=== PATIENT | male | born 1985 | race Caucasian/White ===

== ENCOUNTER 2021-09-03 18:34 | Inpatient (IN) ==
[2021-09-03] MEDS ORDERED: HYDROmorphone INJ 0.5 MG/0.5 ML SYR IV STA (18:53)
[2021-09-03] MEDS ORDERED: SODIUM CHLORIDE 0.9% 1000ML 1,000 ML IV STA (18:53)
[2021-09-03] MEDS ORDERED: ONDANSETRON INJ 2 MG/ML 2 ML VIAL IV STA (18:53)
--- NOTE | 2021-09-03 19:03 | Emergency Department Note ---
Impression & Plan Necrotizing pancreatitis, Pseudocyst of pancreas, Acute epigastric pain, Nausea, History of alcohol abuse ED Provider Note Provider: Christofer Hatch MD DATE OF SERVICE: 09/03/2021 CHIEF COMPLAINT: Pancreatitis HISTORY OF PRESENT ILLNESS: Patient is a 36-year-old gentleman history of previous alcohol abuse presenting here today after leaving AGAINST MEDICAL ADVICE from [facility] for pancreatitis. Patient states he had one prior episode in June around the [place] area was hospitalized for a month. States over the past 2 weeks he developed some mild epigastric abdominal disco mfort that worsened over the last several days and 2 days ago went to [facility]. Was diagnosed with pancreatitis. There as well as a pseudocyst. Patient was arranged to transfer to the [facility] system with a 10 to 14-day ETA for transfer. Was receiving IV fluids and nausea medicine antiemetics. Given the delay for transfer the patient decided to leave AGAINST MEDICAL ADVICE and come here for further treatment. Patient denies fever. Patient states he stopped alcohol abuse and only has a rare alcohol here and there anymore. Has been having some fatty food however and wonders if this may have provoked the recurrent pancreatitis. REVIEW OF SYSTEMS: A total of 10 review of systems was obtained and negative except as stated above in the HPI. PAST MEDICAL HISTORY: As noted above MEDICATIONS: Reviewed home medications SOCIAL HISTORY: Heavy alcohol use history much moderated recently, unemployed currently PHYSICAL EXAM: GENERAL: alert and oriented in no acute distress on stretcher Head: normocephalic and atraumatic EYES: No injection, discharge or icterus. NECK: Trachea midline. LUNGS: Airway patent. No retractions and no tachypnea HEART: Regular rate and rhythm. No chest wall tenderness ABDOMEN: Soft with mid upper abdominal tenderness diffusely. SKIN: Acyanotic, warm, dry, without rashes EXTREMITIES: Without swelling, tenderness or deformity NEUROLOGICAL: No focal deficits. No aphasia. No facial droop or slurred speech. Ambulatory. EK bpm normal sinus rhythm. No PVC or PAC. No acute ST segment elevation or depression. QTC 453. CONTINUOUS CARDIAC MONITORING: was ordered and showed a heart rate of 80s-100s bpm in normal sinus rhythm to sinus tachycardia Patient's laboratory studies and imaging reviewed. Differential includes Appendicitis, infections, diverticulitis, obstruction, mesenteric ischemia, aortic pathology, inflammatory bowel disease, renal colic, PUD, pancreatitis, biliary pathology, hernia, volvulus, constipation, as well as other pathologies. IMPRESSION/MEDICAL DECISION MAKING: Patient with previous imaging and labs from [facility] where he was admitted for 2 days for pancreatitis. Sunday made come here for further care of a pseudocyst. Patient does have initial blood work and CT report. Patient in significant pain but afebrile here. Given some IV Dilaudid and antiemetics. CT scan repeated to look for change. Blood work today shows white blood cell count of 10.8 decreased from 11.6 on outside labs from 2 days ago. No significant hypokalemia or hyponatremia noted. Bilirubin of 0.7. No transaminitis. Lipase elevated 2532. Troponin undetectable and again I doubt this is cardiac in nature. CT report per radiology with evidence of necrotizing pancreatitis with multiloculated fluid collections likely a pseudocyst reportedly similar to previous imaging from the from outside facility that are available here. The splenic vein is patent. Trace ascites are noted that had somewhat increased from previous as well as a increased left greater than right pleural effusions. There was some sludge and nonspecific thickening of the gallbladder noted on the CT scan as well. Given the significant findings I discussed with gastroenterology Dr. Paez. She recommended the patient's pain was controlled he could likely be discharged home with clear diet recommendation a course of Cipro & Flagyl. Discussed with the patient. He has received several doses of Dilaudid for pain control. He did not feel comfortable going home at this time. Will admit for further pain control. Hospitalist made aware and plans for admission. Discussed briefly with general surgery he did not recommend any acute surgical intervention from their perspective at this time. Additional outside records will be attempted to be obtained. DIAGNOSIS: Necrotizing pancreatitis, pseudocyst of the pancreas, epigastric abdominal pain, nausea DISPOSITION: Hospitalist will evaluate Patient was agreeable with this plan. Past Med/Surg History Social History Smoking Status: Current every day smoker Feels Safe at Home: Yes Allergies Allergies Allergy/AdvReac Type Severity Reaction Status Date / Time No Known Allergies Allergy Unverified 09/03/21 19:43 Home Meds Home Medications Medication Instructions Recorded Confirmed amlodipine 10 mg tablet 10 mg PO BID 09/03/21 09/03/21 pantoprazole 40 mg tablet,delayed 40 mg PO BID 09/03/21 09/03/21 release Results & Data (ED) Vital Signs Vital Signs - 24 hr 09/03/21 18:37 09/03/21 22:21 Temperature 36.7 C Temperature Source Temporal Artery Scan Pulse Rate 106 H 66 Pulse Rhythm Regular Respiratory Rate 20 14 Respiratory Effort / Characteristics Non-Labored Spontaneous Respiratory Depth Normal Respiratory Pattern Regular Blood Pressure 145/104 H Blood Pressure Mean 117 Pulse Oximetry 98 95 Oxygen Delivery Method Room Air Room Air Sepsis Recent Fever Within 48 Hours No Sepsis New/Unexplained Change in Mental Status No Sepsis Action Taken by Nursing No Action Required Laboratory Data Result diagrams: 09/03/21 19:30 09/03/21 19:30 Lab Results 09/03/21 09/03/21 09/03/21 Range/Units 19:30 19:30 19:30 WBC 10.85 H (4.8-10.8) K/uL RBC 4.15 L (4.7-6.1) M/uL Hgb 12.9 L (14.0-18.0) g/dL POC Hgb (14.0-18.0) g/dl Hct 39.0 L (42-52) % POC Hct (42-52) % MCV 94.0 (80-100) fL MCH 31.1 (25-34) pg MCHC 33.1 (32-36) g/dL RDW Std Deviation 54.4 H (36.4-46.3) fL RDW Coeff of Gay 15.7 H (11.5-14.5) % Plt Count 429 H (130-400) K/uL MPV 10.3 (7.4-10.4) fL Immature Gran % (Auto) 0.2 % Neut % (Auto) 79.5 % Lymph % (Auto) 11.6 % Cabell % (Auto) 7.1 % Eos % (Auto) 1.4 % Baso % (Auto) 0.2 % Neut # (Auto) 8.63 H (1.4-6.5) K/uL Lymph # (Auto) 1.26 (1.2-3.4) K/uL Cabell # (Auto) 0.77 H (0.11-0.59) K/uL Eos # (Auto) 0.15 (0-0.5) K/uL Baso # (Auto) 0.02 (0-0.2) K/uL Immature Gran # (Auto) 0.02 (0.00-0.02) K/uL PT 14.8 H (9.0-12.0) Seconds INR 1.5 H (0.9-1.1) POC Sodium (135-144) mmol/L Sodium 138 (136-145) mmol/L POC Potassium (3.3-5.0) mmol/L Potassium 3.6 (3.5-5.1) mmol/L POC Chloride (101-112) mmol/L Chloride 104 (98-107) mmol/L Carbon Dioxide 20 L (21-32) mmol/L POC Total CO2 (24-31) mmol/L Anion Gap 14.0 H (3-11) POC Anion Gap (16-25) mmol/L POC BUN (7-18) mg/dl BUN 4 L (7-18) mg/dl Creatinine 0.44 L (0.6-1.4) mg/dl POC Creatinine (0.6-1.3) mg/dl Est Cr Clr Drug Dosing 244.3 ml/min Est GFR ( Amer) > 150.0 ml/min Est GFR (Non-Af Amer) 149.0 ml/min BUN/Creatinine Ratio 8.4 L (10-20) Glucose 94 (70-99) mg/dl POC Glucose (other) (70-99) mg/dl Calcium 8.3 L (8.5-10.1) mg/dl POC Ioniz Calcium Elsi (1.12-1.32) mmol/l Total Bilirubin 0.7 (0.2-1) mg/dl AST 31 (15-37) U/L ALT 14 (12-78) Alkaline Phosphatase 162 H (45-117) U/L Troponin I < 0.015 (0-0.045) ng/ml Total Protein 6.2 L (6.4-8.2) gm/dl Albumin 2.0 L (3.4-5.0) gm/dl Globulin 4.2 H (2.5-4.0) gm/dl Albumin/Globulin Ratio 0.5 L (0.9-2) Lipase 2532 H (73-393) U/L Urine Color Urine Appearance (Clear) Urine pH (4.5-7.5) Ur Specific Hallett (1.000-1.030) Urine Protein (Negative) Urine Glucose (UA) (Negative) Urine Ketones (Negative) Urine Blood (Negative) Urine Nitrite (Negative) Urine Bilirubin (Negative) Urine Urobilinogen (Negative) Ur Leukocyte Esterase (Negative) SARS-CoV-2, RNA, NAAT (NEGATIVE) 09/03/21 09/03/21 09/03/21 Range/Units 19:38 22:18 22:18 WBC (4.8-10.8) K/uL RBC (4.7-6.1) M/uL Hgb (14.0-18.0) g/dL POC Hgb 13.9 L (14.0-18.0) g/dl Hct (42-52) % POC Hct 41 L (42-52) % MCV (80-100) fL MCH (25-34) pg MCHC (32-36) g/dL RDW Std Deviation (36.4-46.3) fL RDW Coeff of Gay (11.5-14.5) % Plt Count (130-400) K/uL MPV (7.4-10.4) fL Immature Gran % (Auto) % Neut % (Auto) % Lymph % (Auto) % Cabell % (Auto) % Eos % (Auto) % Baso % (Auto) % Neut # (Auto) (1.4-6.5) K/uL Lymph # (Auto) (1.2-3.4) K/uL Cabell # (Auto) (0.11-0.59) K/uL Eos # (Auto) (0-0.5) K/uL Baso # (Auto) (0-0.2) K/uL Immature Gran # (Auto) (0.00-0.02) K/uL PT (9.0-12.0) Seconds INR (0.9-1.1) POC Sodium 137 (135-144) mmol/L Sodium (136-145) mmol/L POC Potassium 3.5 (3.3-5.0) mmol/L Potassium (3.5-5.1) mmol/L POC Chloride 102 (101-112) mmol/L Chloride (98-107) mmol/L Carbon Dioxide (21-32) mmol/L POC Total CO2 21 L (24-31) mmol/L Anion Gap (3-11) POC Anion Gap 18.0 (16-25) mmol/L POC BUN < 3 L (7-18) mg/dl BUN (7-18) mg/dl Creatinine (0.6-1.4) mg/dl POC Creatinine 0.4 L (0.6-1.3) mg/dl Est Cr Clr Drug Dosing ml/min Est GFR ( Amer) ml/min Est GFR (Non-Af Amer) ml/min BUN/Creatinine Ratio (10-20) Glucose (70-99) mg/dl POC Glucose (other) 95 (70-99) mg/dl Calcium (8.5-10.1) mg/dl POC Ioniz Calcium Elsi 1.16 (1.12-1.32) mmol/l Total Bilirubin (0.2-1) mg/dl AST (15-37) U/L ALT (12-78) Alkaline Phosphatase (45-117) U/L Troponin I (0-0.045) ng/ml Total Protein (6.4-8.2) gm/dl Albumin (3.4-5.0) gm/dl Globulin (2.5-4.0) gm/dl Albumin/Globulin Ratio (0.9-2) Lipase (73-393) U/L Urine Color Yellow Urine Appearance Clear (Clear) Urine pH 6.0 (4.5-7.5) Ur Specific Hallett > 1.045 H (1.000-1.030) Urine Protein Negative (Negative) Urine Glucose (UA) Negative (Negative) Urine Ketones 4+ H (Negative) Urine Blood Negative (Negative) Urine Nitrite Negative (Negative) Urine Bilirubin Negative (Negative) Urine Urobilinogen Negative (Negative) Ur Leukocyte Esterase Negative (Negative) SARS-CoV-2, RNA, NAAT NEGATIVE (NEGATIVE) Administered Medications Ciprofloxacin (Cipro / D5w) 400 mg in 200 mls @ 100 mls/hr IV NOW STA; Protocol Stop: 09/03/21 23:46 Last Admin: 09/03/21 22:14 Dose: 100 mls/hr Documented by: [id number] Discontinued Medications Hydromorphone HCl (Hydromorphone Inj 0.5 Mg/0.5 Ml Syr) 1 mg IV NOW STA Stop: 09/03/21 18:54 Last Admin: 09/03/21 19:30 Dose: 1 mg Documented by: [id number] Hydromorphone HCl (Hydromorphone Inj 1 Mg/Ml Syringe) 1 mg IV NOW STA Stop: 09/03/21 21:13 Last Admin: 09/03/21 21:35 Dose: 1 mg Documented by: [id number] Sodium Chloride (Nss 1000ml) 1,000 mls @ 999 mls/hr IV .Q1H1M STA Stop: 09/03/21 19:53 Last Infusion: 09/03/21 20:42 Dose: 0 mls/hr Documented by: [id number] Admin: 09/03/21 19:31 Dose: 999 mls/hr Documented by: [id number] Ioversol (Optiray 320 100ml) 94 ml IV ONCE ONE Stop: 09/03/21 19:54 Last Admin: 09/03/21 19:54 Dose: 94 ml Documented by: [id number] Metronidazole (Metronidazole 500 Mg Tab) 500 mg PO NOW STA Stop: 09/03/21 21:48 Last Admin: 09/03/21 22:14 Dose: 500 mg Documented by: [id number] Ondansetron HCl (Ondansetron Inj 2 Mg/Ml 2 Ml Vial) 4 mg IV NOW STA Stop: 09/03/21 18:54 Last Admin: 09/03/21 19:30 Dose: 4 mg Documented by: [id number] Imaging Data Radiologist's Impression: Abdomen/Pelvis CT 09/03/21 18:53 CT SCAN OF THE ABDOMEN AND PELVIS WITH IV CONTRAST CLINICAL HISTORY: Generalized abdominal pain. Acute pancreatitis. COMPARISON STUDY: Abdominal CT dated 09/01/2021. TECHNIQUE: Following the IV administration of 94 cc of Optiray 320, CT scan of the abdomen and pelvis is performed from the lung bases to the proximal femora. Images are reviewed in the axial, sagittal, and coronal planes. IV contrast was administered without complication. A dose lowering technique was utilized adhering to the principles of ALARA. CT DOSE: 405.89 mGy.cm FINDINGS: Lung bases: The heart is normal in size and without pericardial effusion. There are small left and trace right pleural effusions with bibasilar consolidation. T hese have increased in size from previous. There is a 4 mm focus of pleural- based nodularity in the right middle lobe along the minor fissure seen on image #18. 4 mm nodules in the right middle and right lower lobes are seen on images #28 and #38. Liver: The contrast-enhanced liver is enlarged, measuring 22.5 cm in length. The liver demonstrates diffusely diminished attenuation consistent with severe hepatic steatosis. There are foci of geographic fatty sparing. There is no intrahepatic biliary ductal dilatation. The hepatic veins and portal veins are patent. Gallbladder: The gallbladder is filled with hyperdense material. This could represent stones/sludge and/or vicariously excreted contrast. The gallbladder wall appears thickened. No pericholecystic inflammation is seen. Spleen: Normal in size and attenuation. Pancreas: There is marked peripancreatic inflammation and fluid. The pancreatic head and neck appear edematous and enhance normally. The pancreatic body and tail are not well-visualized and likely necrotic. A peripherally enhancing fluid collection is seen in the expected location of the pancreatic body and tail. This measures approximately 4 x 9.5 x 3.5 cm as seen on axial image #34. A loculation extends anteriorly and inferiorly on image #181 measuring approximately 6 x 2.5 cm in axial dimension. An additional loculated fluid collection along the lesser curvature of the stomach is seen on axial image #164 and measures approximately 2.5 x 5 x 3.5 cm. The splenic vein is patent. Adrenal glands: Unremarkable. Kidneys: The contrast enhanced kidneys are normal in size and without hydronephrosis. The kidneys enhance symmetrically. Abdominal vasculature: The abdominal aorta is normal in course and caliber. Bowel: There is no bowel obstruction. The appendix is well-visualized and normal. Inflammatory change of the stomach and duodenum is likely related to adjacent pancreatitis. Peritoneum: No intraperitoneal free air is identified. There is trace upper abdominal ascites, as well as a small volume of ascites in the pelvis. There are fat-containing umbilical and supraumbilical hernias. Lymphadenopathy: Enlarged upper abdominal lymph nodes measure up to 2 cm in short axis and are likely both reactive and related to chronic liver disease. Pelvic viscera: The bladder is mildly distended but otherwise normal in appearance. The prostate and seminal vesicles are normal as visualized. Skeletal structures: No lytic or blastic lesions are seen. There is a chronic/healed left transverse process fracture of L3. IMPRESSION: 1. Findings consistent with necrotizing pancreatitis as detailed above. 2. There is a large, thick walled, and multiloculated fluid collection in the expected location of the pancreatic body and tail which likely presents a pseudocyst. An additional similar-appearing loculated fluid collection is seen along the greater curvature of the stomach. These are similar to 09/01/2021. The sterility of these fluid collections cannot be evaluated by imaging. 3. Small volume of abdominopelvic ascites. This has modestly increased from previous. 4. Hepatomegaly and severe hepatic steatosis. 5. Left larger than right pleural effusions with associated bibasilar con solidation. These have increased from previous. 6. Hyperdense material within the gallbladder could represent stones/sludge and/or vicariously excreted contrast. There is nonspecific gallbladder wall thickening which may be related to adjacent hepatocellular disease. Correlate clinically for evidence of concurrent cholecystitis. 7. Additional findings as above. ACT 112: Negative or not required by law. Electronically signed by: Davidson Milan M.D. 09/03/2021 8:21 PM Discharge Plan Visit Data Chief Complaint: Illness Stated Complaint: PANCREATITIS ED Provider: Christofer Hatch Discharge Problem: Necrotizing pancreatitis, Pseudocyst of pancreas, Acute epigastric pain, Nausea, History of alcohol abuse Patient Disposition: Being Evaluated by Hospitalist Condition: Good Forms Stand Alone Forms: [facility] [employer] Prescriptions Prescriptions: No Action amlodipine 10 mg tablet 10 mg PO BID RF: 0 pantoprazole 40 mg tablet,delayed release (DR/EC) 40 mg PO BID RF: 0 Referrals Referrals: PCP,NO [Primary Care Provider] -
[2021-09-03 19:41] LABS: Basophils # (auto) 0.02 K/uL (0-0.2); Basophils % (auto) 0.2 %; Eosinophils # (auto) 0.15 K/uL (0-0.5); Eosinophils % (auto) 1.4 %; Hemoglobin 12.9 g/dL (14.0-18.0); Immature Granulocytes # (auto) 0.02 K/uL (0.00-0.02); Immature Granulocytes % (auto) 0.2 %; Lymphocytes # (auto) 1.26 K/uL (1.2-3.4); Lymphocytes % (auto) 11.6 %; Mean Corpuscular Hemoglobin 31.1 pg (25-34); Mean Corpuscular Hgb Conc 33.1 g/dL (32-36); Mean Platelet Volume 10.3 fL (7.4-10.4); Monocytes # (auto) 0.77 K/uL (0.11-0.59); Monocytes % (auto) 7.1 %; Neutrophils # (auto) 8.63 K/uL (1.4-6.5); Neutrophils % (auto) 79.5 %; Platelet Count 429 K/uL (130-400); RDW Coefficient of Variation 15.7 % (11.5-14.5); RDW Standard Deviation 54.4 fL (36.4-46.3); Red Blood Count 4.15 M/uL (4.7-6.1); White Blood Count 10.85 K/uL (4.8-10.8)
[2021-09-03] MEDS ORDERED: OPTIRAY 320 100ml IV ONE (19:53)
[2021-09-03 19:55] LABS: iSTAT Blood Urea Nitrogen < 3 mg/dl (7-18); iSTAT Carbon Dioxide 21 mmol/L (24-31); iSTAT Chloride 102 mmol/L (101-112); iSTAT Creatinine 0.4 mg/dl (0.6-1.3); iSTAT Glucose 95 mg/dl (70-99); iSTAT Hematocrit 41 % (42-52); iSTAT Hemoglobin 13.9 g/dl (14.0-18.0); iSTAT Ionized Calcium 1.16 mmol/l (1.12-1.32); iSTAT Potassium 3.5 mmol/L (3.3-5.0); iSTAT Sodium 137 mmol/L (135-144)
[2021-09-03 19:58] LABS: Alanine Aminotransferase 14 (12-78); Aspartate Aminotransferase 31 U/L (15-37); BUN Creatinine Ratio 8.4 (10-20); Blood Urea Nitrogen 4 mg/dl (7-18); Calcium 8.3 mg/dl (8.5-10.1); Carbon Dioxide 20 mmol/L (21-32); Chloride 104 mmol/L (98-107); Creatinine Clr Calc Pharmacy 244.3 ml/min; Est GFR (African American) > 150.0 ml/min; Glucose 94 mg/dl (70-99); Potassium 3.6 mmol/L (3.5-5.1); Sodium 138 mmol/L (136-145)
[2021-09-03 19:59] LABS: INR 1.5 (0.9-1.1); Prothrombin Time 14.8 Seconds (9.0-12.0)
[2021-09-03 20:03] LABS: Albumin Globulin Ratio 0.5 (0.9-2); Alkaline Phosphatase 162 U/L (45-117); Bilirubin,Total 0.7 mg/dl (0.2-1); Globulin 4.2 gm/dl (2.5-4.0); Lipase 2532 U/L (73-393); Total Protein 6.2 gm/dl (6.4-8.2); Troponin I < 0.015 ng/ml (0-0.045)
--- NOTE | 2021-09-03 20:23 | CT Scan Report ---
CT SCAN OF THE ABDOMEN AND PELVIS WITH IV CONTRAST CLINICAL HISTORY: Generalized abdominal pain. Acute pancreatitis. COMPARISON STUDY: Abdominal CT dated 09/01/2021. TECHNIQUE: Following the IV administration of 94 cc of Optiray 320, CT scan of the abdomen and pelvi s is performed from the lung bases to the proximal femora. Images are reviewed in the axial, sagittal , and coronal planes. IV contrast was administered without complication. A dose lowering technique wa s utilized adhering to the principles of ALARA. CT DOSE: 405.89 mGy.cm FINDINGS: Lung bases: The heart is normal in size and without pericardial effusion. There are small left and tr carolyn right pleural effusions with bibasilar consolidation. These have increased in size from previous. There is a 4 mm focus of pleural-based nodularity in the right middle lobe along the minor fissure s een on image #18. 4 mm nodules in the right middle and right lower lobes are seen on images #28 and # 38. Liver: The contrast-enhanced liver is enlarged, measuring 22.5 cm in length. The liver demonstrates d iffusely diminished attenuation consistent with severe hepatic steatosis. There are foci of geographi c fatty sparing. There is no intrahepatic biliary ductal dilatation. The hepatic veins and portal vei ns are patent. Gallbladder: The gallbladder is filled with hyperdense material. This could represent stones/sludge a nd/or vicariously excreted contrast. The gallbladder wall appears thickened. No pericholecystic infla mmation is seen. Spleen: Normal in size and attenuation. Pancreas: There is marked peripancreatic inflammation and fluid. The pancreatic head and neck appear edematous and enhance normally. The pancreatic body and tail are not well-visualized and likely necro tic. A peripherally enhancing fluid collection is seen in the expected location of the pancreatic bod y and tail. This measures approximately 4 x 9.5 x 3.5 cm as seen on axial image #34. A loculation ext ends anteriorly and inferiorly on image #181 measuring approximately 6 x 2.5 cm in axial dimension. A n additional loculated fluid collection along the lesser curvature of the stomach is seen on axial im age #164 and measures approximately 2.5 x 5 x 3.5 cm. The splenic vein is patent. Adrenal glands: Unremarkable. Kidneys: The contrast enhanced kidneys are normal in size and without hydronephrosis. The kidneys enh ance symmetrically. Abdominal vasculature: The abdominal aorta is normal in course and caliber. Bowel: There is no bowel obstruction. The appendix is well-visualized and normal. Inflammatory walker e of the stomach and duodenum is likely related to adjacent pancreatitis. Peritoneum: No intraperitoneal free air is identified. There is trace upper abdominal ascites, as wel l as a small volume of ascites in the pelvis. There are fat-containing umbilical and supraumbilical h ernias. Lymphadenopathy: Enlarged upper abdominal lymph nodes measure up to 2 cm in short axis and are likely both reactive and related to chronic liver disease. Pelvic viscera: The bladder is mildly distended but otherwise normal in appearance. The prostate and seminal vesicles are normal as visualized. Skeletal structures: No lytic or blastic lesions are seen. There is a chronic/healed left transverse process fracture of L3. IMPRESSION: 1. Findings consistent with necrotizing pancreatitis as detailed above. 2. There is a large, thick walled, and multiloculated fluid collection in the expected location of th e pancreatic body and tail which likely presents a pseudocyst. An additional similar-appearing locula kathi fluid collection is seen along the greater curvature of the stomach. These are similar to 021. The sterility of these fluid collections cannot be evaluated by imaging. 3. Small volume of abdominopelvic ascites. This has modestly increased from previous. 4. Hepatomegaly and severe hepatic steatosis. 5. Left larger than right pleural effusions with associated bibasilar consolidation. These have incre ased from previous. 6. Hyperdense material within the gallbladder could represent stones/sludge and/or vicariously excret ed contrast. There is nonspecific gallbladder wall thickening which may be related to adjacent hepato cellular disease. Correlate clinically for evidence of concurrent cholecystitis. 7. Additional findings as above. ACT 112: Negative or not required by law. Electronically signed by: Davidson Milan M.D. 09/03/2021 8:21 PM
[2021-09-03] MEDS ORDERED: HYDROmorphone INJ 1 MG/ML SYRINGE IV STA (21:12)
[2021-09-03] MEDS ORDERED: CIPROFLOXACIN / D5W 400 MG/200 ML BAG IV STA (21:47)
[2021-09-03] MEDS ORDERED: metroNIDAZOLE 500 MG TAB PO STA (21:47)
[2021-09-03] MEDS ORDERED: PIPERACILL/TAZOBAC CONSULT ACTIVE PRN (22:35)
[2021-09-03] MEDS ORDERED: LACTATED RINGER'S 1,000 ML IV ONE (22:35)
[2021-09-03] MEDS ORDERED: PIPERACILLIN/TAZOBACTAM 4.5 GM in DEXTROSE 5% 100 ML IV SCH (22:35)
[2021-09-03] MEDS ORDERED: ONDANSETRON INJ 2 MG/ML 2 ML VIAL IV PRN (22:35)
[2021-09-03] MEDS ORDERED: PHYTONADIONE 10 MG in SODIUM CHLORIDE 0.9% 50 ML IV ONE (22:35)
--- NOTE | 2021-09-03 22:36 | History & Physical Report ---
Date of Service September 03, 2021 Assessment & Plan (1) Necrotizing pancreatitis: Plan: 36 yo M with Hx alcohol use disorder, HTN with recent diagnosis of necrotizing pancreatitis and pancreatic pseudocyst admitted for IV fluids, antibiotics, and pain control. Necrotizing pancreatitis, pancreatic pseudocyst: Recently admitted to [facility] and left AMA. Presented to [facility] with worsening abdominal pain, nausea, difficulty with PO intake. CTAP as follows: gallbladder with hyperdense material (stones/sludge), thickening, no pericholecystic inflammation. Pancreas with peripancreatic inflammation and fluid, pancreatic head/neck edema with pancreatic body/tail likely necrosis. 4x9.5x3.5cm fluid collection around pancreatic body/tail, with loculation extending anterior and inferior measuring 6x2.5cm. General Surgery and GI consulted and appreciate recommendations: US RUQ ordered to evaluate for gallbladder pathology. Not likely to perform intervention on fluid collections at this facility. Consideration was had for IR drainage of fluid collection at tertiary facility but patient left AMA from other hospital before transfer could occur. Received 2L IVF in ER; will continue with LR at 250cc/hr for pancreatitis. NPO at this time with advance diet as tolerated and based on specialist philatelic consultant recommendations. Zosyn 4.5g q8h for necrotizing pancreatitis. Dilaudid q3h as needed for pain. Awaiting outside records from [place] and [facility] regarding previous admissions. May ultimately require transfer to tertiary facility for IR drainage if symptoms not improving or worsening despite NPO, IVF, IV Abx. Hepatic steatosis, Hx alcohol use disorder: History of alcohol use disorder, with significant decrease in alcohol use since June per patient history. No signs of withdrawal on exam at this time; AWSS at risk protocol initiated. CTAP with severe hepatic steatosis and labwork showing elevated INR to 1.5. LFTs normal with elevated Alk Phos. Hepatitis panel pending. Daily IV thiamine and folic acid ordered. Vitamin K 10mg x1 ordered with repeat coags in AM. Mentating well, no indication to check ammonia level at this time. Will need GI/hepatology outpatient follow up on discharge for hepatic steatosis. Hypertension: Continue amlodipine 10mg BID. BP elevated in ER; likely that pain is contributory. Returned to normal range with improvement in pain. GERD: Holding PPI while NPO; famotidine 20mg IV BID for now. Code Status: FULL CODE FEN/GI: NPO, LR at 250cc/hr DVT ppx: SCDs Dispo: Telemetry (2) Pseudocyst of pancreas: (3) History of alcohol abuse: (4) Hepatic steatosis: (5) Hypertension: (6) GERD (gastroesophageal reflux disease): History of Present Illness Chief Complaint: abdominal pain, pancreatitis Primary Care Provider: NO PCP 36 yo M Hx alcohol use disorder, hypertension, GERD, recent diagnosis of pancreatitis June 2021 presents for worsening abdominal pain. Per patient, he left AMA from [facility] earlier today (was admitted for pancreatitis and pancreatic pseudocyst) due to being told it would be 10-14 days for him to be transferred to tertiary care facility for drainage. When his symptoms worsened at home he came to [facility]. In ER patient had CTAP with severe hepatic steatosis and necrosis and pseudocyst of the pancreas. WBC count elevated to 10.85, LFTs in normal range with Alk Phos of 162 and lipase of 2532. He was given IV Cipro and PO Flagyl and due to symptoms and significant fluid collection with pancreatic necrosis concern hospitalist service was consulted for admission. He reports improvement in his pain and nausea with Dilaudid and Zofran provided by ER. He denies chest pain, SOB. He endorses constipation for several days. He admits that he had been drinking daily prior to his first pancreatitis diagnosis in June, but reports significant decrease in alcohol consumptions since that time and "can count the amount of beers he has had on one hand". He denies IV drug use. He endorses having taken a few doses of Tylenol at home for belly pain before coming to ER. Allergies Allergy/AdvReac Type Severity Reaction Status Date / Time No Known Allergies Allergy Unverified 09/03/21 19:43 Home Medications Medication Instructions Recorded Confirmed Type amlodipine 10 mg tablet 10 mg PO BID 09/03/21 09/03/21 History pantoprazole 40 mg tablet,delayed 40 mg PO BID 09/03/21 09/03/21 History release Past Med/Surg History Medical History Alcohol use disorder GERD (gastroesophageal reflux disease) Hypertension Recurrent pancreatitis Social History Smoking Status: Current every day smoker Current Living Situation: Alone Feels Safe at Home: Yes Review of Systems Review of Systems: All systems reviewed & are unremarkable except as noted in HPI & below Constitutional: no fever, no chills and no malaise Respiratory: no cough and no dyspnea Cardiovascular: no chest pain, no palpitations and no edema Gastrointestinal: + abdominal pain (epigastric to LUQ) and + constipation; no diarrhea/loose stools Physical Exam Constitutional: WD/WN, vitals as above Eyes: PERRL, conjunctivae normal, anicteric sclerae ENMT: external ear and nose normal, oropharynx normal Neck: normal visual inspection Respiratory: normal respiratory effort, lungs clear to auscultation Cardiovascular: RRR, no murmur, no edema Gastrointestinal (Abdomen): normal bowel sounds. Abdomen soft, tender (worst in epigastric and LUQ regions but mild diffuse), no rebound or guarding Musculoskeletal: no cyanosis or clubbing, extremities motor strength 5/5 Skin: no rashes, warm and dry Neurologic: AAOx3, normal speech. Normal visual acuity bilaterally. Sensation grossly intact. No tremor. Psychiatric: A+Ox3, euthymic affect Results & Data Results & Data ([facility]) Vital Signs (Past 12 Hours) Vital Signs Temp Pulse Resp BP Pulse Ox 09/03/21 22:21 66 14 95 09/03/21 18:37 36.7 C 106 H 20 145/104 H 98 Code Status & VTE Plan VTE Prophylaxis Plan VTE Prophylaxis will be ordered: Yes Supervising Physician Co-Signing Physician Notes Attending addendum: I have physically seen this patient, have supervised the medical residents activities, and agree with the H&P unless as otherwise noted. Assessment and Plan: Necrotizing pancreatitis/pseudocyst/fluid collection along greater curvature of stomach- NPO IV fluids as per protocol noted Zosyn 4.5 g IV every 8 hours Dilaudid 0.5 mg IV every 3 hours as needed severe pain Famotidine 20 mg IV every 12 hours Zofran 4 mg IV every 6 hours as needed Consult gastroenterology and surgery Records for review from [facility] and [facility] Alcohol use disorder- AWSS protocol Thiamine and folate IV Vitamin K 10 mg IV x1 for INR 1.5 remaining orders and notations as noted Resident Activity Tracking Resident Involvement: Resident Care Provided Care Provided: Adult Hospital Medicine
[2021-09-03 22:48] LABS: Appearance Urine Clear (Clear); Bilirubin Urine Negative (Negative); Blood Urine Negative (Negative); Color Urine Yellow; Glucose Urine UA Negative (Negative); Ketones Urine 4+ (Negative); Leukocyte Esterase Urine Negative (Negative); Nitrite Urine Negative (Negative); Protein Urine Negative (Negative); Specific Gravity Urine > 1.045 (1.000-1.030); Urobilinogen Urine Negative (Negative)
[2021-09-03] MEDS ORDERED: PIPERACILLIN/TAZOBACTAM 4.5 GM/120 ML BAG IV STA (23:40)
[2021-09-03] MEDS: HYDROmorphone INJ 1 MG/ML SYRINGE IV PRN (23:53)
[2021-09-04] MEDS: LACTATED RINGER'S 1,000 ML IV SCH ×6 (00:33→21:35)
[2021-09-04] MEDS ORDERED: LORazepam 1 MG/2 ML VIAL IV PRN (01:14)
[2021-09-04] MEDS ORDERED: bisacodyL 10 MG SUPP PR PRN (01:14)
[2021-09-04] MEDS ORDERED: SOD PHOSPHATE/SOD BIPHOSPHATE ENEMA 132 ML BTL PR PRN (01:14)
[2021-09-04] MEDS: FOLIC ACID 1 MG in SYRINGE 9.8 ML IV SCH ×2 (02:26→09:56)
[2021-09-04] MEDS: THIAMINE HCL 100 MG in SYRINGE 9 ML IV SCH ×2 (02:27→09:56)
[2021-09-04] MEDS: HYDROmorphone INJ 1 MG/ML SYRINGE IV PRN ×4 (03:13→13:02)
[2021-09-04] MEDS: PIPERACILLIN/TAZOBACTAM 3.375 GM in DEXTROSE 5% 100 ML IV SCH ×3 (06:27→21:35)
--- NOTE | 2021-09-04 06:58 | Electrocardiogram Report ---
Test Reason : Blood Pressure : / mmHG Vent. Rate : 073 BPM Atrial Rate : 073 BPM P-R Int : 148 ms QRS Dur : 090 ms QT Int : 412 ms P-R-T Axes : 044 031 038 degrees QTc Int : 453 ms Poor data quality, interpretation may be adversely affected Normal sinus rhythm Nonspecific ST abnormality Abnormal ECG No previous ECGs available Confirmed by Dominik Landa ([id number]) on 09/04/2021 6:58:19 AM Referred By: REFERRED SELF Confirmed By:Dominik Landa
--- NOTE | 2021-09-04 07:43 | Ultrasound Report ---
US liver HISTORY: 36 years-old Male pancreatitis, ?gallstones acute pancreatitis COMPARISON: CT abdomen and pelvis 09/03/2021 TECHNIQUE: Multiple real-time sonographic images of the abdominal right upper quadrant were obtained assessing grayscale appearance and color flow FINDINGS: Complex collection in the region of the pancreatic body and tail redemonstrated measuring 8.6 x 4.2 x 4.3 cm the liver measures up to 22 cm in length and demonstrates increased echogenicity without hepa tic mass. Trace perihepatic ascites. Marked gallbladder wall thickening measures up to 1.4 cm. There is a considerable amount of gallbladd er sludge without shadowing cholelithiasis. Trace pericholecystic fluid. Common bile duct is normal m easuring 6 mm. Imaged right kidney is unremarkable without hydronephrosis. IMPRESSION: 1. Gallbladder wall thickening and sludge are noted without definite cholelithiasis. Correlate clinic ally to exclude acute cholecystitis. 2. Complex peripancreatic fluid collection is better characterized on the CT abdomen and pelvis study from 09/03/2021. 3. No biliary ductal dilation. 4. Hepatomegaly with hepatic steatosis. ACT 112: Negative or not required by law. The above report was generated using voice recognition software. It may contain grammatical, syntax o r spelling errors. Electronically signed by: Saeid Gilbert M.D. 09/04/2021 7:41 AM
[2021-09-04 07:57] LABS: Basophils # (auto) 0.02 K/uL (0-0.2); Basophils % (auto) 0.3 %; Eosinophils # (auto) 0.37 K/uL (0-0.5); Eosinophils % (auto) 4.8 %; Hematocrit (blood only) 37.5 % (42-52); Hemoglobin 12.4 g/dL (14.0-18.0); Immature Granulocytes # (auto) 0.02 K/uL (0.00-0.02); Immature Granulocytes % (auto) 0.3 %; Lymphocytes # (auto) 1.31 K/uL (1.2-3.4); Mean Corpuscular Hemoglobin 30.5 pg (25-34); Mean Corpuscular Hgb Conc 33.1 g/dL (32-36); Mean Corpuscular Volume 92.1 fL (80-100); Mean Platelet Volume 10.5 fL (7.4-10.4); Monocytes # (auto) 0.81 K/uL (0.11-0.59); Monocytes % (auto) 10.5 %; Neutrophils # (auto) 5.17 K/uL (1.4-6.5); Neutrophils % (auto) 67.1 %; Platelet Count 384 K/uL (130-400); RDW Standard Deviation 54.4 fL (36.4-46.3); Red Blood Count 4.07 M/uL (4.7-6.1)
[2021-09-04 08:21] LABS: Prothrombin Time 13.8 Seconds (9.0-12.0)
[2021-09-04 08:24] LABS: INR 1.4 (0.9-1.1)
[2021-09-04 08:27] LABS: Alanine Aminotransferase 11 (12-78); Albumin Level 1.7 gm/dl (3.4-5.0); Aspartate Aminotransferase 20 U/L (15-37); BUN Creatinine Ratio 7.4 (10-20); Blood Urea Nitrogen 3 mg/dl (7-18); Carbon Dioxide 22 mmol/L (21-32); Chloride 107 mmol/L (98-107); Creatinine Clr Calc Pharmacy 262.1 ml/min; Est GFR (African American) > 150.0 ml/min; Est GFR (Non-African American) > 150.0 ml/min; Glucose 93 mg/dl (70-99); Potassium 3.5 mmol/L (3.5-5.1); Sodium 139 mmol/L (136-145)
[2021-09-04 08:51] LABS: Albumin Globulin Ratio 0.5 (0.9-2); Alkaline Phosphatase 122 U/L (45-117); Bilirubin,Total 0.8 mg/dl (0.2-1); Globulin 3.4 gm/dl (2.5-4.0); Total Protein 5.1 gm/dl (6.4-8.2)
[2021-09-04] MEDS ORDERED: PANTOprazole 40 MG TAB PO SCH (09:00)
--- NOTE | 2021-09-04 09:00 | Hospitalist Progress Note ---
Date of Service September 04, 2021 Assessment & Plan (1) Necrotizing pancreatitis: Plan: 36 yo M with Hx alcohol use disorder, HTN with recent diagnosis of necrotizing pancreatitis and pancreatic pseudocyst admitted for IV fluids, antibiotics, and pain control. Necrotizing pancreatitis, pancreatic pseudocyst: -Recently admitted to [facility] and left AMA. -Lipase 2532, AST 20, ALT 11, Alk phos 122 -CT abd/pelv with evidence of necrotizing pancreatitis, marked peripancreatic inflammation and fluid, as well as pseudocysts. -US liver showed gallbladder wall thickening and sludge without definite cholelithiasis. -2/2 history of alcohol abuse and history of pancreatic pseudocyst. -Patient placed on IVF at 250 cc/hr, Zosyn 4.5g q8h, NPO for bowel rest. -Dilaudid q3h PRN for pain. -General Surgery consulted. -Gallbladder thickening on CT and US likely 2/2 pancreatitis and hepatic steatosis. -No indication for current intervention. -Supportive management at this time recommended. -GI consulted. -continue current supportive management -Continue IVF, Zosyn, NPO. Hepatic steatosis, Hx alcohol use disorder: -History of alcohol use disorder, with significant decrease in alcohol use since June per patient history. -No signs of withdrawal on exam at this time; AWSS at risk protocol initiated. -CT abd/pelv with severe hepatic steatosis and labwork showing elevated INR to 1.5. -LFTs normal with elevated Alk Phos. -Hepatitis panel pending. -Daily IV thiamine and folic acid ordered. -Vitamin K 10mg x1 ordered with repeat coags in AM. -Mentating well, no indication to check ammonia level at this time. Hypertension: Continue amlodipine 10mg BID. BP elevated in ER; likely that pain is contributory. Returned to normal range with improvement in pain. GERD: Holding PPI while NPO; famotidine 20mg IV BID for now. Code Status: FULL CODE FEN/GI: NPO, LR at 250cc/hr DVT ppx: SCDs Dispo: Telemetry (2) Pseudocyst of pancreas: (3) History of alcohol abuse: (4) Hepatic steatosis: (5) Hypertension: (6) GERD (gastroesophageal reflux disease): Admission and Anticipated Discharge Date Admission Date: September 03, 2021 Supervising Physician Co-Signing Physician Notes Resident Physician Supervision Note: I independently interviewed and examined the patient and verified the latif history and physical, reviewed labs and image studies and agree with resident Dr. Eagle findings and care plan. Subjective Patient seen at the bedside this morning. Patient re-iterated to me that his epigastric/upper abdominal pain had been dull and ongoing for the past 2 and half weeks with a progression of sudden sharp constant pain developing on the . The pain is mostly upper abdominal but radiates to the RUQ and LUQ as well. Pain is worse with deep breathing. Patient has not eaten for at least a week due to vomiting when eating food, although he said he can tolerate water. He re-iterated he left [facility] from [facility] after learning that his transfer to [facility] would take 10-14 days potentially. Denies fevers, chills, shortness of breath. Per [facility] records from 07/18/2021: Patient transferred to [facility] from [facility] for pancreatitis. 06/28/2021 at [facility] patient presented had alcohol level of 200 and prior to going to hospital had been drinking at least 12 beers a day and half 1/5 rum. He completed detox at [facility] and had not been experiencing any withdrawal symptoms at [facility]. CT abd/pelv at this time showed diffusely markedly enlarged pancreas and signs consistent with marked pancreatic necrosis. GI and Surgery recommended IV fluid and pain m anagement. Patient improved over his course with increased PO intake and resolution of pain and was discharged. Per [facility] records from 09/01/2021: Patient came to [facility] for upper abdominal pain feeling similar to previous incident of pancreatitis. States ever since discharged from hospital had not had much to drink (alcohol). Stated he had 1 alcoholic seltzer the day prior to this visit and day of visit abdominal pain became much worse. Lipase elevated at 2067, alk phos elevated at 177. Patient case was discussed with previous hospitalist who said the patient was transferred for potential drainage of pseudocyst and recommended transfer again. Hospitalist at [facility] called [facility] and had gotten approval for transfer but a bed was not available yet. Patient wanted to leave [facility] even after risks were discussed. He eventually left A. Review of Systems Gastrointestinal: + abdominal pain, + early satiety, + nausea and + vomiting Physical Exam Constitutional: WD/WN, vitals as above Eyes: PERRL, conjunctivae normal, anicteric sclerae Respiratory: normal respiratory effort, lungs clear to auscultation Cardiovascular: RRR, no murmur, no edema Gastrointestinal (Abdomen): Soft, non-distended, tenderness to palpation of epigastric region the most, milder tenderness to palpation RUQ and LUQ. + Tadeo's. BS+ Results & Data Results & Data ([facility]) Vital Signs (Past 12 Hours) Vital Signs Temp Pulse Pulse Resp BP BP Pulse Ox 09/04/21 03:15 36.7 C 71 18 129/71 97 09/04/21 01:20 60 14 121/70 98 09/04/21 01:14 78 14 139/95 95 09/04/21 00:03 66 14 110/78 98 09/03/21 22:21 66 14 95 Pulse Ox 09/04/21 03:15 09/04/21 01:20 09/04/21 01:14 97 09/04/21 00:03 09/03/21 22:21 Resident Activity Tracking Resident Involvement: Resident Care Provided Care Provided: Adult Hospital Medicine
[2021-09-04] MEDS ORDERED: FAMOTIDINE 20MG/5ML IV PUSH IV ONE (09:44)
[2021-09-04] MEDS: FAMOTIDINE 20 MG in SYRINGE 3 ML IV SCH ×2 (09:55→21:35)
[2021-09-04] MEDS: amLODIPine BESYLATE 5 MG TAB PO SCH ×2 (09:55→21:35)
--- NOTE | 2021-09-04 11:05 | Surgery Consultation ---
Date of Consultation September 04, 2021 Assessment & Plan (1) Pseudocyst of pancreas: Likely that gallbladder changes are secondary to pancreatitis and not the source. May consider cholecystectomy in the distant future. Await GI evaluation. Please call again if there are any new concerns. Supervising Physician Co-Signing Physician Notes Patient seen and examined, labs and image reviewed, agree with above. 36-year-o ld male with history of alcoholic pancreatitis, admitted overnight due to increasing pain. He was recently hospitalized at [facility] with plans to transfer to [facility] for necrotizing pancreatitis with pseudocyst. He elected to be discharged home but had increasing pain and returned. On exam is afebrile stable vitals. Abdomen soft, tender to palpation in the epigastrium with no guarding. Lipase elevated. CT reviewed and interpreted by myself, agree with pancreatitis with likely necrosis and pseudocyst. Gallbladder is thickened but given the liver disease and pancreatitis, this is likely secondary to the underlying process. Ultrasound with possible sludge but no stones. At this point there is no indication for cholecystectomy. Could entertained EUS as an outpatient to assess for microlithiasis. Patient will need evaluation of a pseudocyst possible drainage. Continue antibiotics for pancreatic necrosis. If cholecystectomy is warranted, we would wait several weeks to perform. Await GI input. Surgery will follow peripherally. History of Present Illness Attending Physician: Mary Murphy MD History of Present Illness 36 y/o male presented to [facility] last evening after leaving [facility] for alcoholic pancreatitis. He was awaiting transfer to another facility for pancreatic pseudocyst and was told it would be 10-14 day wait. His initial pancreatitis occurred in June. He has been abstaining from alcohol since then. Allergies Allergy/AdvReac Type Severity Reaction Status Date / Time No Known Allergies Allergy Unverified 09/03/21 19:43 Home Medications Medication Instructions Recorded Confirmed Type amlodipine 10 mg tablet 10 mg PO BID 09/03/21 09/03/21 History pantoprazole 40 mg tablet,delayed 40 mg PO BID 09/03/21 09/03/21 History release Patient History Medical History Alcohol use disorder GERD (gastroesophageal reflux disease) Hypertension Recurrent pancreatitis Social History Smoking Status: Current every day smoker Current Living Situation: Alone Feels Safe at Home: Yes Review of Systems Constitutional: no fever and no chills Gastrointestinal: + abdominal pain and + nausea Physical Exam Constitutional: WD/WN, vitals as above Respiratory: no respiratory distress Cardiovascular: RRR, no murmur, no edema Gastrointestinal (Abdomen): Inspection/Auscultation: abdomen normal to inspection; abdomen not distended Percussion/Palpation: + abdomen tender (epigastric) and abdomen soft Results & Data ([facility]) Vital Signs (Past 12 Hours) Vital Signs Temp Pulse Pulse Resp BP BP Pulse Ox 09/04/21 03:15 36.7 C 71 18 129/71 97 09/04/21 01:20 60 14 121/70 98 09/04/21 01:14 78 14 139/95 95 09/04/21 00:03 66 14 110/78 98 Pulse Ox 09/04/21 03:15 09/04/21 01:20 09/04/21 01:14 97 09/04/21 00:03 PG Care Time/CCT Total # of Minutes Spent Total Time Spent with Patient: Total time spent is greater than 50% in coordination of care (as documented) at patient's floor/unit and/or counseling patient: Coding Level of Care Code 81488 Inpt Consult Level 2 Diagnoses Pseudocyst of pancreas K86.3
[2021-09-04] MEDS: ondansetron HCL 8 MG in DEXTROSE 5% 50 ML IV PRN ×2 (14:06→22:22)
[2021-09-04] MEDS: HYDROmorphone INJ 0.5 MG/0.5 ML SYR IV PRN ×2 (15:53→18:29)
--- NOTE | 2021-09-04 16:54 | Gastrointestinal Consultation ---
Date of Consultation September 04, 2021 Assessment & Plan (1) Pancreatitis: (2) Pancreatic pseudocyst: Complicated pancreatitis by pseudocysts Supervising Physician Co-Signing Physician Notes Underlying likely alcohol pancreatitis Now with concerns for pseudocyst development, per history he endorses his last drank was in 07/07. At the current time, there is no wall around the pseudocysts for urgent drainage, if the time course is true then it has been 8 weeks since his initial pancreatitis episode. There is no overt inflammation in his gallbladder at this time. Agree with IV fluids, prn pain control though advised he should try to wean off the narcotics, bowel regimen, assess response to conservative mgmt for complicated pancreatitis for now. Strict avoidance of ethanol. Fatty liver on imaging likeyl from underlying ethanol use, he does have a hepatitis panel in process. History of Present Illness Reason for Consultation: Abdominal pain - abnl ct Requesting Physician: Dr. Beaulieu Attending Physician: Mary Murphy MD History of Present Illness 36 [facility]. Reports a prior episode of abdominal pain- diagnosed with alcoholic pancreatitis treated at [facility] and reportedly sent home. Per patient today, denies any further sips of ethanol since that admission in 07/07. He went to [facility] earlier this weekend for abd pain- was admitted there for abdominal pain thought to be secondary to pancreatitis and concerns for interval development of a pseudocyst - it appeared he may have been being transferred from [place] to [facility] and he left [facility] and came to the [facility] ER. The ER physician called me Sunday evening after a wbc count returned mildly elevated, no elevation in tb noted or ast/alt, mild elevation in alk phos and he told me the patient was requesting pain medication and likely the patient will be sent home with outpt gi follow-up. The patient thereafter appeared to be admitted presumably for pain control. He is in the ED inpatient area when I examined him- voicing his pain is 5/10, dilaudid helps it. No fevers, chills, chest pain, belly pain, nausea, vomiting, jaundice though had mild nause on admission. Seen by surgery with no urgent plans for cholescystectomy. The patient endorses he last drank in 07/07 prior to his admission at [facility]. He voices no other complaints to me this evening. Allergies Allergy/AdvReac Type Severity Reaction Status Date / Time No Known Allergies Allergy Unverified 09/03/21 19:43 Home Medications Medication Instructions Recorded Confirmed Type amlodipine 10 mg tablet 10 mg PO BID 09/03/21 09/03/21 History pantoprazole 40 mg tablet,delayed 40 mg PO BID 09/03/21 09/03/21 History release Patient History Medical History Alcohol use disorder GERD (gastroesophageal reflux disease) Hypertension Recurrent pancreatitis Social History Smoking Status: Current every day smoker Current Living Situation: Alone Feels Safe at Home: Yes Review of Systems Review of Systems: All systems reviewed & are unremarkable except as noted in HPI & below Physical Exam Physical Exam: Well nourished male in nad Respiratory: Normal respirations, no increased work of breathing, no wheezing noted Gastrointestinal (Abdomen): Soft nt nd Skin: Multiple tatoos on his arms Results & Data ([facility]) Vital Signs (Past 12 Hours) Vital Signs Temp Pulse Resp BP Pulse Ox 09/04/21 15:22 75 18 139/89 97 09/04/21 12:00 68 16 136/74 96 09/04/21 08:00 36.9 C 70 18 140/87 97 Laboratory Results WBC count has normalized Alk phos mildly elevated Normal tb Normal ast/alt Diagnostic Findings CT a/p reviewed - pancreatitis and now presumed interval development of possibly 3 pseudocysts
[2021-09-04] MEDS ORDERED: HYDROmorphone INJ 0.5 MG/0.5 ML SYR IV PRN (20:22)
[2021-09-04] MEDS ORDERED: HYDROmorphone INJ 1 MG/ML SYRINGE IV PRN ×2 (20:22→21:46)
--- NOTE | 2021-09-04 21:45 | Billing Data ---
Date of Service September 04, 2021 Coding Level of Care Code 77918 Initial Inpt Care Lvl 3
[2021-09-05] MEDS ORDERED: Nursing to Pharmacy Communication SCH (01:00)
[2021-09-05] MEDS: HYDROmorphone INJ 0.5 MG/0.5 ML SYR IV PRN ×8 (01:32→23:33)
[2021-09-05] MEDS: LACTATED RINGER'S 1,000 ML IV SCH ×6 (01:33→21:51)
[2021-09-05] MEDS: PIPERACILLIN/TAZOBACTAM 3.375 GM in DEXTROSE 5% 100 ML IV SCH (05:41)
--- NOTE | 2021-09-05 07:47 | Hospitalist Progress Note ---
Date of Service September 05, 2021 Assessment & Plan (1) Necrotizing pancreatitis: Plan: 36 yo M with Hx alcohol use disorder, HTN with recent diagnosis of necrotizing pancreatitis and pancreatic pseudocyst admitted for IV fluids, antibiotics, and pain control. Necrotizing pancreatitis, pancreatic pseudocyst: -Recently admitted to [facility] and left AMA. -Lipase 2532, AST 20, ALT 11, Alk phos 122 -CT abd/pelv with evidence of necrotizing pancreatitis, marked peripancreatic inflammation and fluid, as well as pseudocysts. -US liver showed gallbladder wall thickening and sludge without definite cholelithiasis. -Likely 2/2 history of alcohol abuse and history of pancreatic pseudocyst. -Patient placed on IVF at 250 cc/hr, Zosyn 4.5g q8h, NPO for bowel rest. -General Surgery consulted. -Gallbladder thickening on CT and US likely 2/2 pancreatitis and hepatic steatosis. -No indication for current intervention. -Supportive management at this time recommended. -GI consulted. --> recommend continue NPO and IVF, can d/c abx. in 2wks repeat CT and consider EUS guided drainage of pseudocyst -Dilaudid q3h PRN for pain. Toradol 10mg IV q6hr PRN added, to be used first -Continue IVF, NPO. D/c zosyn continue to trend CBC, CMP Hepatic steatosis, Hx alcohol use disorder: -History of alcohol use disorder, with significant decrease in alcohol use since June per patient history. -No signs of withdrawal on exam at this time; AWSS at risk protocol initiated. -CT abd/pelv with severe hepatic steatosis and labwork showing elevated INR to 1.5. -Vitamin K 10mg x1 ordered -LFTs normal with elevated Alk Phos.--> alk phos downtrending -Hepatitis panel low normal -Daily IV thiamine and folic acid ordered. -Mentating well, no indication to check ammonia level at this time. Hypertension: -Continue amlodipine 10mg BID. -BP elevated in ER; likely that pain is contributory. Returned to normal range with improvement in pain. GERD: -Holding PPI while NPO; famotidine 20mg IV BID for now. Code Status: FULL CODE FEN/GI: NPO, LR at 250cc/hr DVT ppx: SCDs Dispo: Telemetry (2) Pseudocyst of pancreas: (3) History of alcohol abuse: (4) Hepatic steatosis: (5) Hypertension: (6) GERD (gastroesophageal reflux disease): Admission and Anticipated Discharge Date Admission Date: September 03, 2021 Supervising Physician Co-Signing Physician Notes Patient seen and examined, chart reviewed, case discussed with Dr. Larsen and I agree with the assessment and plan as above except as otherwise noted Saeid is a 36-year-old male who presents with recurrent alcohol induced pancreatitis with pseudocyst. Continues to have severe pain improved tolerable with every 3 hours hydromorphone. Breathing unlabored, remains with epigastric pain/tenderness without guarding/rigidity, radial pulse intact with regular rate. CT reviewed, case reviewed with gastroenterology. He has not yet tolerated clear liquids. Continue LR IVF. No indication for antibiotics at this time, no signs of infected necrosis. Reviewed that it is critically important moving forward to remain abstinent from alcohol, patient reports that he had "moved away from this, but not stopped ". Per GI repeat CT scan in 2 weeks to assess pseudocyst and consideration of EUS guided drainage. IR intervention not recommended due to location per GI. Continue analgesia with hydromorphone with mixed subjective and objective measures of analgesia. Subjective 36yo Male with necrotizing pancreatitis, PMH necrotizing pancreatitis, HTN, GERD, alcohol use disorder, hepatic steatosis. Patient seen at bedside, calm pleasant cooperative comfortable. Patient states he tried drinking water overnight but was unable to keep it down, states he had an episode of left shoulder pain overnight that is currently a dull aching pain. Patient understands that labwork is necessary to monitor his condition. Patient understands that we will continue NPO, IVF, and pain control until his status improves and he is able to keep food down, he understands antibiotics are not needed at his current condition. Patient states his last alcoholic drink was back in june. He states he spoke with GI earlier this morning and will have his pancreatic cyst drained in 2 weeks. Review of Systems Review of Systems: Positive epigastric tenderness Negative fever chills Negative headache dizziness Negative chest pain palpitations SOB Negative nausea diarrhea constipation Physical Exam Constitutional: well developed, cooperative and comfortable Respiratory: normal respiratory effort, lungs clear to auscultation Cardiovascular: RRR, no murmur, no edema Heart Sounds: normal S1 and normal S2 Gastrointestinal (Abdomen): Inspection/Auscultation: abdomen normal to inspection and normal bowel sounds Percussion/Palpation: + abdomen tender and + guarding (in epigastric region and LUQ) Skin: no rashes, warm and dry Results & Data Results & Data ([facility]) Vital Signs (Past 12 Hours) Vital Signs Temp Pulse Pulse Resp BP Pulse Ox 09/05/21 07:00 80 09/05/21 04:00 79 09/05/21 03:50 37.4 C 84 20 132/85 93 09/05/21 00:07 37.2 C 69 18 146/87 H 92 Laboratory Results 09/05/21 09/05/21 09/04/21 Range/Units 10:37 10:37 07:42 WBC 9.82 (4.8-10.8) K/uL RBC 4.08 L (4.7-6.1) M/uL Hgb 12.4 L (14.0-18.0) g/dL Hct 37.2 L (42-52) % MCV 91.2 (80-100) fL MCH 30.4 (25-34) pg MCHC 33.3 (32-36) g/dL RDW Std Deviation 53.8 H (36.4-46.3) fL RDW Coeff of Gay 16.0 H (11.5-14.5) % Plt Count 393 (130-400) K/uL MPV 10.1 (7.4-10.4) fL Immature Gran % (Auto) 0.1 % Neut % (Auto) 74.6 % Lymph % (Auto) 15.0 % Laurens % (Auto) 7.5 % Eos % (Auto) 2.6 % Baso % (Auto) 0.2 % Neut # (Auto) 7.32 H (1.4-6.5) K/uL Lymph # (Auto) 1.47 (1.2-3.4) K/uL Laurens # (Auto) 0.74 H (0.11-0.59) K/uL Eos # (Auto) 0.26 (0-0.5) K/uL Baso # (Auto) 0.02 (0-0.2) K/uL Immature Gran # (Auto) 0.01 (0.00-0.02) K/uL Sodium 138 (136-145) mmol/L Potassium 3.4 L (3.5-5.1) mmol/L Chloride 104 (98-107) mmol/L Carbon Dioxide 23 (21-32) mmol/L Anion Gap 11.0 (3-11) BUN 2 L (7-18) mg/dl Creatinine 0.36 L (0.6-1.4) mg/dl Est Cr Clr Drug Dosing 298.5 ml/min Est GFR ( Amer) > 150.0 ml/min Est GFR (Non-Af Amer) > 150.0 ml/min BUN/Creatinine Ratio 4.5 L (10-20) Glucose 94 (70-99) mg/dl Calcium 7.9 L (8.5-10.1) mg/dl Total Bilirubin 0.8 (0.2-1) mg/dl AST 17 (15-37) U/L ALT 9 L (12-78) Alkaline Phosphatase 114 (45-117) U/L Total Protein 5.1 L (6.4-8.2) gm/dl Albumin 1.6 L (3.4-5.0) gm/dl Globulin 3.5 (2.5-4.0) gm/dl Albumin/Globulin Ratio 0.5 L (0.9-2) Hep Bs Antigen Neg (Neg) Hepatitis C Antibody Neg (Neg) Diagnostic Findings Abdomen/Pelvis CT 09/03/21 18:53 CT SCAN OF THE ABDOMEN AND PELVIS WITH IV CONTRAST CLINICAL HISTORY: Generalized abdominal pain. Acute pancreatitis. COMPARISON STUDY: Abdominal CT dated 09/01/2021. TECHNIQUE: Following the IV administration of 94 cc of Optiray 320, CT scan of the abdomen and pelvis is performed from the lung bases to the proximal femora. Images are reviewed in the axial, sagittal, and coronal planes. IV contrast was administered without complication. A dose lowering technique was utilized adhering to the principles of ALARA. CT DOSE: 405.89 mGy.cm FINDINGS: Lung bases: The heart is normal in size and without pericardial effusion. There are small left and trace right pleural effusions with bibasilar consolidation. These have increased in size from previous. There is a 4 mm focus of pleural- based nodularity in the right middle lobe along the minor fissure seen on image #18. 4 mm nodules in the right middle and right lower lobes are seen on images #28 and #38. Liver: The contrast-enhanced liver is enlarged, measuring 22.5 cm in length. The liver demonstrates diffusely diminished attenuation consistent with severe hepatic steatosis. There are foci of geographic fatty sparing. There is no intrahepatic biliary ductal dilatation. The hepatic veins and portal veins are patent. Gallbladder: The gallbladder is filled with hyperdense material. This could represent stones/sludge and/or vicariously excreted contrast. The gallbladder wall appears thickened. No pericholecystic inflammation is seen. Spleen: Normal in size and attenuation. Pancreas: There is marked peripancreatic inflammation and fluid. The pancreatic head and neck appear edematous and enhance normally. The pancreatic body and tail are not well-visualized and likely necrotic. A peripherally enhancing fluid collection is seen in the expected location of the pancreatic body and tail. This measures approximately 4 x 9.5 x 3.5 cm as seen on axial image #34. A loculation extends anteriorly and inferiorly on image #181 measuring approximately 6 x 2.5 cm in axial dimension. An additional loculated fluid collection along the lesser curvature of the stomach is seen on axial image #164 and measures approximately 2.5 x 5 x 3.5 cm. The splenic vein is patent. Adrenal glands: Unremarkable. Kidneys: The contrast enhanced kidneys are normal in size and without hydronephrosis. The kidneys enhance symmetrically. Abdominal vasculature: The abdominal aorta is normal in course and caliber. Bowel: There is no bowel obstruction. The appendix is well-visualized and normal. Inflammatory change of the stomach and duodenum is likely related to adjacent pancreatitis. Peritoneum: No intraperitoneal free air is identified. There is trace upper abdominal ascites, as well as a small volume of ascites in the pelvis. There are fat-containing umbilical and supraumbilical hernias. Lymphadenopathy: Enlarged upper abdominal lymph nodes measure up to 2 cm in short axis and are likely both reactive and related to chronic liver disease. Pelvic viscera: The bladder is mildly distended but otherwise normal in appearance. The prostate and seminal vesicles are normal as visualized. Skeletal structures: No lytic or blastic lesions are seen. There is a chronic/healed left transverse process fracture of L3. IMPRESSION: 1. Findings consistent with necrotizing pancreatitis as detailed above. 2. There is a large, thick walled, and multiloculated fluid collection in the expected location of the pancreatic body and tail which likely presents a pseudocyst. An additional similar-appearing loculated fluid collection is seen along the greater curvature of the stomach. These are similar to 09/01/2021. The sterility of these fluid collections cannot be evaluated by imaging. 3. Small volume of abdominopelvic ascites. This has modestly increased from previous. 4. Hepatomegaly and severe hepatic steatosis. 5. Left larger than right pleural effusions with associated bibasilar consolidation. These have increased from previous. 6. Hyperdense material within the gallbladder could represent stones/sludge and/or vicariously excreted contrast. There is nonspecific gallbladder wall thickening which may be related to adjacent hepatocellular disease. Correlate clinically for evidence of concurrent cholecystitis. 7. Additional findings as above. ACT 112: Negative or not required by law. Electronically signed by: Davidson Milan M.D. 09/03/2021 8:21 PM Liver Ultrasound 09/03/21 23:44 US liver HISTORY: 36 years-old Male pancreatitis, ?gallstones acute pancreatitis COMPARISON: CT abdomen and pelvis 09/03/2021 TECHNIQUE: Multiple real-time sonographic images of the abdominal right upper quadrant were obtained assessing grayscale appearance and color flow FINDINGS: Complex collection in the region of the pancreatic body and tail redemonstrated measuring 8.6 x 4.2 x 4.3 cm the liver measures up to 22 cm in length and demonstrates increased echogenicity without hepatic mass. Trace perihepatic ascites. Marked gallbladder wall thickening measures up to 1.4 cm. There is a considerable amount of gallbladder sludge without shadowing cholelithiasis. Trace pericholecystic fluid. Common bile duct is normal measuring 6 mm. Imaged right kidney is unremarkable without hydronephrosis. IMPRESSION: 1. Gallbladder wall thickening and sludge are noted without definite cholelithiasis. Correlate clinically to exclude acute cholecystitis. 2. Complex peripancreatic fluid collection is better characterized on the CT abdomen and pelvis study from 09/03/2021. 3. No biliary ductal dilation. 4. Hepatomegaly with hepatic steatosis. ACT 112: Negative or not required by law. The above report was generated using voice recognition software. It may contain grammatical, syntax or spelling errors. Electronically signed by: Saeid Gilbert M.D. 09/04/2021 7:41 AM Medications Administered Current Inpatient Medications Amlodipine Besylate (Amlodipine Besylate 5 Mg Tab) 10 mg PO BID LEIGHA Stop: 10/04/21 08:59 Last Admin: 09/05/21 08:17 Dose: 10 mg Documented by: Bisacodyl (Bisacodyl 10 Mg Supp) 10 mg KS HS PRN PRN Reason: Constipation Stop: 10/04/21 01:13 Hydromorphone HCl (Hydromorphone Inj 1 Mg/Ml Syringe) 1 mg IV Q3H PRN PRN Reason: Severe Pain Rating (9,10) Stop: 09/18/21 20:21 Last Admin: 09/04/21 22:20 Dose: 1 mg Documented by: Hydromorphone HCl (Hydromorphone Inj 0.5 Mg/0.5 Ml Syr) 0.5 mg IV Q3H PRN PRN Reason: Moderate Pain (5,6,7,8) Stop: 09/18/21 20:21 Last Admin: 09/05/21 14:35 Dose: 0.5 mg Documented by: Lactated Ringer's (Lr) 1,000 mls @ 250 mls/hr IV .Q4H [facility] Stop: 10/03/21 22:34 Last Admin: 09/05/21 14:04 Dose: 250 mls/hr Documented by: Ondansetron HCl 8 mg/ Dextrose 54 mls @ 216 mls/hr IV Q6H PRN PRN Reason: Nausea & Vomiting Stop: 10/03/21 23:41 Last Infusion: 09/04/21 22:40 Dose: Infused Documented by: Lorazepam (Ativan) 1 mg in 2 mls @ 2 mls/min IV ONE PRN; Protocol PRN Reason: EtoH Withdrawal AWSS 6-10 Stop: 10/04/21 01:13 Thiamine HCl 100 mg/ Syringe 10 mls @ 2 mls/min IV QAM [facility] Stop: 10/04/21 01:13 Last Admin: 09/05/21 08:17 Dose: 2 mls/min Documented by: Folic Acid 1 mg/ Syringe 10 mls @ 5 mls/min IV QAM [facility] Stop: 10/04/21 01:13 Last Admin: 09/05/21 08:17 Dose: 5 mls/min Documented by: Famotidine 20 mg/ Syringe 5 mls @ 2.5 mls/min IV BID [facility] Stop: 10/04/21 08:59 Last Admin: 09/05/21 08:28 Dose: 2.5 mls/min Documented by: Sodium Biphosphate/Sodium Phosphate (Sod Phosphate/Sod Biphosphate Enema 132 Ml Btl) 132 ml KS DAILY PRN PRN Reason: Constipation Stop: 10/04/21 01:13 Resident Activity Tracking Resident Involvement: Resident Care Provided Care Provided: Adult Hospital Medicine
[2021-09-05] MEDS: amLODIPine BESYLATE 5 MG TAB PO SCH ×2 (08:17→20:40)
[2021-09-05] MEDS: THIAMINE HCL 100 MG in SYRINGE 9 ML IV SCH (08:17)
[2021-09-05] MEDS: FOLIC ACID 1 MG in SYRINGE 9.8 ML IV SCH (08:17)
[2021-09-05] MEDS: FAMOTIDINE 20 MG in SYRINGE 3 ML IV SCH ×2 (08:28→20:35)
--- NOTE | 2021-09-05 08:45 | Gastroenterology Progress Note ---
Date of Service September 05, 2021 Assessment & Plan (1) Pancreatic pseudocyst: Plan: 36 year old male admitted w/ alcohol induced pancreatitis w/ pseudocyst Will review imaging with attending Continue NPO status LR 200 mL/Hr Antiemetics PRN Analgesia PRN OOB to chair and OOB to ambulate Remain ETOH free Thank you for allowing us to participate in the care of this patient. Please call with any acute changes, questions or concerns. Please see addendum below with additional recommendation from my supervising physician. Admission and Anticipated Discharge Date Admission Date: September 03, 2021 Supervising Physician Co-Signing Physician Notes I performed a history and physical examination of the patient today, including specifically on physical exam - soft abdomen. I have discussed the patient's management with the advanced practitioner. Please refer to the nurse practitioner's note for the documented findings and plan of care. Patient with alcoholic pancreatitis and a pseudocyst posterior to the stomach, no leukocytosis or fever, overall doing well. Did not tolerate clear liquids yesterday due to pain. Recommend: Continue IV Hydration and pain management. No indication for ABx. Try clear liquids tomorrow. Antiemetics as needed. Plan for repeat CT scan in 2 weeks to assess the pseudocyst, if remains the same size and he is still symptomatic then will arrange EUS guided drainage ( I do not recommend IR intervention given the location and the outcome for endoscopic management of theses collections is better). Subjective Pt was seen and evaluated, chart reviewed. Did trial clear liquids last evening. This caused worsening pain. Returned to NPO status Notes pain is midline, epigastric. No nausea, vomiting No BM since admission Review of Systems Review of Systems: All systems reviewed & are unremarkable except as noted in HPI & below Physical Exam Constitutional: WD/WN, vitals as above Respiratory: normal respiratory effort; no respiratory distress and no labored breathing Cardiovascular: Rate/Rhythm: regular rate Gastrointestinal (Abdomen): Inspection/Auscultation: abdomen normal to inspection; abdomen not distended, no abdominal edema and no significant pannus Percussion/Palpation: + abdomen tender and abdomen soft; no guarding, abdomen not rigid, no abdominal mass and no ascites Skin: no rashes, warm and dry Results & Data ([facility]) Vital Signs (Past 12 Hours) Vital Signs Temp Pulse Pulse Resp BP Pulse Ox 09/05/21 08:00 36.8 C 82 22 151/91 H 93 09/05/21 07:00 80 09/05/21 04:00 79 09/05/21 03:50 37.4 C 84 20 132/85 93 09/05/21 00:07 37.2 C 69 18 146/87 H 92 Laboratory Results 09/04/21 Range/Units 07:42 Total Bilirubin 0.8 (0.2-1) mg/dl Alkaline Phosphatase 122 H (45-117) U/L Total Protein 5.1 L (6.4-8.2) gm/dl Globulin 3.4 (2.5-4.0) gm/dl Albumin/Globulin Ratio 0.5 L (0.9-2)
[2021-09-05 10:27] LABS: Hepatitis B Surf Ag Rflx Conf Neg (Neg)
[2021-09-05 10:50] LABS: Basophils # (auto) 0.02 K/uL (0-0.2); Basophils % (auto) 0.2 %; Eosinophils # (auto) 0.26 K/uL (0-0.5); Eosinophils % (auto) 2.6 %; Hematocrit (blood only) 37.2 % (42-52); Hemoglobin 12.4 g/dL (14.0-18.0); Immature Granulocytes # (auto) 0.01 K/uL (0.00-0.02); Immature Granulocytes % (auto) 0.1 %; Lymphocytes # (auto) 1.47 K/uL (1.2-3.4); Mean Corpuscular Hemoglobin 30.4 pg (25-34); Mean Corpuscular Hgb Conc 33.3 g/dL (32-36); Mean Corpuscular Volume 91.2 fL (80-100); Mean Platelet Volume 10.1 fL (7.4-10.4); Monocytes # (auto) 0.74 K/uL (0.11-0.59); Monocytes % (auto) 7.5 %; Neutrophils # (auto) 7.32 K/uL (1.4-6.5); Neutrophils % (auto) 74.6 %; Platelet Count 393 K/uL (130-400); RDW Standard Deviation 53.8 fL (36.4-46.3); Red Blood Count 4.08 M/uL (4.7-6.1); White Blood Count 9.82 K/uL (4.8-10.8)
[2021-09-05 10:55] LABS: Hepatitis C IgG 13Yrs+Old_Rflx Neg (Neg)
[2021-09-05 11:17] LABS: Alanine Aminotransferase 9 (12-78); Albumin Level 1.6 gm/dl (3.4-5.0); Aspartate Aminotransferase 17 U/L (15-37); BUN Creatinine Ratio 4.5 (10-20); Blood Urea Nitrogen 2 mg/dl (7-18); Calcium 7.9 mg/dl (8.5-10.1); Carbon Dioxide 23 mmol/L (21-32); Chloride 104 mmol/L (98-107); Creatinine Clr Calc Pharmacy 298.5 ml/min; Est GFR (African American) > 150.0 ml/min; Est GFR (Non-African American) > 150.0 ml/min; Glucose 94 mg/dl (70-99); Potassium 3.4 mmol/L (3.5-5.1); Sodium 138 mmol/L (136-145)
[2021-09-05 11:20] LABS: Albumin Globulin Ratio 0.5 (0.9-2); Alkaline Phosphatase 114 U/L (45-117); Bilirubin,Total 0.8 mg/dl (0.2-1); Globulin 3.5 gm/dl (2.5-4.0); Total Protein 5.1 gm/dl (6.4-8.2)
[2021-09-05] MEDS: POTASSIUM CHLORIDE / WTR 10 MEQ/100 ML PLCT IV SCH ×2 (18:14→20:14)
[2021-09-05] MEDS: KETOROLAC TROMETHAMINE 15 MG/ML VIAL IV PRN (21:46)
[2021-09-06] MEDS: LACTATED RINGER'S 1,000 ML IV SCH ×4 (01:54→19:16)
[2021-09-06] MEDS: HYDROmorphone INJ 0.5 MG/0.5 ML SYR IV PRN ×6 (02:34→19:16)
[2021-09-06] MEDS: KETOROLAC TROMETHAMINE 15 MG/ML VIAL IV PRN ×3 (04:07→17:01)
--- NOTE | 2021-09-06 07:40 | Hospitalist Progress Note ---
Date of Service September 06, 2021 Assessment & Plan (1) Necrotizing pancreatitis: Plan: 36 yo M with Hx alcohol use disorder, HTN with recent diagnosis of necrotizing pancreatitis and pancreatic pseudocyst admitted for IV fluids, antibiotics, and pain control. Necrotizing pancreatitis, pancreatic pseudocyst: -Recently admitted to [facility] and left AMA. -Lipase 2532, AST 20, ALT 11, Alk phos 122 -CT abd/pelv with evidence of necrotizing pancreatitis, marked peripancreatic inflammation and fluid, as well as pseudocysts. -US liver showed gallbladder wall thickening and sludge without definite cholelithiasis. -Likely 2/2 history of alcohol abuse and history of pancreatic pseudocyst. -Patient placed on IVF at 250 cc/hr, Zosyn 4.5g q8h, NPO for bowel rest. -General Surgery consulted. -Gallbladder thickening on CT and US likely 2/2 pancreatitis and hepatic steatosis. -No indication for current intervention. -Supportive management at this time recommended. -GI consulted. --> recommend continue NPO and IVF, can d/c abx. in 2wks repeat CT and consider EUS guided drainage of pseudocyst -Dilaudid q3h PRN for pain changed to q4. Toradol 10mg IV q6hr PRN added, to be used first. Ordered PO Percocet q4, to be used before dilaudid -IVF rate decreased to 125 ml/hr, patient attempted clear diet with some pain. continue to trend CBC, BMP Hepatic steatosis, Hx alcohol use disorder: -History of alcohol use disorder, with significant decrease in alcohol use since June per patient history. -No signs of withdrawal on exam at this time; AWSS at risk protocol initiated. -CT abd/pelv with severe hepatic steatosis and labwork showing elevated INR to 1.5. -Vitamin K 10mg x1 ordered -LFTs normal with elevated Alk Phos.--> alk phos downtrending -Hepatitis panel low normal -Daily IV thiamine and folic acid ordered. -Mentating well, no indication to check ammonia level at this time. Hypertension: -Continue amlodipine 10mg BID. -BP elevated in ER; likely that pain is contributory. Returned to normal range with improvement in pain. GERD: -Holding PPI while NPO; famotidine 20mg IV BID for now. added pantoprazole IV 40mg daily Code Status: FULL CODE FEN/GI: clear liquid diet, LR at 125cc/hr DVT ppx: SCDs Dispo: Telemetry (2) Pseudocyst of pancreas: (3) History of alcohol abuse: (4) Hepatic steatosis: (5) Hypertension: (6) GERD (gastroesophageal reflux disease): Admission and Anticipated Discharge Date Admission Date: September 03, 2021 Supervising Physician Co-Signing Physician Notes 36yo Male with necrotizing pancreatitis, PMH necrotizing pancreatitis, HTN, GERD, alcohol use disorder, hepatic steatosis. Patient seen at bedside, calm pleasant cooperative comfortable. Reports his pain is improved from yesterday, continues to require IV pain relief and notes that this lasted for about an hour or 2 but that his pain is improved from yesterday. Tolerating ice chips today, like to try advancement to clears. No left-sided abdominal pain at time of bedside assessment, trace epigastric tenderness. At bedside he is alert, appears comfortable, symmetrical chest rise, abdomen nontender to palpation. Fluids decreased, creatinine normal, if clears continue to be tolerated well will discontinue fluids and convert to p.o. medications. Hydromorphone to oxycodone as needed. Progressing towards discharge. Continue thiamine, again reinforced importance of remaining abstinent from alcohol. Subjective 36yo Male with necrotizing pancreatitis, PMH necrotizing pancreatitis, HTN, GERD, alcohol use disorder, hepatic steatosis. Patient seen at bedside, calm pleasant cooperative comfortable. He states that his abdomen is less tender now, the ketorolac helped manage his pain, he states he will try to space out the dilaudid doses further. Patient states he would like to try a clear diet again, and would eventually like to transition to only oral medication. Review of Systems Review of Systems: Positive Abd pain Negative fever chills Negative headache dizziness Negative chest pain palpitations SOB Negative nausea vomitting diarrhea constipation Physical Exam Constitutional: well developed, cooperative and comfortable Respiratory: normal respiratory effort, lungs clear to auscultation Cardiovascular: RRR, no murmur, no edema Heart Sounds: normal S1 and normal S2 Gastrointestinal (Abdomen): Inspection/Auscultation: abdomen normal to inspection and normal bowel sounds Percussion/Palpation: + abdomen tender (in epigastric region) Skin: no rashes, warm and dry Results & Data Results & Data ([facility]) Vital Signs (Past 12 Hours) Vital Signs Temp Pulse Pulse Resp BP Pulse Ox 09/06/21 07:24 36.9 C 75 16 121/78 92 09/06/21 02:37 36.9 C 70 18 138/89 93 09/06/21 00:00 72 09/05/21 22:20 37.0 C 76 18 147/99 H 94 Laboratory Results 09/06/21 09/06/21 09/04/21 Range/Units 07:32 07:32 07:42 WBC 7.36 (4.8-10.8) K/uL RBC 4.19 L (4.7-6.1) M/uL Hgb 12.8 L (14.0-18.0) g/dL Hct 38.1 L (42-52) % MCV 90.9 (80-100) fL MCH 30.5 (25-34) pg MCHC 33.6 (32-36) g/dL RDW Std Deviation 53.2 H (36.4-46.3) fL RDW Coeff of Gay 15.8 H (11.5-14.5) % Plt Count 347 (130-400) K/uL MPV 10.4 (7.4-10.4) fL Sodium 137 (136-145) mmol/L Potassium 3.7 (3.5-5.1) mmol/L Chloride 105 (98-107) mmol/L Carbon Dioxide 22 (21-32) mmol/L Anion Gap 10.0 (3-11) BUN 1 L (7-18) mg/dl Creatinine 0.32 L (0.6-1.4) mg/dl Est Cr Clr Drug Dosing 335.9 ml/min Est GFR ( Amer) > 150.0 ml/min Est GFR (Non-Af Amer) > 150.0 ml/min BUN/Creatinine Ratio 3.7 L (10-20) Glucose 77 (70-99) mg/dl Calcium 8.4 L (8.5-10.1) mg/dl Total Bilirubin 0.5 (0.2-1) mg/dl AST 34 (15-37) U/L ALT 12 (12-78) Alkaline Phosphatase 116 (45-117) U/L Total Protein 5.5 L (6.4-8.2) gm/dl Albumin 1.7 L (3.4-5.0) gm/dl Globulin 3.8 (2.5-4.0) gm/dl Albumin/Globulin Ratio 0.4 L (0.9-2) Hepatitis A IgM Ab NON-REACTIVE (NON-REACTIVE) Hep B Core IgM Ab NON-REACTIVE (NON-REACTIVE) Diagnostic Findings Abdomen/Pelvis CT 09/03/21 18:53 CT SCAN OF THE ABDOMEN AND PELVIS WITH IV CONTRAST CLINICAL HISTORY: Generalized abdominal pain. Acute pancreatitis. COMPARISON STUDY: Abdominal CT dated 09/01/2021. TECHNIQUE: Following the IV administration of 94 cc of Optiray 320, CT scan of the abdomen and pelvis is performed from the lung bases to the proximal femora. Images are reviewed in the axial, sagittal, and coronal planes. IV contrast was administered without complication. A dose lowering technique was utilized adhering to the principles of ALARA. CT DOSE: 405.89 mGy.cm FINDINGS: Lung bases: The heart is normal in size and without pericardial effusion. There are small left and trace right pleural effusions with bibasilar consolidation. These have increased in size from previous. There is a 4 mm focus of pleural-b ased nodularity in the right middle lobe along the minor fissure seen on image #18. 4 mm nodules in the right middle and right lower lobes are seen on images #28 and #38. Liver: The contrast-enhanced liver is enlarged, measuring 22.5 cm in length. The liver demonstrates diffusely diminished attenuation consistent with severe hepatic steatosis. There are foci of geographic fatty sparing. There is no intrahepatic biliary ductal dilatation. The hepatic veins and portal veins are patent. Gallbladder: The gallbladder is filled with hyperdense material. This could represent stones/sludge and/or vicariously excreted contrast. The gallbladder wall appears thickened. No pericholecystic inflammation is seen. Spleen: Normal in size and attenuation. Pancreas: There is marked peripancreatic inflammation and fluid. The pancreatic head and neck appear edematous and enhance normally. The pancreatic body and tail are not well-visualized and likely necrotic. A peripherally enhancing fluid collection is seen in the expected location of the pancreatic body and tail. This measures approximately 4 x 9.5 x 3.5 cm as seen on axial image #34. A loculation extends anteriorly and inferiorly on image #181 measuring approximately 6 x 2.5 cm in axial dimension. An additional loculated fluid collection along the lesser curvature of the stomach is seen on axial image #164 and measures approximately 2.5 x 5 x 3.5 cm. The splenic vein is patent. Adrenal glands: Unremarkable. Kidneys: The contrast enhanced kidneys are normal in size and without hydronephrosis. The kidneys enhance symmetrically. Abdominal vasculature: The abdominal aorta is normal in course and caliber. Bowel: There is no bowel obstruction. The appendix is well-visualized and normal. Inflammatory change of the stomach and duodenum is likely related to adjacent pancreatitis. Peritoneum: No intraperitoneal free air is identified. There is trace upper abdominal ascites, as well as a small volume of ascites in the pelvis. There are fat-containing umbilical and supraumbilical hernias. Lymphadenopathy: Enlarged upper abdominal lymph nodes measure up to 2 cm in short axis and are likely both reactive and related to chronic liver disease. Pelvic viscera: The bladder is mildly distended but otherwise normal in appearance. The prostate and seminal vesicles are normal as visualized. Skeletal structures: No lytic or blastic lesions are seen. There is a chronic/healed left transverse process fracture of L3. IMPRESSION: 1. Findings consistent with necrotizing pancreatitis as detailed above. 2. There is a large, thick walled, and multiloculated fluid collection in the expected location of the pancreatic body and tail which likely presents a pseudocyst. An additional similar-appearing loculated fluid collection is seen along the greater curvature of the stomach. These are similar to 09/01/2021. The sterility of these fluid collections cannot be evaluated by imaging. 3. Small volume of abdominopelvic ascites. This has modestly increased from previous. 4. Hepatomegaly and severe hepatic steatosis. 5. Left larger than right pleural effusions with associated bibasilar consolidation. These have increased from previous. 6. Hyperdense material within the gallbladder could represent stones/sludge and/or vicariously excreted contrast. There is nonspecific gallbladder wall thickening which may be related to adjacent hepatocellular disease. Correlate clinically for evidence of concurrent cholecystitis. 7. Additional findings as above. ACT 112: Negative or not required by law. Electronically signed by: Davidson Milan M.D. 09/03/2021 8:21 PM Liver Ultrasound 09/03/21 23:44 US liver HISTORY: 36 years-old Male pancreatitis, ?gallstones acute pancreatitis COMPARISON: CT abdomen and pelvis 09/03/2021 TECHNIQUE: Multiple real-time sonographic images of the abdominal right upper quadrant were obtained assessing grayscale appearance and color flow FINDINGS: Complex collection in the region of the pancreatic body and tail redemonstrated measuring 8.6 x 4.2 x 4.3 cm the liver measures up to 22 cm in length and demonstrates increased echogenicity without hepatic mass. Trace perihepatic ascites. Marked gallbladder wall thickening measures up to 1.4 cm. There is a considerable amount of gallbladder sludge without shadowing cholelithiasis. Trace pericholecystic fluid. Common bile duct is normal measuring 6 mm. Imaged right kidney is unremarkable without hydronephrosis. IMPRESSION: 1. Gallbladder wall thickening and sludge are noted without definite cholelithiasis. Correlate clinically to exclude acute cholecystitis. 2. Complex peripancreatic fluid collection is better characterized on the CT abdomen and pelvis study from 09/03/2021. 3. No biliary ductal dilation. 4. Hepatomegaly with hepatic steatosis. ACT 112: Negative or not required by law. The above report was generated using voice recognition software. It may contain grammatical, syntax or spelling errors. Electronically signed by: Saeid Gilbert M.D. 09/04/2021 7:41 AM Medications Administered Current Inpatient Medications Amlodipine Besylate (Amlodipine Besylate 5 Mg Tab) 10 mg PO BID [facility] Stop: 10/04/21 08:59 Last Admin: 09/06/21 09:27 Dose: 10 mg Documented by: Bisacodyl (Bisacodyl 10 Mg Supp) 10 mg NC HS PRN PRN Reason: Constipation Stop: 10/04/21 01:13 Hydromorphone HCl (Hydromorphone Inj 1 Mg/Ml Syringe) 1 mg IV Q4 PRN PRN Reason: Severe Pain Rating (9,10) Stop: 09/18/21 21:45 Hydromorphone HCl (Hydromorphone Inj 0.5 Mg/0.5 Ml Syr) 0.5 mg IV Q4 PRN PRN Reason: Moderate Pain (5,6,7,8) Stop: 09/18/21 21:45 Lactated Ringer's (Lr) 1,000 mls @ 125 mls/hr IV .Q8H [facility] Stop: 10/03/21 22:34 Last Admin: 09/06/21 10:17 Dose: 125 mls/hr Documented by: Ondansetron HCl 8 mg/ Dextrose 54 mls @ 216 mls/hr IV Q6H PRN PRN Reason: Nausea & Vomiting Stop: 10/03/21 23:41 Last Infusion: 09/04/21 22:40 Dose: Infused Documented by: Lorazepam (Ativan) 1 mg in 2 mls @ 2 mls/min IV ONE PRN; Protocol PRN Reason: EtoH Withdrawal AWSS 6-10 Stop: 10/04/21 01:13 Thiamine HCl 100 mg/ Syringe 10 mls @ 2 mls/min IV QAM [facility] Stop: 10/04/21 01:13 Last Admin: 09/06/21 09:26 Dose: 2 mls/min Documented by: Folic Acid 1 mg/ Syringe 10 mls @ 5 mls/min IV QAM [facility] Stop: 10/04/21 01:13 Last Admin: 09/06/21 09:26 Dose: 5 mls/min Documented by: Famotidine 20 mg/ Syringe 5 mls @ 2.5 mls/min IV BID [facility] Stop: 10/04/21 08:59 Last Admin: 09/06/21 09:25 Dose: 2.5 mls/min Documented by: Pantoprazole Sodium 40 mg/ (Syringe) 10 mls @ 5 mls/min IV DAILY@1100 [facility] Stop: 10/06/21 14:29 Last Admin: 09/06/21 14:53 Dose: 5 mls/min Documented by: Ketorolac Tromethamine (Ketorolac Tromethamine 15 Mg/Ml Vial) 10 mg IV Q6H PRN PRN Reason: pain, use first Stop: 09/10/21 17:14 Last Admin: 09/06/21 10:14 Dose: 10 mg Documented by: Oxycodone/Acetaminophen (Oxycodone/Acetaminophen 5mg/325mg Tab) 1 tab PO Q4H PRN PRN Reason: MODERATE Pain (4,5,6) & Pre PT Stop: 09/20/21 16:32 Oxycodone/Acetaminophen (Oxycodone/Acetaminophen 5mg/325mg Tab) 2 tab PO Q4H PRN PRN Reason: SEVERE Pain (7,8,9,10) Stop: 09/20/21 16:32 Sodium Biphosphate/Sodium Phosphate (Sod Phosphate/Sod Biphosphate Enema 132 Ml Btl) 132 ml NC DAILY PRN PRN Reason: Constipation Stop: 10/04/21 01:13 Resident Activity Tracking Resident Involvement: Resident Care Provided Care Provided: Adult Hospital Medicine
[2021-09-06 07:51] LABS: Hematocrit (blood only) 38.1 % (42-52); Hemoglobin 12.8 g/dL (14.0-18.0); Mean Corpuscular Hemoglobin 30.5 pg (25-34); Mean Corpuscular Hgb Conc 33.6 g/dL (32-36); Mean Corpuscular Volume 90.9 fL (80-100); Mean Platelet Volume 10.4 fL (7.4-10.4); Platelet Count 347 K/uL (130-400); RDW Coefficient of Variation 15.8 % (11.5-14.5); RDW Standard Deviation 53.2 fL (36.4-46.3); Red Blood Count 4.19 M/uL (4.7-6.1); White Blood Count 7.36 K/uL (4.8-10.8)
--- NOTE | 2021-09-06 08:53 | Gastroenterology Progress Note ---
Date of Service September 06, 2021 Assessment & Plan (1) Pancreatic pseudocyst: Plan: 36 year old male admitted w/ alcohol induced pancreatitis w/ pseudocyst, improving, ready to trial clear liquid diet this AM Trial of clear liquids, advised small volume portions If tolerating liquids can d/c fluids Once tolerating clears, would switch to PO analgesia Pending tolerance consider advancement to low fat regular food Antiemetics PRN OOB to chair and OOB to ambulate Remain ETOH free Thank you for allowing us to participate in the care of this patient. Please call with any acute changes, questions or concerns. Please see addendum below with additional recommendation from my supervising physician. Admission and Anticipated Discharge Date Admission Date: September 03, 2021 Supervising Physician Co-Signing Physician Notes I have discussed the patient's management with the advanced practitioner. Please refer to the nurse practitioner's note for the documented findings and plan of care. Diet as tolerated. Follow up as OP with GI. Subjective Pt was seen and evaluated, chart reviewed. AM labs still pending. He is feeling better. Pain is present but less severe Less bloating, queasy, fullness. No nausea, vomiting. Want to trial clear liquids again. Passing gas, moving bowels yesterday. Has been OOB to chair and walking around his room but not the halls Review of Systems Review of Systems: All systems reviewed & are unremarkable except as noted in HPI & below Physical Exam Constitutional: WD/WN, vitals as above Neck: trachea midline; no tracheal deviation Respiratory: normal respiratory effort; no respiratory distress Cardiovascular: Rate/Rhythm: regular rate and regular rhythm Gastrointestinal (Abdomen): Inspection/Auscultation: abdomen normal to inspection and normal bowel sounds; abdomen not distended Percussion/Palpation: + abdomen tender (mild, improved from exam yesterday) and abdomen soft; no guarding, abdomen not rigid, no abdominal mass and no ascites Skin: no rashes, warm and dry Results & Data ([facility]) Vital Signs (Past 12 Hours) Vital Signs Temp Pulse Pulse Resp BP Pulse Ox 09/06/21 07:41 66 09/06/21 07:24 36.9 C 75 16 121/78 92 09/06/21 02:37 36.9 C 70 18 138/89 93 09/06/21 00:00 72 09/05/21 22:20 37.0 C 76 18 147/99 H 94
[2021-09-06] MEDS: FAMOTIDINE 20 MG in SYRINGE 3 ML IV SCH ×2 (09:25→20:36)
[2021-09-06] MEDS: THIAMINE HCL 100 MG in SYRINGE 9 ML IV SCH (09:26)
[2021-09-06] MEDS: FOLIC ACID 1 MG in SYRINGE 9.8 ML IV SCH (09:26)
[2021-09-06] MEDS: amLODIPine BESYLATE 5 MG TAB PO SCH ×2 (09:27→20:19)
[2021-09-06 09:36] LABS: Alanine Aminotransferase 12 (12-78); Albumin Level 1.7 gm/dl (3.4-5.0); Aspartate Aminotransferase 34 U/L (15-37); BUN Creatinine Ratio 3.7 (10-20); Blood Urea Nitrogen 1 mg/dl (7-18); Calcium 8.4 mg/dl (8.5-10.1); Carbon Dioxide 22 mmol/L (21-32); Chloride 105 mmol/L (98-107); Creatinine Clr Calc Pharmacy 335.9 ml/min; Est GFR (African American) > 150.0 ml/min; Est GFR (Non-African American) > 150.0 ml/min; Glucose 77 mg/dl (70-99); Potassium 3.7 mmol/L (3.5-5.1); Sodium 137 mmol/L (136-145)
[2021-09-06 09:38] LABS: Albumin Globulin Ratio 0.4 (0.9-2); Alkaline Phosphatase 116 U/L (45-117); Bilirubin,Total 0.5 mg/dl (0.2-1); Globulin 3.8 gm/dl (2.5-4.0); Total Protein 5.5 gm/dl (6.4-8.2)
[2021-09-06] MEDS: PANTOprazole 40 MG in SYRINGE 0 ML IV SCH (14:53)
[2021-09-06 15:31] LABS: Hepatitis A Antibody IgM NON-REACTIVE (NON-REACTIVE); Hepatitis B Core Antibody IgM NON-REACTIVE (NON-REACTIVE)
[2021-09-06] MEDS ORDERED: oxyCODONE/ACETAMINOPHEN 5mg/325mg TAB PO PRN (16:33)
[2021-09-06] MEDS ORDERED: HYDROmorphone INJ 1 MG/ML SYRINGE IV PRN (16:36)
--- NOTE | 2021-09-06 16:43 | Billing Data ---
Date of Service September 05, 2021 Coding Level of Care Code 73226 Subseq Hosp Care Lvl 3
--- NOTE | 2021-09-06 16:44 | Billing Data ---
Date of Service September 06, 2021 Coding Level of Care Code 88557 Subseq Hosp Care Lvl 2
[2021-09-06] MEDS: oxyCODONE/ACETAMINOPHEN 5mg/325mg TAB PO PRN (21:04)
[2021-09-07] MEDS: HYDROmorphone INJ 0.5 MG/0.5 ML SYR IV PRN ×2 (00:01→04:17)
[2021-09-07] MEDS: LACTATED RINGER'S 1,000 ML IV SCH ×2 (02:24→10:39)
[2021-09-07] MEDS: oxyCODONE/ACETAMINOPHEN 5mg/325mg TAB PO PRN ×2 (07:25→12:35)
[2021-09-07] MEDS: FOLIC ACID 1 MG in SYRINGE 9.8 ML IV SCH (07:26)
[2021-09-07] MEDS: THIAMINE HCL 100 MG in SYRINGE 9 ML IV SCH (07:26)
[2021-09-07] MEDS: FAMOTIDINE 20 MG in SYRINGE 3 ML IV SCH (07:26)
--- NOTE | 2021-09-07 07:41 | Hospitalist Progress Note ---
Date of Service September 07, 2021 Assessment & Plan (1) Necrotizing pancreatitis: Plan: 36 yo M with Hx alcohol use disorder, HTN with recent diagnosis of necrotizing pancreatitis and pancreatic pseudocyst admitted for IV fluids, antibiotics, and pain control. Necrotizing pancreatitis, pancreatic pseudocyst: -Recently admitted to [facility] and left AMA. -Lipase 2532, AST 20, ALT 11, Alk phos 122 -CT abd/pelv with evidence of necrotizing pancreatitis, marked peripancreatic inflammation and fluid, as well as pseudocysts. -US liver showed gallbladder wall thickening and sludge without definite cholelithiasis. -Likely 2/2 history of alcohol abuse and history of pancreatic pseudocyst. -Patient placed on IVF at 250 cc/hr, Zosyn 4.5g q8h, NPO for bowel rest. -General Surgery consulted. -Gallbladder thickening on CT and US likely 2/2 pancreatitis and hepatic steatosis. -No indication for current intervention. -Supportive management at this time recommended. -GI consulted. --> recommend continue NPO and IVF, can d/c abx. in 2wks repeat CT and consider EUS guided drainage of pseudocyst -Dilaudid q3h PRN for pain changed to q4. Toradol 10mg IV q6hr PRN added, to be used first. Ordered PO Percocet q4, to be used before dilaudid -IVF rate decreased to 125 ml/hr, patient attempted clear diet with some pain. continue to trend CBC, BMP Hepatic steatosis, Hx alcohol use disorder: -History of alcohol use disorder, with significant decrease in alcohol use since June per patient history. -No signs of withdrawal on exam at this time; AWSS at risk protocol initiated. -CT abd/pelv with severe hepatic steatosis and labwork showing elevated INR to 1.5. -Vitamin K 10mg x1 ordered -LFTs normal with elevated Alk Phos.--> alk phos downtrending -Hepatitis panel low normal -Daily IV thiamine and folic acid ordered. -Mentating well, no indication to check ammonia level at this time. Hypertension: -Continue amlodipine 10mg BID. -BP elevated in ER; likely that pain is contributory. Returned to normal range with improvement in pain. GERD: -Holding PPI while NPO; famotidine 20mg IV BID for now. added pantoprazole IV 40mg daily Code Status: FULL CODE FEN/GI: clear liquid diet, LR at 125cc/hr DVT ppx: SCDs Dispo: Telemetry (2) Pseudocyst of pancreas: (3) History of alcohol abuse: (4) Hepatic steatosis: (5) Hypertension: (6) GERD (gastroesophageal reflux disease): Admission and Anticipated Discharge Date Admission Date: September 03, 2021 Results & Data Results & Data ([facility]) Vital Signs (Past 12 Hours) Vital Signs Temp Pulse Pulse Resp BP Pulse Ox 09/07/21 07:24 36.7 C 56 L 18 131/86 92 09/07/21 03:17 36.9 C 71 18 131/84 93 09/06/21 23:26 68 09/06/21 22:09 36.8 C 65 18 131/74 93
[2021-09-07] MEDS: amLODIPine BESYLATE 5 MG TAB PO SCH (08:10)
[2021-09-07] MEDS ORDERED: HYDROmorphone INJ 0.5 MG/0.5 ML SYR IV PRN (08:45)
[2021-09-07] MEDS ORDERED: HYDROmorphone INJ 1 MG/ML SYRINGE IV PRN (08:45)
[2021-09-07 08:46] LABS: Hematocrit (blood only) 37.6 % (42-52); Hemoglobin 12.6 g/dL (14.0-18.0); Mean Corpuscular Hemoglobin 30.7 pg (25-34); Mean Corpuscular Hgb Conc 33.5 g/dL (32-36); Mean Corpuscular Volume 91.5 fL (80-100); Mean Platelet Volume 10.7 fL (7.4-10.4); Platelet Count 426 K/uL (130-400); RDW Coefficient of Variation 16.1 % (11.5-14.5); Red Blood Count 4.11 M/uL (4.7-6.1); White Blood Count 6.61 K/uL (4.8-10.8)
[2021-09-07 09:07] LABS: Blood Urea Nitrogen < 1 mg/dl (7-18); Calcium 8.2 mg/dl (8.5-10.1); Carbon Dioxide 24 mmol/L (21-32); Chloride 106 mmol/L (98-107); Creatinine Clr Calc Pharmacy 313.1 ml/min; Est GFR (African American) > 150.0 ml/min; Est GFR (Non-African American) > 150.0 ml/min; Glucose 109 mg/dl (70-99); Potassium 3.3 mmol/L (3.5-5.1); Sodium 138 mmol/L (136-145)
[2021-09-07] MEDS ORDERED: POTASSIUM CHLORIDE CRTAB 20 MEQ TABCR PO STA (09:32)
[2021-09-07] MEDS: PANTOprazole 40 MG in SYRINGE 0 ML IV SCH (10:39)
--- NOTE | 2021-09-07 16:19 | Discharge Summary ---
Date of Service September 07, 2021 Admission HPI Per Admitting Provider 36 yo M Hx alcohol use disorder, hypertension, GERD, recent diagnosis of pancreatitis June 2021 presents for worsening abdominal pain. Per patient, he left AMA from [facility] earlier today (was admitted for pancreatitis and pancreatic pseudocyst) due to being told it would be 10-14 days for him to be transferred to tertiary care facility for drainage. When his symptoms worsened at home he came to [facility]. In ER patient had CTAP with severe hepatic steatosis and necrosis and pseudocyst of the pancreas. WBC count elevated to 10.85, LFTs in normal range with Alk Phos of 162 and lipase of 2532. He was given IV Cipro and PO Flagyl and due to symptoms and significant fluid collection with pancreatic necrosis concern hospitalist service was consulted for admission. He reports improvement in his pain and nausea with Dilaudid and Zofran provided by ER. He denies chest pain, SOB. He endorses constipation for several days. He admits that he had been drinking daily prior to his first pancreatitis diagnosis in June, but reports significant decrease in alcohol consumptions since that time and "can count the amount of beers he has had on one hand". He denies IV drug use. He endorses having taken a few doses of Tylenol at home for belly pain before coming to ER. Admission Exam Per Admitting Provider Constitutional: WD/WN, vitals as above Eyes: PERRL, conjunctivae normal, anicteric sclerae ENMT: external ear and nose normal, oropharynx normal Neck: normal visual inspection Respiratory: normal respiratory effort, lungs clear to auscultation Cardiovascular: RRR, no murmur, no edema Gastrointestinal (Abdomen): normal bowel sounds. Abdomen soft, tender (worst in epigastric and LUQ regions but mild diffuse), no rebound or guarding Musculoskeletal: no cyanosis or clubbing, extremities motor strength 5/5 Skin: no rashes, warm and dry Neurologic: AAOx3, normal speech. Normal visual acuity bilaterally. Sensation grossly intact. No tremor. Psychiatric: A+Ox3, euthymic affect Principal Diagnosis Necrotizing Pancreatitis with Pancreatic Pseudocyst Discharge Exam Constitutional well developed, cooperative and comfortable Respiratory normal respiratory effort, lungs clear to auscultation Cardiovascular RRR, no murmur, no edema Heart Sounds: normal S1 and normal S2 Gastrointestinal (Abdomen) Inspection/Auscultation: abdomen normal to inspection and normal bowel sounds Skin no rashes, warm and dry Discharge Data Allergies Allergy/AdvReac Type Severity Reaction Status Date / Time No Known Allergies Allergy Unverified 09/03/21 19:43 Consultations 09/03/21 21:53 ED Decision to Admit Stat 09/04/21 00:16 Consult General Surgery Routine 09/04/21 00:24 Consult Gastroenterology Routine Ordered Studies 09/03/21 18:53 CT abd pelvis IV con only Stat 09/03/21 23:44 US RUQ [US liver] Urgent Hospital Course (1) Necrotizing pancreatitis: 36 yo M with Hx alcohol use disorder, HTN with recent diagnosis of necrotizing pancreatitis and pancreatic pseudocyst admitted for IV fluids, antibiotics, and pain control. Necrotizing pancreatitis, pancreatic pseudocyst: Recently admitted to [facility] and left AMA. Lipase 2532, AST 20, ALT 11, Alk phos 122. CT abd/pelv with evidence of necrotizing pancreatitis, marked peripancreatic inflammation and fluid, as well as pseudocysts. US liver showed gallbladder wall thickening and sludge without definite cholelithiasis. Likely 2/2 history of alcohol abuse and history of pancreatic pseudocyst. Patient placed on IVF, Zosyn, NPO for bowel rest. General Surgery consulted:Gallbladder thickening on CT and US likely 2/2 pancreatitis and hepatic steatosis, No indication for current intervention, Supportive management at this time recommended. GI consulted: recommend continue NPO and IVF, d/c abx. in 2wks repeat CT and consider EUS guided drainage of pseudocyst. Patient had pain control with dilaudid, toradol, percocet. By 09/07 patient tolerated clear diet, full diet, and regular diet. Patient discharged with percocet x5 days for breakthrough pain control. He is to follow up with GI in 2 weeks. Hepatic steatosis, Hx alcohol use disorder: History of alcohol use disorder, with significant decrease in alcohol use since June per patient history. No signs of withdrawal on exam at this time; AWSS at risk protocol initiated. CT abd/pelv with severe hepatic steatosis and labwork showing elevated INR to 1.5. LFTs normal with elevated Alk Phos. later downtrending.Hepatitis panel low normal. Daily IV thiamine and folic acid ordered. Mentating well, no indication to check ammonia level. Hypertension: Continue amlodipine GERD: Recieved famotidine, pantoprazole. (2) Pseudocyst of pancreas: (3) History of alcohol abuse: (4) Hepatic steatosis: (5) Hypertension: (6) GERD (gastroesophageal reflux disease): Total Time Total Time Spent Total Time Spent (In Minutes): see attending attestation Discharge Plan Discharge Items Patient Disposition: Home - Self-Care Reason For Visit: NECROTIZING PANCREATITIS, PANCREATIC PSEUDOCYST Discharge Diagnosis: Necrotizing Pancreatitis with Pancreatic Pseudocyst Condition on Discharge: Good Activity: Resume your previous activity Non-emergency contact: Primary Care Provider and Industrial Design Engineer Call non-emergency contact if: you have any medication questions, your symptoms worsen, your pain is worsening and you have a fever Follow-up/Referrals: Yevgeniy Aguilar MD [Hospitalist] - (please schedule in [address] pancreas and possible EUS guided drainage.) PCP,RICARDO [Primary Care Provider] - Diet: Regular Addtl Attending Provider Instructions: You were admitted to the hospital for Necrotizing Pancreatitis. You were treated with IV fluids and pain control. We have been slowly advancing your diet from liquids to solids. At home, please stay hydrated and avoid all alcohol use. You were provided with pain medication as well. Please take this if needed, though if pain is tolerable would recommend holding off on taking the Percocet. A discharge summary will be sent to your primary care physician to ensure continuity of care. Please bring this discharge summary with you to your next office appointment so that your provider can review it at that time. Follow-up appointments: Make a follow-up appointment with your PCP within the next week. It is very important that you follow up with them shortly after discharge from the hospital. We have requested a follow-up appointment with your drafting detailer within one week of discharge. Please call their office if you do not hear from them. Keep all your follow-up appointments as already scheduled. If you cannot make an appointment, notify your provider. Medications: Your medication list has been reviewed and reconciled upon discharge to ensure accuracy and continuity of care. An updated list of all your medications is included with your hospital discharge paperwork. Please review this list closely, and make note of any changes. * We sent a new medication called Percocet to your pharmacy. Take Take 1 tablet every 6 hours as needed for pain. CONTACT YOUR PRIMARY CARE PROVIDER if you experience any of the following: Fever, chills, shortness of breath Worsening abdominal pain, intractable vomiting Difficulty following your treatment plan, or difficulty taking medications CALL 911 OR GO TO THE EMERGENCY DEPARTMENT if you experience any of the following: Sudden, severe abdominal pain or nausea/vomiting Severe chest pain, or chest pain that radiates (moves) to your jaw or arm Sudden, severe shortness of breath or difficulty breathing Thank you for allowing us to participate in your care. Pending Studies at Discharge: No Stand-Alone Forms: My [facility], Smoking Cessation Medications and DC Order Prescriptions: New oxycodone-acetaminophen [Percocet] 5-325 mg Tablet 1 tab PO Q6H PRN (Reason: pain) Qty: 20 RF: 0 Continued amlodipine 10 mg tablet 10 mg PO DAILY RF: 0 pantoprazole 40 mg tablet,delayed release (DR/EC) 40 mg PO BID RF: 0 Discharge Orders: Discharge Order (Routine); Ordered 09/07/21 Ordered By: Omari Soto/Other Patient Handouts: Alcoholism: Getting Help Admission Data Admit Date/Time: 09/03/21 22:35 Attending Provider: Chava Gray Admit Provider: Germaine Gomez Primary Care Provider: PCP,NO Other Providers: Noe Ingram ; Geovanna Paez ; Ad Bbo Other Interventions: Discharge Summary Assessment (RN) Last Done: 09/07/21 14:34 Supervising Physician Co-Signing Physician Notes I have discussed and reviewed the case with Dr. Larsen and agree with her assessment, findings, and plan except as otherwise noted. 36 yo M with Hx alcohol use disorder, HTN with recent diagnosis of necrotizing pancreatitis and pancreatic pseudocyst admitted for IV fluids, antibiotics, and pain control. Necrotizing pancreatitis, pancreatic pseudocyst: Saeid was admitted for necrotizing pancreatitis 2/2 alcohol use, and had recently been admitted to [facility] where he had left AMA. Lipase was elevated on admission. CT with evidence of necrotizing pancreatitis and peripancreatic inflammation and fluid with pseudocysts as noted above, no evidence of infection. While sterility cannot be guaranteed on imaging he did not show any clinical signs of infection, did not have leukocytosis, and remained well. Case was reviewed with GI and antibiotics were not recommended. He was recommended follow-up for repeat CT and potential EUS guided drainage of pseudocyst in approximately 2 weeks with GI. Gallbladder was assessed, was felt to have some thickening secondary to pancreatitis but not consistent with choledocholithiasis and operative intervention was not recommended at time of admission by general surgery consultation. Patient progressed quickly, and diet was advanced through full with minimal pain. Patient did have some low-grade persistent pain consistent with severe necrotizing pancreatitis, but was rapidly improving. Risk/benefits of ongoing hospital evaluation and down titration of pain control was discussed with patient, he strongly preferred discharge with close follow-up. Due to the extent of his necrotizing pancreatitis and low-grade pain, which was not exacerbated by meals, a short course of breakthrough pain control with o xycodone/acetaminophen 1 tab every 6 hours for breakthrough pain was prescribed. Strict return precautions including worsening pain, meal intolerance, fevers, chills, or any other new or worsening symptoms were discussed and patient was agreeable to these. Strict avoidance of alcohol was discussed, patient was agreeable to this. Discharge exam: Symmetrical chest rise, breathing unlabored, lungs clear to auscultation. Heart regular rate and rhythm. Abdomen soft, nontender to palpation without rebound or guarding. Distal extremities with intact sensation to soft touch without asymmetry, warm and dry. Total time spent preparing discharge day of discharge 35 minutes including direct patient care, review of labs and images, coordination of care, documentation and review of case with resident team. Resident Activity Tracking Resident Involvement: Resident Care Provided Care Provided: Adult [facility]
--- NOTE | 2021-09-07 18:05 | Billing Data ---
Date of Service September 07, 2021 Coding Level of Care Code D/C DAY MANAGEMENT >30 MINS
== END 2021-09-07 16:42 | disposition home or self-care (01) | DRG 439 ==
LOC: ED 18:34 → EDINP 22:35 → SUATTDRO 22:35 → 2N 09-04 00:03

== ENCOUNTER 2021-10-17 22:00 | Inpatient (IN) ==
[2021-10-17] MEDS ORDERED: SODIUM CHLORIDE 0.9% 1000ML 1,000 ML IV ONE (22:12)
[2021-10-17] MEDS ORDERED: ONDANSETRON INJ 2 MG/ML 2 ML VIAL IV STA (22:12)
[2021-10-17] MEDS ORDERED: MoRPHine SULFATE 4 MG/ML 1 ML CARP\\VIAL IV STA (22:12)
[2021-10-17 23:28] LABS: Basophils # (auto) 0.02 K/uL (0-0.2); Basophils % (auto) 0.2 %; Eosinophils # (auto) 0.24 K/uL (0-0.5); Eosinophils % (auto) 1.8 %; Hematocrit (blood only) 41.6 % (42-52); Hemoglobin 14.4 g/dL (14.0-18.0); Immature Granulocytes # (auto) 0.03 K/uL (0.00-0.02); Immature Granulocytes % (auto) 0.2 %; Lymphocytes # (auto) 1.01 K/uL (1.2-3.4); Lymphocytes % (auto) 7.7 %; Mean Corpuscular Hemoglobin 30.3 pg (25-34); Mean Corpuscular Hgb Conc 34.6 g/dL (32-36); Mean Corpuscular Volume 87.4 fL (80-100); Mean Platelet Volume 11.1 fL (7.4-10.4); Monocytes % (auto) 5.3 %; Neutrophils # (auto) 11.15 K/uL (1.4-6.5); Neutrophils % (auto) 84.8 %; Platelet Count 355 K/uL (130-400); RDW Coefficient of Variation 14.9 % (11.5-14.5); RDW Standard Deviation 48.3 fL (36.4-46.3); Red Blood Count 4.76 M/uL (4.7-6.1); White Blood Count 13.15 K/uL (4.8-10.8)
[2021-10-17 23:46] LABS: Alanine Aminotransferase 8 U/L (7-52); Albumin Level 3.6 gm/dl (3.4-5.0); Alkaline Phosphatase 79 U/L (34-104); Anion Gap 14 (3-11); Aspartate Aminotransferase 13 U/L (13-39); Bilirubin Direct 0.1 mg/dl (0-0.2); Bilirubin,Total 0.5 mg/dl (0.2-1.0); Blood Urea Nitrogen 11 mg/dl (6-23); Calcium 9.1 mg/dl (8.5-10.1); Carbon Dioxide 25 mmol/L (21-32); Chloride 98 mmol/L (98-107); Creatinine Clr Calc Pharmacy 239.6 ml/min; Est GFR (African American) > 150.0 ml/min; Glucose 120 mg/dl (70-99(Fasting)); Lipase 255 U/L (11-82); Potassium 3.7 mmol/L (3.5-5.1); Sodium 137 mmol/L (136-145); Total Protein 7.1 gm/dl (6.0-8.3)
[2021-10-17] MEDS ORDERED: HYDROmorphone INJ 1 MG/ML SYRINGE IV STA (23:48)
[2021-10-18] MEDS ORDERED: OPTIRAY 320 100ml IV ONE (00:08)
--- NOTE | 2021-10-18 00:10 | Emergency Department Note ---
History of Present Illness General Chief Complaint: Abdominal Pain Stated Complaint: ABD PAIN, PANCREASE, BLOOD CLOT R SIDE Time Seen by Provider: 10/17/21 22:10 History of Present Illness Provider Complaint: abdominal pain Onset (ago): 2 day(s) Pain Consistency: constant Location: epigastric Severity: severe Maximum Pain Intensity: 9 Current Pain Intensity: 9 Quality: + stabbing and + sharp Relieved By: + nothing Exacerbated By: + nothing Context: + history of similar episodes (history of pancreatitis) Associated Symptoms: + nausea and + vomiting; no diarrhea, no fever, no chills, no constipation, no dysuria, no hematemesis, no hematochezia, no melena, no hematuria, no anorexia, no syncope, no headache, no neck pain, no back pain, no chest pain, no weakness, no breathing difficulty and no numbness History of pancreatitis secondary to alcohol abuse. Patient denies using alcohol recently. Patient states he was at [facility] emergency department yesterday and he left because he states they were not helping him. He did bring the CT scan of the abdomen from [facility]. Home Medications Medication Instructions Recorded Confirmed Type pantoprazole 40 mg tablet,delayed 40 mg PO BID 09/03/21 10/18/21 History release quetiapine 50 mg tablet (Seroquel) 50 mg PO BID 10/18/21 10/18/21 History warfarin 5 mg tablet 5 - 10 mg PO DIRECTED 10/18/21 10/18/21 History Allergies Allergy/AdvReac Type Severity Reaction Status Date / Time No Known Allergies Allergy Unverified 10/18/21 00:40 Past Med/Surg History Medical History Alcohol use disorder GERD (gastroesophageal reflux disease) History of alcohol abuse Hypertension No pertinent family history Pseudocyst of pancreas Recurrent pancreatitis Surgical History No pertinent past surgical history Social History Smoking Status: Current every day smoker Preferred Language: Citizen Of [place] Communication Ability: Effective Current Living Situation: Alone Feels Safe at Home: Yes Assistive Devices: None Review of Systems A total of 10 systems reviewed and were otherwise negative Physical Exam Vital Signs: Vital Signs - 24 hr 10/17/21 22:05 10/17/21 22:53 10/17/21 23:32 Temperature 37 C Temperature Source Temporal Artery Sc an Pulse Rate 123 H 93 H Pulse Rate [Finger ] 87 Pulse Rhythm Regular Pulse Rhythm [Fing er] Regular Pulse Strength Normal Pulse Strength [Fi nger] Normal Respiratory Rate 18 20 18 Respiratory Effort / Characteristics Non-Labored Sponta neous Non-Labored Sponta neous Respiratory Depth Normal Normal Respiratory Patter n Regular Blood Pressure 144/96 H Blood Pressure [Le ft Arm] 127/84 Blood Pressure Lynette n 112 Blood Pressure Lynette n [Left Arm] 98 Blood Pressure Pos ition Sitting Blood Pressure Pos ition [Left Arm] Lying Pulse Oximetry 97 96 94 Oxygen Delivery Me thod Room Air Room Air Room Air Sepsis Recent Feve r Within 48 Hours No Sepsis New/Unexpla ined Change in Men spenser Status N/A Sepsis Action Take n by Nursing No Action Required 10/18/21 01:07 Temperature Temperature Source Pulse Rate Pulse Rate [Finger ] 101 H Pulse Rhythm Pulse Rhythm [Fing er] Pulse Strength Pulse Strength [Fi nger] Respiratory Rate 18 Respiratory Effort / Characteristics Non-Labored Sponta neous Respiratory Depth Normal Respiratory Patter n Blood Pressure Blood Pressure [Le ft Arm] 135/90 Blood Pressure Lynette n Blood Pressure Lynette n [Left Arm] 105 Blood Pressure Pos ition Blood Pressure Pos ition [Left Arm] Lying Pulse Oximetry 98 Oxygen Delivery Me thod Room Air Sepsis Recent Feve r Within 48 Hours Sepsis New/Unexpla ined Change in Men spenser Status Sepsis Action Take n by Nursing Physical Exam: Physical Exam GENERAL: He is oriented to person, place, and time. He appears well-developed and well-nourished. He does not appear distressed. HENT: Exam performed. - Head: Normocephalic and atraumatic. - Right Ear: External ear normal. No mastoid tenderness. - Left Ear: External ear normal. No mastoid tenderness. - Mouth/Throat: The oropharynx is clear and moist. No trismus in the jaw. No dental abscesses or uvula swelling. No oropharyngeal exudate or tonsillar abscesses. EYES: Conjunctivae and EOM are normal. Pupils are equal, round, and reactive to light. Right eye exhibits no discharge. Left eye exhibits no discharge. No scleral icterus. NECK: Normal range of motion. Neck supple. No JVD present. No spinous process tenderness present. No carotid bruit present. No rigidity. No tracheal deviation and normal range of motion present. No Brudzinski's sign and no Kernig's sign noted. CV: Normal rate, regular rhythm, normal heart sounds and intact distal pulses. There is no peripheral edema. Palpable radial pulses bue. PULM/CHEST: Effort normal and breath sounds normal. No respiratory distress. No stridor. He has no wheezes. He has no rales. - Chest Wall: He exhibits no tenderness. ABD: The abdomen is soft. Bowel sounds are normal. He has no distension. No mass is present. There is tenderness to palpation of the epigastric area There is no rebound, no guarding, no Tadeo's sign and no tenderness at McBurney's point. Rovsig negative. MUSC/SKEL: Normal range of motion. There is no peripheral edema, tenderness or deformity. LYMPH: No cervical adenopathy. NEURO: He is alert and oriented to person, place, and time. He has normal strength. No cranial nerve deficit or sensory deficit. Coordination and gait normal. GCS eye subscore is 4. GCS verbal subscore is 5. GCS motor subscore is 6 . Cerebellar tests wnl. SKIN: Skin is warm and dry. He is not diaphoretic. PSYCH: He has a normal mood and affect. Behavior is normal. Judgment and thought content normal. Course Course 2209: The patient was evaluated in room A10. A complete history and physical exam was performed Cardiac monitoring: An order was placed for continuous cardiac monitoring. The monitor shows a rate of 90 with sinus rhythm EMR reviewed. Patient was admitted from September 03 to September 07, 2021 for similar episode where the patient was coming in for abdominal pain misdiagnosed with pancreatitis after the left AMA from [facility] also. That time the patient was diagnosed with necrotizing pancreatitis. CT of the abdomen showed evidence of necrotizing pancreatitis marked peripancreatic inflammation and fluid as well as pseudocyst. GI recommended n.p.o. IV fluids and repeat CAT scan in 2 weeks. Patient did not follow-up for repeat CAT scan in 2 weeks. 0150: Vital signs stable. Labs within normal limits with the exception of leukocytosis of 13 and lipase of 255. CAT scan showed pancreatitis with persistent infiltration of the peripancreatic fat. As on the prior study there is evidence of pancreatic necrosis to the body and tail of pancreas. Previously seen loculated fluid collection pancreatic body and tail is enlarged and become more ill-defined and heterogeneous with areas of high density. In the more dist al portion of the pancreatic tail there is now an air-fluid level which may represent some interval bleeding. I did discuss the patient's presentation, physical exam, and read the CT report verbatim to Dr. Hu on-call GI who states there is no emergent intervention needed. He recommends supportive care and that the hospitalist team admit the patient and that the GI team should be consulted and will see him in the morning he also recommends surgery be consulted and see the patient in the morning also. Discussed the case with Dr. Simpson who will evaluate the patient. Administered Medications Discontinued Medications Hydromorphone HCl (Hydromorphone Inj 1 Mg/Ml Syringe) 1 mg IV NOW STA Stop: 10/17/21 23:49 Last Admin: 10/17/21 23:53 Dose: 1 mg Documented by: [id number] Sodium Chloride (Nss 1000ml) 1,000 mls @ 999 mls/hr IV .Q1H1M ONE Stop: 10/17/21 23:12 Last Infusion: 10/18/21 00:48 Dose: 0 mls/hr Documented by: [id number] Admin: 10/17/21 23:25 Dose: 999 mls/hr Documented by: [id number] Ioversol (Optiray 320 100ml) 94 ml IV ONCE ONE Stop: 10/18/21 00:09 Last Admin: 10/18/21 00:09 Dose: 94 ml Documented by: [id number] Morphine Sulfate (Morphine Sulfate 4 Mg/Ml 1 Ml Carp\Vial) 4 mg IV NOW STA Stop: 10/17/21 22:13 Last Admin: 10/17/21 23:28 Dose: 4 mg Documented by: [id number] Ondansetron HCl (Ondansetron Inj 2 Mg/Ml 2 Ml Vial) 4 mg IV NOW STA Stop: 10/17/21 22:13 Last Admin: 10/17/21 23:25 Dose: 4 mg Documented by: [id number] Medical Decision Making Laboratory Data Result diagrams: 10/17/21 23:17 10/17/21 23:17 Lab Results 10/17/21 10/17/21 Range/Units 23:17 23:17 WBC 13.15 H (4.8-10.8) K/uL RBC 4.76 (4.7-6.1) M/uL Hgb 14.4 (14.0-18.0) g/dL Hct 41.6 L (42-52) % MCV 87.4 (80-100) fL MCH 30.3 (25-34) pg MCHC 34.6 (32-36) g/dL RDW Std Deviation 48.3 H (36.4-46.3) fL RDW Coeff of Gay 14.9 H (11.5-14.5) % Plt Count 355 (130-400) K/uL MPV 11.1 H (7.4-10.4) fL Immature Gran % (Auto) 0.2 % Neut % (Auto) 84.8 % Lymph % (Auto) 7.7 % [place] % (Auto) 5.3 % Eos % (Auto) 1.8 % Baso % (Auto) 0.2 % Neut # (Auto) 11.15 H (1.4-6.5) K/uL Lymph # (Auto) 1.01 L (1.2-3.4) K/uL [place] # (Auto) 0.70 H (0.11-0.59) K/uL Eos # (Auto) 0.24 (0-0.5) K/uL Baso # (Auto) 0.02 (0-0.2) K/uL Immature Gran # (Auto) 0.03 H (0.00-0.02) K/uL Sodium 137 (136-145) mmol/L Potassium 3.7 (3.5-5.1) mmol/L Chloride 98 (98-107) mmol/L Carbon Dioxide 25 (21-32) mmol/L Anion Gap 14 H (3-11) BUN 11 (6-23) mg/dl Creatinine 0.44 L (0.6-1.4) mg/dl Est Cr Clr Drug Dosing 239.6 ml/min Est GFR ( Amer) > 150.0 ml/min Est GFR (Non-Af Amer) 149.0 ml/min BUN/Creatinine Ratio 25.0 H (10-20) Glucose 120 H (70-99(Fasting)) mg/dl Calcium 9.1 (8.5-10.1) mg/dl Total Bilirubin 0.5 (0.2-1.0) mg/dl Direct Bilirubin 0.1 (0-0.2) mg/dl AST 13 (13-39) U/L ALT 8 (7-52) U/L Alkaline Phosphatase 79 (34-104) U/L Total Protein 7.1 (6.0-8.3) gm/dl Albumin 3.6 (3.4-5.0) gm/dl Lipase 255 H (11-82) U/L Imaging Data Radiologist's Impression: Preliminary Findings Only See Final Report For Complete Findings CT ABDOMEN & PELVIS With Contrast: Comparison is made to prior study dated September 03, 2021. As on the prior study, there is some evidence of pancreatic necrosis of the body and tail of the pancreas. A previously seen loculated fluid collection in the pancreatic body and tail has enlarged and become more ill-defined and heterogeneous with areas of high density. In the more distal portion in the pancreatic tail, there is now a fluid-fluid level. This may represent some interval bleeding into the collection. There is some persistent infiltration in the peripancreatic fat. There is a small to moderate amount of ascites which is increased from the prior study. High density material seen in the gallbladder, though previously seen gallbladder wall edema has significantly improved. Radiologist: Neno Carmichael MD Study ready at 00:39 and initial results transmitted at 01:02 MDM Narrative 2210: The patient was evaluated in room A10. A complete history and physical exam was performed Cardiac monitoring: An order was placed for continuous cardiac monitoring. The monitor shows a rate of 90 with sinus rhythm EMR reviewed. Patient was admitted from September 03 to September 07, 2021 for similar episode where the patient was coming in for abdominal pain misdiagnosed with pancreatitis after the left AMA from [facility] also. That time the patient was diagnosed with necrotizing pancreatitis. CT of the abdomen showed evidence of necrotizing pancreatitis marked peripancreatic inflammation and fluid as well as pseudocyst. GI recommended n.p.o. IV fluids and repeat CAT scan in 2 weeks. Patient did not follow-up for repeat CAT scan in 2 weeks. 0150: Vital signs stable. Labs within normal limits with the exception of leukocytosis of 13 and lipase of 255. CAT scan showed pancreatitis with persist ent infiltration of the peripancreatic fat. As on the prior study there is evidence of pancreatic necrosis to the body and tail of pancreas. Previously seen loculated fluid collection pancreatic body and tail is enlarged and become more ill-defined and heterogeneous with areas of high density. In the more distal portion of the pancreatic tail there is now an air-fluid level which may represent some interval bleeding. I did discuss the patient's presentation, physical exam, and read the CT report verbatim to Dr. Hu on-call GI who states there is no emergent intervention needed. He recommends supportive care and that the hospitalist team admit the patient and that the GI team should be consulted and will see him in the morning he also recommends surgery be consulted and see the patient in the morning also. Discussed the case with Dr. Simpson who will evaluate the patient. Impression & Plan Pancreatitis, Pancreatic pseudocyst Discharge Plan Visit Data Chief Complaint: Abdominal Pain Stated Complaint: ABD PAIN, PANCREASE, BLOOD CLOT R SIDE ED Provider: Sudhakar Butler Discharge Problem: Pancreatitis, Pancreatic pseudocyst Patient Disposition: Admitted As Inpatient Forms Stand Alone Forms: My [facility] Prescriptions Prescriptions: No Action pantoprazole 40 mg tablet,delayed release (DR/EC) 40 mg PO BID RF: 0 warfarin 5 mg tablet 5 - 10 mg PO DIRECTED RF: 0 quetiapine [Seroquel] 50 mg tablet 50 mg PO BID RF: 0 Referrals Referrals: PCP,NO [Primary Care Provider] -
[2021-10-18] MEDS ORDERED: HYDROmorphone INJ 1 MG/ML SYRINGE IV STA ×2 (01:43→09:14)
[2021-10-18] MEDS ORDERED: GI COCKTAIL ED USE PO ONE (01:47)
[2021-10-18] MEDS: SODIUM CHLORIDE 0.9% 1000ML 1,000 ML IV SCH ×3 (01:52→19:42)
--- NOTE | 2021-10-18 01:55 | History & Physical Report ---
Date of Service October 18, 2021 Assessment & Plan (1) Pancreatitis: Plan: This is a 36-year-old gentleman with a history of alcohol use disorder currently in remission, previous bouts of alcoholic pancreatitis w/ evidence of pseudocysts and necrosis on previous scans, recently diagnosed ?venous thrombus somewhere within his renal-portal circulation (per his report), GERD, and hypertension who presented to [facility] for evaluation of abdominal pain, subsequently found to have evidence on imaging concerning for pancreatitis and enlarging adjacent fluid collections -- in the setting of previously elevated INR and recent initiation on Warfarin. Recurrent Pancreatitis in Setting of Known Pancreatic Necrosis / Enlarging Adjacent Pancreatic Fluid Collection Patient with previous history of significant alcohol use disorder, currently in remission, and previous bouts of alcoholic pancreatitis; now with known baseline of pancreatic necrosis CT abdomen pelvis (stat rad) demonstrating " Previously seen loculated fluid collection in the pancreatic body and tail that has enlarged and become more ill-defined and heterogeneous with areas of high density. In the more distal portion in the pancreatic tail, there is now a fluidfluid level There is some persistent infiltration in the peripancreatic fat" Primary concern that the appearance of this enlarging fluid collection may represent hemorrhage (in setting of supratherapeutic INR), infection, or both Emergency physician spoke with on-call [facility] GI physician, who did recommend observing through the night -- Consult [facility] GI: appreciate recommendations, indications for IR drainage/sampling of this fluid, and timeframe of doing such Continue mIVF @ 150cc/hr -- s/p 2L in ED Given concern for possible infectious etiology of fluid collection / elevated WBCs: Unasyn q6h N.p.o. for now, consider advancing after GI evaluation (?in case of need for procedure) and symptoms improve Single Episode of Hematemesis Patient reporting one-time episode of blood-streaked vomitus that occurred 10/18 while in the ED Insetting of frequent vomiting over the last several days with acute episode of pancreatitis Suspect most likely inflammation/mild esophageal tear -- patient does NOT have known h/o cirrhosis GI consulted, as above Protonix 40 mg twice daily IV for now, transition back to home PPI when bradford ropriate H&H stable. Monitor VS. CBC in a.m. N.p.o. Supratherapeutic INR Insetting of known venous thrombus ("between kidneys and liver"), per patient, for which he recently started taking warfarin Vitamin K 5 mg p.o. X1 Hold warfarin Monitor for bleeding INR every morning History of Venous Thrombus Per patient, was discovered on a scan taken by his outpatient GI provider on 10/08 -- specifics of this clot, other than where patient localizes it, is unknown at this time Attempt to obtain outpatient records Unclear how much this has been worked up as an outpatient already: Patient already on warfarin, may want to consider hypercoagulability work-up Hold home warfarin Mood disorder Hold home medication (Seroquel) until reevaluated in a.m. for intake abilities Dispo: MedSurg with telemetry Diet: N.p.o. Prophylaxis: Supratherapeutic INR. Hold home warfarin. Consider SCDs moving forward. Code: Full code. (2) Pancreatic pseudocyst: (3) Hepatic steatosis: (4) GERD (gastroesophageal reflux disease): (5) Hypertension: (6) Necrotizing pancreatitis: (7) Acute epigastric pain: (8) Nausea: History of Present Illness Primary Care Provider: NO PCP This is a 36-year-old gentleman with a history of alcohol use disorder currently in remission, previous bouts of alcoholic pancreatitis w/ evidence of pseudocysts and necrosis on previous scans, recently diagnosed ?venous thrombus somewhere within his renal-portal circulation (per his report), GERD, and hypertension who presented to [facility] for evaluation of abdominal pain. Per patient this is been ongoing for about 2 days. He describes it as severe and epigastric in location. Describes it as a gnawing- type sensation, deep. He says that he has had several bouts of nausea with vomiting since that time. Describes one episode of blood-streaked vomitus while he was here in the ER, none previously. Has not been able to eat/drink for about 1.5 days since this has all began. Patient was actually in [facility] earlier yesterday for evaluation of this pain, but left before management could be pursued. He says he has been urinating normally, but it has been more dark appearing than usual. He endorses passing gas. Of note, patient does note that he is being seen by Kenneth Bowers for evaluation of his chronic pancreatitis. He said that he was recently diagnosed with a "blood clot between my liver and kidney" and subsequently started on warfarin. He was told a few days ago that his INR was at 5; as such, he was told to hold his warfarin for another couple days. Patient has a history of alcohol use disorder and is currently in remission, since the end of August. He denies recent use or relapse. He denies any use of recreational drugs. He does endorse smoking about half a pack a day for the last number of years. In the ED, patient was found to be normotensive and mildly tachycardic. His labs were significant for a white count of 13 with left shift. His lipase was elevated at 255. CT of the abdomen and pelvis with contrast demonstrates evidence of pancreatic necrosis in the body and tail of the pancreas, as well as a loculated fluid collection within this area that is become enlarged and more ill-defined; further, radiologist noted presence of a fluidfluid level in the pancreatic tail, as well as peripancreatic infiltration/inflammation, and small to moderate amount of ascites. He was given a 1 L bolus of IV fluids, started on maintenance fluids, and also given morphine and Dilaudid for pain control. Emergency physician called the on-call GI physician to review these findings; the recommended monitoring until the a.m. and reassessing at that time. Allergies Allergy/AdvReac Type Severity Reaction Status Date / Time No Known Allergies Allergy Unverified 10/18/21 00:40 Home Medications Medication Instructions Recorded Confirmed Type pantoprazole 40 mg tablet,delayed 40 mg PO BID 09/03/21 10/18/21 History release quetiapine 50 mg tablet (Seroquel) 50 mg PO BID 10/18/21 10/18/21 History warfarin 5 mg tablet 5 - 10 mg PO DIRECTED 10/18/21 10/18/21 History Past Med/Surg History Medical History Alcohol use disorder GERD (gastroesophageal reflux disease) History of alcohol abuse Hypertension No pertinent family history Pseudocyst of pancreas Recurrent pancreatitis Surgical History No pertinent past surgical history Social History Smoking Status: Current every day smoker Hx Alcohol Use: No Hx Substance Use: No Preferred Language: Slovak Communication Ability: Effective [employer] Required: No Beliefs That Will Affect Care: None Current Living Situation: Parent Feels Safe at Home: Yes Assistive Devices: None Review of Systems Review of Systems: as per HPI Physical Exam Physical Exam: General: Well-appearing 36-year-old gentleman in no acute distress HEENT: NCAT. Trachea midline. No JVD Cardiac: Normal rate, regular rhythm. S1 and S2 are present without murmurs rubs or gallops Cardiac: Good respiratory effort with symmetric expansion of the chest, lungs are clear to auscultation bilaterally without crackles or wheezes Abdominal: NABS. Abdomen is mildly distended and mild amount of fluid wave is appreciated. There is tenderness to palpation in the epigastric region. There is no rebound or guarding Extremities: No peripheral edema Neurologic: Alert and oriented x4. Movement of limbs is symmetric. Results & Data Results & Data ([facility]) Vital Signs (Past 12 Hours) Vital Signs Temp Pulse Pulse Resp BP BP Pulse Ox 10/18/21 01:07 101 H 18 135/90 98 10/17/21 23:32 87 18 127/84 94 10/17/21 22:53 93 H 20 96 10/17/21 22:05 37 C 123 H 18 144/96 H 97 Supervising Physician Co-Signing Physician Notes Attending addendum: I have physically seen this patient, have supervised the medical residents activities, and agree with the H&P unless as otherwise noted. Assessment and Plan: Recurrent pancreatitis/pancreatic necrosis/enlarging fluid collections- Discussed with GI over the phone, recommends patient be admitted here N.p.o. Received 2 L normal saline ED bolus, and will continue on at 150 mils per hour Follow serial CBC with differential, chemistry profile, magnesium, lipase Follow blood cultures Question whether patient may ultimately need IR drainage Broad-spectrum IV antibiotics as noted Consult gastroenterology Single episode of hematemesis- N.p.o. Protonix 40 mg IV twice daily Work-up per gastroenterology Remaining orders and notations as noted Resident Activity Tracking Resident Involvement: Resident Care Provided Care Provided: Adult Hospital Medicine (1) Pancreatitis Chronicity: chronic Pancreatitis type: unspecified pancreatitis type Qualified Code(s): K86.1 - Other chronic pancreatitis
[2021-10-18 02:20] LABS: Partial Thromboplastin Ratio 1.9; Prothrombin Time 70.8 Seconds (9.0-12.0)
[2021-10-18 02:23] LABS: INR 8.3 (0.9-1.1); Partial Thromboplastin Time 49.8 Seconds (21.0-31.0)
[2021-10-18] MEDS ORDERED: PHYTONADIONE 5 MG TAB PO STA (02:41)
[2021-10-18] MEDS ORDERED: HYDROmorphone INJ 0.5 MG/0.5 ML SYR IV PRN (02:54)
[2021-10-18] MEDS ORDERED: ACETAMINOPHEN 1000 MG/100 ML IV IV STA (03:02)
[2021-10-18] MEDS ORDERED: FAMOTIDINE 20 MG in SYRINGE 3 ML IV STA (03:02)
[2021-10-18] MEDS: AMPICILLIN/SULBACTAM SOD 3,000 MG in 0.9 % SODIUM CHLORIDE 100 ML IV SCH ×4 (03:07→19:43)
[2021-10-18 06:25] LABS: Basophils # (auto) 0.02 K/uL (0-0.2); Basophils % (auto) 0.2 %; Eosinophils # (auto) 0.21 K/uL (0-0.5); Eosinophils % (auto) 1.9 %; Hematocrit (blood only) 35.3 % (42-52); Hemoglobin 11.9 g/dL (14.0-18.0); Immature Granulocytes # (auto) 0.02 K/uL (0.00-0.02); Immature Granulocytes % (auto) 0.2 %; Lymphocytes # (auto) 1.36 K/uL (1.2-3.4); Mean Corpuscular Hemoglobin 29.6 pg (25-34); Mean Corpuscular Hgb Conc 33.7 g/dL (32-36); Mean Corpuscular Volume 87.8 fL (80-100); Mean Platelet Volume 11.2 fL (7.4-10.4); Monocytes # (auto) 0.92 K/uL (0.11-0.59); Monocytes % (auto) 8.1 %; Neutrophils % (auto) 77.6 %; Platelet Count 307 K/uL (130-400); RDW Standard Deviation 48.4 fL (36.4-46.3); Red Blood Count 4.02 M/uL (4.7-6.1); White Blood Count 11.33 K/uL (4.8-10.8)
[2021-10-18 06:40] LABS: Prothrombin Time 80.7 Seconds (9.0-12.0)
[2021-10-18 06:45] LABS: INR 9.5 (0.9-1.1)
[2021-10-18 06:47] LABS: Alanine Aminotransferase 6 U/L (7-52); Albumin Level 3.1 gm/dl (3.4-5.0); Alkaline Phosphatase 65 U/L (34-104); Anion Gap 11 (3-11); Aspartate Aminotransferase 10 U/L (13-39); Bilirubin,Total 0.5 mg/dl (0.2-1.0); Blood Urea Nitrogen 10 mg/dl (6-23); Calcium 8.5 mg/dl (8.5-10.1); Carbon Dioxide 25 mmol/L (21-32); Chloride 102 mmol/L (98-107); Creatinine Clr Calc Pharmacy 259.5 ml/min; Est GFR (African American) > 150.0 ml/min; Est GFR (Non-African American) > 150.0 ml/min; Glucose 104 mg/dl (70-99(Fasting)); Potassium 3.5 mmol/L (3.5-5.1); Sodium 138 mmol/L (136-145); Total Protein 6.1 gm/dl (6.0-8.3)
--- NOTE | 2021-10-18 07:13 | CT Scan Report ---
ABDOMEN AND PELVIS CT WITH IV CONTRAST CT DOSE: 408.41 mGy.cm HISTORY: Acute generalized abdominal pain with history of pancreatitis. abd pain pancreatitis TECHNIQUE: Multiaxial CT images of the abdomen and pelvis were performed following the IV administrat ion of 94 cc of Optiray, A dose lowering technique was utilized adhering to the principles of ALARA. COMPARISON STUDY: CT abdomen and pelvis 09/03/2021 FINDINGS: Trace pleural effusions. Mild bibasilar dependent consolidation. No pneumatosis or pneumope ritoneum. The spleen and adrenal glands are unremarkable. Mild gallbladder wall thickening. Hyperdens e material within the gallbladder lumen redemonstrated. Hepatic steatosis. No hepatic mass lesion bhavani ntified. Patent portal vein. There is mild narrowing at the portal splenic confluence, likely seconda ry to extrinsic mass effect without occlusion. Interstitial and peripancreatic edema is redemonstrated. A peripherally enhancing complex collection is again noted in the expected location of the pancreatic body and tail which previously measured 4.0 x 9.5 x 3.5 cm and now measures 6.1 x 10.4 x 5.7 cm when measured in a similar fashion and is now fi lled with complex material with increased attenuation, nausea measuring up to 66. Loculation extends anteriorly and inferiorly. Fluid collection is also noted extending along the lesser curvature of the stomach. Periportal and pericaval adenopathy is noted measuring up to 1.2 cm in short axis. Mesenter ic edema with small volume of abdominopelvic ascites has progressed from prior. Unremarkable kidneys. No hydronephrosis. Partial distention of the urinary bladder with mild wall thi ckening. Mild prostamegaly. No abdominal aortic aneurysm. There is mild wall thickening noted throughout the stomach and duodenum. There is no bowel obstructio n. Retained enteric contrast within the large bowel. Mild fecal retention. Noninflamed appendix. Unre markable soft tissues. No acute fracture. IMPRESSION: 1. Worsening necrotizing pancreatitis with combined peripancreatic and parenchymal necrosis. 2. Increased size, attenuation and complexity of the multiloculated fluid collection within the expec kathi location of the pancreatic body and tail now measuring over 10 cm in greatest dimension suggestiv e of walled-off pancreatic necrosis, likely with associated internal hemorrhagic and proteinaceous de bris. 3. There is narrowing of the portal splenic confluence secondary to extrinsic mass effect. A partiall y occlusive thrombus would be difficult to exclude. Attention at follow-up recommended. 4. Progressively worsened mesenteric edema with abdominal pelvic ascites. 5. Periportal and pericaval adenopathy is noted in addition to mild wall thickening of the stomach an d duodenum, likely reactive. 6. Hepatic steatosis. 7. Trace pleural effusions with mild dependent bibasilar consolidation. 8. Additional findings as above. ACT 112: Negative or not required by law. The above report was generated using voice recognition software. It may contain grammatical, syntax o r spelling errors. Electronically signed by: Saeid Gilbert M.D. 10/18/2021 7:11 AM
[2021-10-18] MEDS: PANTOprazole 40 MG in SYRINGE 0 ML IV SCH ×2 (08:32→22:06)
[2021-10-18] MEDS ORDERED: QUEtiapine FUMARATE 25 MG TABLET PO SCH (09:00)
[2021-10-18] MEDS ORDERED: HYDROmorphone INJ 1 MG/ML SYRINGE IV PRN (09:14)
--- NOTE | 2021-10-18 11:02 | Gastrointestinal Consultation ---
Date of Consultation October 18, 2021 Assessment & Plan (1) Necrotizing pancreatitis: (2) Pancreatic pseudocyst: Recommend transfer to a tertiary care center for pancreatic necrosectomy. Appreciate primary services correction of INR to therapeutic range for port/splenic vein thrombus. May have clear liquids po here which awaiting transfer. Continue IV fluids, analgesics. Supervising Physician Co-Signing Physician Notes I saw and evaluated the patient. We are consulted for evaluation of abdominal pain thought to be related to a large pseudocyst. The patient has a history of alcohol abuse but states he has been abstinent for approximately 3 to 4 months. He was found to have evidence of a pseudocyst during a CT scan in August that was approximately 10 cm in diameter. Follow-up CT scan done during this admission shows persistent large cystic structure with walled off necrosis in the region of the pancreatic body. The patient reports having severe epigastric discomfort and nausea with eating. Physical examination No obvious distress Tender to palpation in the abdomen Impression: Patient with a complex pseudocyst of the pancreatic body measuring 10 cm in diameter. As the structure has been there for greater than 6 weeks he may benefit from cystoscopy drainage. Given the complexity of the internal material I would suggest referral to a tertiary center as he will likely need placement of an axios and debridement of material within the cyst. This will likely require numerous procedures over several weeks. Recommendations continue with IV hydration recommend referral to a tertiary Medical Center History of Present Illness Reason for Consultation: hx nec pancr, enlarging peripanc fluid- ?drain Requesting Physician: Albino Boyd Attending Physician: Albino Ybarra DO History of Present Illness Mr. Saeid Acosta is a 36 yr old male pt w/o regular OP care (no PCP) who experienced ETOH pancreatitis in Jun 2021 and has abstained since then. He was admitted in Aug, at that time with a pseudocyst with conservative tx and plans to re-image this week. However, he presented to the ED today because his abd pain became severe. he has also had intermittent nausea and vomiting. No jaundice, icterus, diarrhea, constipation or fevers. No dysuria or concentrated urine. On arrival, imaging suggests a 10cm necrotizing pancreatitis complex fluid collection in the pancreas body/tail. He has a partially occlusive thrombus on CT for which he was on warfarin at home. INR is supratheraputic and he has recieved Vit K. He is awake, alert, hemodynamically stable but remains painful. Allergies Allergy/AdvReac Type Severity Reaction Status Date / Time No Known Allergies Allergy Unverified 10/18/21 00:40 Home Medications Medication Instructions Recorded Confirmed Type pantoprazole 40 mg tablet,delayed 40 mg PO BID 09/03/21 10/18/21 History release quetiapine 50 mg tablet (Seroquel) 50 mg PO BID 10/18/21 10/18/21 History warfarin 5 mg tablet 5 - 10 mg PO DIRECTED 10/18/21 10/18/21 History Patient History Medical History Alcohol use disorder GERD (gastroesophageal reflux disease) History of alcohol abuse Hypertension No pertinent family history Pseudocyst of pancreas Recurrent pancreatitis Surgical History No pertinent past surgical history Social History Smoking Status: Current every day smoker Hx Alcohol Use: No Hx Substance Use: No Preferred Language: Irish Communication Ability: Effective Scissors Sharpener Required: No Beliefs That Will Affect Care: None Current Living Situation: Parent Feels Safe at Home: Yes Assistive Devices: None Review of Systems Review of Systems: ROS: Gen: mild weakness, + weight loss; no fevers Eyes: No eye redness, or pain, no recent vision changes Resp: No SOB, no cough Cardio: No palpitations/irregular beats, no chest pain GI: as per HPI, otherwise (-) : Denies pain on urination Skin: No jaundice, itching or new rashes Physical Exam Constitutional: well developed, + ill appearing, + thin and cooperative Eyes: PERRL, conjunctivae normal, anicteric sclerae Respiratory: normal respiratory effort and able to speak in complete sentences; no respiratory distress, no labored breathing, does not use accessory muscles and no cough Cardiovascular: RRR, no murmur, no edema Gastrointestinal (Abdomen): Inspection/Auscultation: abdomen normal to inspection and + hypoactive bowel sounds; abdomen not distended and no abdominal edema Percussion/Palpation: + abdomen tender (exquisitely tender over the enitre upper abd) and abdomen soft; no ascites Skin: no rashes, warm and dry Neurologic: PERRL, EOMI, accommodation nl, no face palsy, no dysarthria awake; not confused Psychiatric: A+Ox3, euthymic affect Lymphatic: no cervical or axillary lymphadenopathy Results & Data ([facility]) Vital Signs (Past 12 Hours) Vital Signs Temp Pulse Pulse Resp BP Pulse Ox 10/18/21 07:24 36.9 C 57 L 18 110/65 96 10/18/21 02:45 37.2 C 91 H 16 155/91 H 97 10/18/21 01:07 101 H 18 135/90 98 10/17/21 23:32 87 18 127/84 94 10/17/21 22:53 93 H 20 96 Laboratory Results WBC 11.3, Hb 11.9, Hct 35, Plts 307, PT 80, INR 9.5, Na 138, K 3.5, Cl 102, CO2 25, BUN 10, Cr 0.4 Diagnostic Findings CTAP w IV 10/17/20 1. Worsening necrotizing pancreatitis with combined peripancreatic and parenchymal necrosis. 2. Increased size, attenuation and complexity of the multiloculated fluid collection within the expected location of the pancreatic body and tail now measuring over 10 cm in greatest dimension suggestive of walled-off pancreatic necrosis, likely with associated Internal hemorrhagic and proteinaceous debris. 3. There is narrowing of the portal splenic confluence secondary to extrinsic mass effect. A partially occlusive thrombus would be difficult to exclude. Attention at follow-up recommended. 4. Progressively worsened mesenteric edema with abdominal pelvic ascites. 5. Periportal and pericaval adenopathy is noted in addition to mild wall thickening of the stomach and duodenum, likely reactive. 6. Hepatic steatosis. 7. Trace pleural effusions with mild dependent bibasilar consolidation.
--- NOTE | 2021-10-18 11:08 | Medical Student Progress Note ---
Date of Service October 18, 2021 Assessment & Plan (1) Necrotizing pancreatitis: (2) Supratherapeutic INR: (3) GERD (gastroesophageal reflux disease): (4) Mood disorder: Plan: 36 year old male with a hx of alcohol use disorder, recurrent alcoholic pancreatitis with necrosis, recently diagnosed portal venous thrombus (per patient), admitted for severe abdominal pain secondary to necrotizing pancreatitis, currently stable. 1. Necrotizing Pancreatitis - severe abdominal pain, no infectious symptoms - GI consulted: recommending transfer to tertiary care center for pancreatic necrosectomy and supportive care - accepted at [facility], waiting placement - Symptomatic care: NSS @ 125 mL/hr, pain control, NPO with sips and chips, unasyn - CT abdomen pelvis (10/17) showing necrotizing pancreatitis and necrotic pseudocyst 2. GERD - continue home pantoprazole 3. Supratherapeutic INR - 8.3 on 10/17 - received 5 mg Vit K on 10/17, no effect - 9.5 on 10/18 - given no effect, will not continue - consider FFP or coagulation factors if he bleeds - warfarin (taking for recently found portal venous thrombus) being held 4. Mood disorder - quetiapine held because patient is NPO FEN/GI: NSS/NPO Code: Full code DVT Prophylaxis: warfarin being held Dispo: med with tele Admission and Anticipated Discharge Date Admission Date: October 18, 2021 Supervising Attestation I personally examined the patient and verified all latif points of history and exam, discussed case, and agree with decision making with Allie Nolen MS4 abdominal pain about the same last few days- abruptly worsened about 3 days ago (about 2 days before admission) - worsening was about a week after dx of portal vein thrombosis - which was found incidentally on a CT that was to follow up eval of pancreas. no new symptoms at the time of portal vein thrombosis dx. no EtOH for a few months vitals noted nad heent nc at mmm breathing unlabored no accessory muscles good effort skin no rashes no pallor or icterus abd soft (+) epigastric > LUQ > mild RUQ pain no guarding no rebound no rigidity pancreatic necrosis -continue abx and supportive care pending transfer to tertiary for more definitive eval - appreciate GI input in this regard. cautiously/tenuously stable but will move to tele given potential for deterioration - will move for closer monitoring till bed available otherwise as above Subjective Patient lying in bed looking uncomfortable. States that his pain is mostly in the epigastric area and rates it as a 9 out of 10 pain. He says that the pain started about 2 days ago and feels different from his previous pancreatitis pain; he says that this pain is more intense and more "stabbing" whereas in the past, the pain was more dull. No fevers, no chills, no sweats. Review of Systems Review of Systems: as per Subjective/HPI Physical Exam Constitutional: WD/WN, vitals as above ENMT: external ear and nose normal, oropharynx normal Neck: trachea midline, no thyromegaly Respiratory: normal respiratory effort, lungs clear to auscultation Cardiovascular: RRR, no murmur, no edema Gastrointestinal (Abdomen): Soft, nondistended, epigastric and RUQ/LUQ tenderness down to umbilicus. No guarding, no rigidity, no peritoneal signs Results & Data ([facility]) Vital Signs (Past 12 Hours) Vital Signs Temp Pulse Pulse Resp BP BP Pulse Ox 10/18/21 07:24 36.9 C 57 L 18 110/65 96 10/18/21 02:45 37.2 C 91 H 16 155/91 H 97 10/18/21 01:07 101 H 18 135/90 98 10/17/21 23:32 87 18 127/84 94 10/17/21 22:53 93 H 20 96 10/17/21 22:05 37 C 123 H 18 144/96 H 97 Laboratory Results 10/18/21 10/18/21 10/18/21 Range/Units 06:01 06:01 06:01 WBC 11.33 H (4.8-10.8) K/uL RBC 4.02 L (4.7-6.1) M/uL Hgb 11.9 L (14.0-18.0) g/dL Hct 35.3 L (42-52) % MCV 87.8 (80-100) fL MCH 29.6 (25-34) pg MCHC 33.7 (32-36) g/dL RDW Std Deviation 48.4 H (36.4-46.3) fL RDW Coeff of Gay 15.0 H (11.5-14.5) % Plt Count 307 (130-400) K/uL MPV 11.2 H (7.4-10.4) fL Immature Gran % (Auto) 0.2 % Neut % (Auto) 77.6 % Lymph % (Auto) 12.0 % [place] % (Auto) 8.1 % Eos % (Auto) 1.9 % Baso % (Auto) 0.2 % Neut # (Auto) 8.80 H (1.4-6.5) K/uL Lymph # (Auto) 1.36 (1.2-3.4) K/uL [place] # (Auto) 0.92 H (0.11-0.59) K/uL Eos # (Auto) 0.21 (0-0.5) K/uL Baso # (Auto) 0.02 (0-0.2) K/uL Immature Gran # (Auto) 0.02 (0.00-0.02) K/uL PT 80.7 H (9.0-12.0) Seconds INR 9.5 H* (0.9-1.1) APTT (21.0-31.0) Seconds PTT Ratio Sodium 138 (136-145) mmol/L Potassium 3.5 (3.5-5.1) mmol/L Chloride 102 (98-107) mmol/L Carbon Dioxide 25 (21-32) mmol/L Anion Gap 11 (3-11) BUN 10 (6-23) mg/dl Creatinine 0.40 L (0.6-1.4) mg/dl Est Cr Clr Drug Dosing 259.5 ml/min Est GFR ( Amer) > 150.0 ml/min Est GFR (Non-Af Amer) > 150.0 ml/min BUN/Creatinine Ratio 25.0 H (10-20) Glucose 104 H (70-99(Fasting)) mg/dl Calcium 8.5 (8.5-10.1) mg/dl Total Bilirubin 0.5 (0.2-1.0) mg/dl Direct Bilirubin (0-0.2) mg/dl AST 10 L (13-39) U/L ALT 6 L (7-52) U/L Alkaline Phosphatase 65 (34-104) U/L Total Protein 6.1 (6.0-8.3) gm/dl Albumin 3.1 L (3.4-5.0) gm/dl Globulin 3.0 (2.5-4.0) gm/dl Albumin/Globulin Ratio 1.0 (0.9-2) Lipase (11-82) U/L SARS-CoV-2, RNA, NAAT (NEGATIVE) 10/18/21 10/17/21 10/17/21 Range/Units 01:50 23:17 23:17 WBC (4.8-10.8) K/uL RBC (4.7-6.1) M/uL Hgb (14.0-18.0) g/dL Hct (42-52) % MCV (80-100) fL MCH (25-34) pg MCHC (32-36) g/dL RDW Std Deviation (36.4-46.3) fL RDW Coeff of Gay (11.5-14.5) % Plt Count (130-400) K/uL MPV (7.4-10.4) fL Immature Gran % (Auto) % Neut % (Auto) % Lymph % (Auto) % [place] % (Auto) % Eos % (Auto) % Baso % (Auto) % Neut # (Auto) (1.4-6.5) K/uL Lymph # (Auto) (1.2-3.4) K/uL [place] # (Auto) (0.11-0.59) K/uL Eos # (Auto) (0-0.5) K/uL Baso # (Auto) (0-0.2) K/uL Immature Gran # (Auto) (0.00-0.02) K/uL PT 70.8 H (9.0-12.0) Seconds INR 8.3 H* (0.9-1.1) APTT 49.8 H* (21.0-31.0) Seconds PTT Ratio 1.9 Sodium 137 (136-145) mmol/L Potassium 3.7 (3.5-5.1) mmol/L Chloride 98 (98-107) mmol/L Carbon Dioxide 25 (21-32) mmol/L Anion Gap 14 H (3-11) BUN 11 (6-23) mg/dl Creatinine 0.44 L (0.6-1.4) mg/dl Est Cr Clr Drug Dosing 239.6 ml/min Est GFR ( Amer) > 150.0 ml/min Est GFR (Non-Af Amer) 149.0 ml/min BUN/Creatinine Ratio 25.0 H (10-20) Glucose 120 H (70-99(Fasting)) mg/dl Calcium 9.1 (8.5-10.1) mg/dl Total Bilirubin 0.5 (0.2-1.0) mg/dl Direct Bilirubin 0.1 (0-0.2) mg/dl AST 13 (13-39) U/L ALT 8 (7-52) U/L Alkaline Phosphatase 79 (34-104) U/L Total Protein 7.1 (6.0-8.3) gm/dl Albumin 3.6 (3.4-5.0) gm/dl Globulin (2.5-4.0) gm/dl Albumin/Globulin Ratio (0.9-2) Lipase 255 H (11-82) U/L SARS-CoV-2, RNA, NAAT NEGATIVE (NEGATIVE) 10/17/21 Range/Units 23:17 WBC 13.15 H (4.8-10.8) K/uL RBC 4.76 (4.7-6.1) M/uL Hgb 14.4 (14.0-18.0) g/dL Hct 41.6 L (42-52) % MCV 87.4 (80-100) fL MCH 30.3 (25-34) pg MCHC 34.6 (32-36) g/dL RDW Std Deviation 48.3 H (36.4-46.3) fL RDW Coeff of Gay 14.9 H (11.5-14.5) % Plt Count 355 (130-400) K/uL MPV 11.1 H (7.4-10.4) fL Immature Gran % (Auto) 0.2 % Neut % (Auto) 84.8 % Lymph % (Auto) 7.7 % [place] % (Auto) 5.3 % Eos % (Auto) 1.8 % Baso % (Auto) 0.2 % Neut # (Auto) 11.15 H (1.4-6.5) K/uL Lymph # (Auto) 1.01 L (1.2-3.4) K/uL [place] # (Auto) 0.70 H (0.11-0.59) K/uL Eos # (Auto) 0.24 (0-0.5) K/uL Baso # (Auto) 0.02 (0-0.2) K/uL Immature Gran # (Auto) 0.03 H (0.00-0.02) K/uL PT (9.0-12.0) Seconds INR (0.9-1.1) APTT (21.0-31.0) Seconds PTT Ratio Sodium (136-145) mmol/L Potassium (3.5-5.1) mmol/L Chloride (98-107) mmol/L Carbon Dioxide (21-32) mmol/L Anion Gap (3-11) BUN (6-23) mg/dl Creatinine (0.6-1.4) mg/dl Est Cr Clr Drug Dosing ml/min Est GFR ( Amer) ml/min Est GFR (Non-Af Amer) ml/min BUN/Creatinine Ratio (10-20) Glucose (70-99(Fasting)) mg/dl Calcium (8.5-10.1) mg/dl Total Bilirubin (0.2-1.0) mg/dl Direct Bilirubin (0-0.2) mg/dl AST (13-39) U/L ALT (7-52) U/L Alkaline Phosphatase (34-104) U/L Total Protein (6.0-8.3) gm/dl Albumin (3.4-5.0) gm/dl Globulin (2.5-4.0) gm/dl Albumin/Globulin Ratio (0.9-2) Lipase (11-82) U/L SARS-CoV-2, RNA, NAAT (NEGATIVE) Diagnostic Findings Impressions Abdomen/Pelvis CT 10/17/21 23:[address] WITH IV CONTRAST CT DOSE: 408.41 mGy.cm HISTORY: Acute generalized abdominal pain with history of pancreatitis. abd pain pancreatitis TECHNIQUE: Multiaxial CT images of the abdomen and pelvis were performed following the IV administration of 94 cc of Optiray, A dose lowering technique was utilized adhering to the principles of ALARA. COMPARISON STUDY: CT abdomen and pelvis 09/03/2021 FINDINGS: Trace pleural effusions. Mild bibasilar dependent consolidation. No pneumatosis or pneumoperitoneum. The spleen and adrenal glands are unremarkable. Mild gallbladder wall thickening. Hyperdense material within the gallbladder lumen redemonstrated. Hepatic steatosis. No hepatic mass lesion identified. Patent portal vein. There is mild narrowing at the portal splenic confluence, likely secondary to extrinsic mass effect without occlusion. Interstitial and peripancreatic edema is redemonstrated. A peripherally enhancing complex collection is again noted in the expected location of the pancreatic body and tail which previously measured 4.0 x 9.5 x 3.5 cm and now measures 6.1 x 10.4 x 5.7 cm when measured in a similar fashion and is now filled with complex material with increased attenuation, nausea measuring up to 66. Loculation extends anteriorly and inferiorly. Fluid collection is also noted extending along the lesser curvature of the stomach. Periportal and pericaval adenopathy is noted measuring up to 1.2 cm in short axis. Mesenteric edema with small volume of abdominopelvic ascites has progressed from prior. Unremarkable kidneys. No hydronephrosis. Partial distention of the urinary bladder with mild wall thickening. Mild prostamegaly. No abdominal aortic aneurysm. There is mild wall thickening noted throughout the stomach and duodenum. There is no bowel obstruction. Retained enteric contrast within the large bowel. Mild fecal retention. Noninflamed appendix. Unremarkable soft tissues. No acute frac ture. IMPRESSION: 1. Worsening necrotizing pancreatitis with combined peripancreatic and parenchymal necrosis. 2. Increased size, attenuation and complexity of the multiloculated fluid collection within the expected location of the pancreatic body and tail now measuring over 10 cm in greatest dimension suggestive of walled-off pancreatic necrosis, likely with associated internal hemorrhagic and proteinaceous debris. 3. There is narrowing of the portal splenic confluence secondary to extrinsic mass effect. A partially occlusive thrombus would be difficult to exclude. Attention at follow-up recommended. 4. Progressively worsened mesenteric edema with abdominal pelvic ascites. 5. Periportal and pericaval adenopathy is noted in addition to mild wall thickening of the stomach and duodenum, likely reactive. 6. Hepatic steatosis. 7. Trace pleural effusions with mild dependent bibasilar consolidation. 8. Additional findings as above. ACT 112: Negative or not required by law. The above report was generated using voice recognition software. It may contain grammatical, syntax or spelling errors. Electronically signed by: Saeid Gilbert M.D. 10/18/2021 7:11 AM Medications Administered Current Inpatient Medications Hydromorphone HCl (Hydromorphone Inj 1 Mg/Ml Syringe) 1 mg IV Q3HWA PRN PRN Reason: Pain Stop: 11/01/21 09:13 Last Admin: 10/18/21 15:31 Dose: 1 mg Documented by: Sodium Chloride (Nss 1000ml) 1,000 mls @ 125 mls/hr IV .Q8H [facility] Stop: 11/17/21 01:59 Last Admin: 10/18/21 12:00 Dose: 125 mls/hr Documented by: Ampicillin Sodium/Sulbactam Sodium 3,000 mg/ Sodium Chloride 108 mls @ 200 mls/hr IV Q6H [facility]; Protocol Stop: 10/28/21 02:14 Last Infusion: 10/18/21 15:29 Dose: Infused Documented by: Pantoprazole Sodium 40 mg/ (Syringe) 10 mls @ 5 mls/min IV BID [facility] Stop: 11/17/21 08:59 Last Admin: 10/18/21 08:32 Dose: 5 mls/min Documented by: Quetiapine Fumarate (Quetiapine Fumarate 25 Mg Tablet) 50 mg PO BID [facility] Stop: 11/17/21 08:59
[2021-10-18] MEDS: HYDROmorphone INJ 1 MG/ML SYRINGE IV PRN ×4 (12:28→22:07)
--- NOTE | 2021-10-18 18:13 | Billing Data ---
Date of Service October 18, 2021 Coding Level of Care Code 59079 Subseq Hosp Care Lvl 3
--- NOTE | 2021-10-18 18:13 | Billing Data ---
Date of Service October 18, 2021 Coding Level of Care Code 05664 Subseq Hosp Care Lvl 3
--- NOTE | 2021-10-18 21:33 | Billing Data ---
Date of Service October 18, 2021 Coding Level of Care Code 80327 Initial Inpt Care Lvl 3
[2021-10-19] MEDS: SODIUM CHLORIDE 0.9% 1000ML 1,000 ML IV SCH ×2 (01:48→11:08)
[2021-10-19] MEDS: AMPICILLIN/SULBACTAM SOD 3,000 MG in 0.9 % SODIUM CHLORIDE 100 ML IV SCH ×4 (01:48→19:55)
[2021-10-19] MEDS: HYDROmorphone INJ 1 MG/ML SYRINGE IV PRN ×7 (01:51→21:21)
[2021-10-19 06:39] LABS: Basophils # (auto) 0.02 K/uL (0-0.2); Basophils % (auto) 0.3 %; Eosinophils # (auto) 0.59 K/uL (0-0.5); Eosinophils % (auto) 7.5 %; Hematocrit (blood only) 32.7 % (42-52); Hemoglobin 10.8 g/dL (14.0-18.0); Immature Granulocytes # (auto) 0.03 K/uL (0.00-0.02); Immature Granulocytes % (auto) 0.4 %; Lymphocytes # (auto) 1.55 K/uL (1.2-3.4); Lymphocytes % (auto) 19.8 %; Mean Corpuscular Hemoglobin 29.3 pg (25-34); Mean Corpuscular Volume 88.9 fL (80-100); Monocytes # (auto) 0.61 K/uL (0.11-0.59); Monocytes % (auto) 7.8 %; Neutrophils # (auto) 5.04 K/uL (1.4-6.5); Neutrophils % (auto) 64.2 %; Platelet Count 243 K/uL (130-400); RDW Coefficient of Variation 14.4 % (11.5-14.5); RDW Standard Deviation 47.4 fL (36.4-46.3); Red Blood Count 3.68 M/uL (4.7-6.1); White Blood Count 7.84 K/uL (4.8-10.8)
[2021-10-19 06:59] LABS: Prothrombin Time 19.2 Seconds (9.0-12.0)
[2021-10-19 07:09] LABS: Alanine Aminotransferase 6 U/L (7-52); Albumin Level 2.8 gm/dl (3.4-5.0); Alkaline Phosphatase 60 U/L (34-104); Anion Gap 13 (3-11); Aspartate Aminotransferase 11 U/L (13-39); BUN Creatinine Ratio 16.7 (10-20); Bilirubin,Total 0.7 mg/dl (0.2-1.0); Blood Urea Nitrogen 7 mg/dl (6-23); Carbon Dioxide 18 mmol/L (21-32); Chloride 103 mmol/L (98-107); Creatinine Clr Calc Pharmacy 247.1 ml/min; Est GFR (African American) > 150.0 ml/min; Est GFR (Non-African American) > 150.0 ml/min; Globulin 2.7 gm/dl (2.5-4.0); Glucose 61 mg/dl (70-99(Fasting)); Lipase 69 U/L (11-82); Potassium 3.3 mmol/L (3.5-5.1); Sodium 134 mmol/L (136-145); Total Protein 5.5 gm/dl (6.0-8.3)
--- NOTE | 2021-10-19 08:13 | Medical Student Progress Note ---
Date of Service October 19, 2021 Assessment & Plan (1) Necrotizing pancreatitis: Plan: 36 year old male with a hx of alcohol use disorder (currently in remission), recurrent alcoholic pancreatitis with necrosis, recently diagnosed portal venous thrombus (per patient), admitted for severe abdominal pain secondary to necrotizing pancreatitis, currently stable and waiting placement at [facility]. 1. Necrotizing Pancreatitis - severe abdominal pain, no infectious symptoms - WBC downtrending, 7.84 - GI consulted: recommending transfer to tertiary care center for pancreatic necrosectomy and supportive care - accepted at [facility], waiting placement - Symptomatic care: NSS @ 125 mL/hr, pain control, NPO with sips and chips, unasyn - CT abdomen pelvis (10/17) showing necrotizing pancreatitis and necrotic pseudocyst 2. GERD - continue home pantoprazole 3. Hypokalemia - 3.3 on 10/19 - 10 mEq of KCl 4. Portal vein thrombosis - 2.0 on 10/19 s/p 5 mg vit K on 10/18 - warfarin held because of supratherapeutic INR on admission - 8.3 on 10/17, 9.5 on 10/18 - continue holding warfarin in setting of potential emergent surgery, consider lovenox if INR drops below 1.5 4. Mood disorder - quetiapine held because patient is NPO FEN/GI: NSS/NPO with sips and chips Code: Full code DVT Prophylaxis: warfarin being held; reassess tomorrow Dispo: med with tele, pending transfer to [facility] (2) Supratherapeutic INR: (3) GERD (gastroesophageal reflux disease): (4) Mood disorder: Admission and Anticipated Discharge Date Admission Date: October 18, 2021 Supervising Attestation I personally examined the patient and verified all latif points of history and exam, discussed case, and agree with decision making with Allie Nolen MS4 Pain about the same. Interestingly he notes that after eating the pain seems to improve. Still awaiting bed at [facility]. vitals noted nad heent nc at mmm breathing unlabored no accessory muscles good effort skin no rashes no pallor or icterus pancreatic necrosis -continue abx and supportive care pending transfer to [facility] for more definitive eval - appreciate GI input in this regard. cautiously/tenuously stable but continue close monitoring at this time. Tolerating diet. Portal vein thrombosisINR now corrected to 2. With procedure upcomingwe will hold on resuming Coumadin at this time. Covid exposurefollowno symptoms. otherwise as above Subjective Patient resting in bed, looking uncomfortable. Could not sleep last night. Continues to have pain, ranks it as 8. Feels the dilaudid "takes the edge off." Denies fever, chills, sweats. Tolerating water and ice chips. Review of Systems Review of Systems: as per Subjective/HPI Physical Exam Constitutional: WD/WN, vitals as above ENMT: external ear and nose normal, oropharynx normal Neck: trachea midline, no thyromegaly Respiratory: normal respiratory effort, lungs clear to auscultation Cardiovascular: RRR, no murmur, no edema Gastrointestinal (Abdomen): soft, nondistended, epigastric and RUQ/LUQ tenderness, no guarding, no rebound tenderness, no peritoneal signs Results & Data ([facility]) Vital Signs (Past 12 Hours) Vital Signs Temp Pulse Pulse Resp BP Pulse Ox 10/19/21 07:00 36.9 C 75 20 125/67 93 10/19/21 04:23 36.8 C 71 18 124/80 10/19/21 00:00 37.4 C 74 18 122/69 94 10/18/21 22:18 81 10/18/21 20:28 37.2 C 81 20 134/72 94
[2021-10-19] MEDS: PANTOprazole 40 MG in SYRINGE 0 ML IV SCH ×2 (08:18→20:53)
[2021-10-19] MEDS: DOCUSATE SODIUM 100 MG CAP PO SCH ×2 (08:54→20:53)
[2021-10-19] MEDS: POLYETHYLENE (MIRALAX) 17 GM PACK PO SCH (08:54)
--- NOTE | 2021-10-19 10:06 | Gastroenterology Progress Note ---
Date of Service October 19, 2021 Assessment & Plan (1) Necrotizing pancreatitis: (2) Pancreatic pseudocyst: Plan: Continue to recommend transfer to a tertiary care center for pancreatic necrosectomy. Because at this time accepted to [facility] but no bed available, will go forward with a clear liquid diet (has had just sips/chips thus far). Appreciate primary services correction of INR to therapeutic range for port/splenic vein thrombus. Continue IV fluids, analgesics. Admission and Anticipated Discharge Date Admission Date: October 18, 2021 Supervising Physician Co-Signing Physician Notes I saw and evaluated the patient this afternoon. He notes that his abdominal pain is persisting but seem to be somewhat better than yesterday. Given his history of a complicated necrotizing pancreatitis and imaging study I think he would be best off at a tertiary care center where a determination for pseudocyst drainage could be made. As there is evidence of pancreatic necrosis pseudocyst drainage can be quite difficult in this case and would be best left to a tertiary care center where these interventions are done more often. Subjective Mr. Castro is a 36 yr old male. Pancreatitis in Jun 2021, pseudocyst formation. Presented to ED for N/V, increased pain yesterday. CT with enlarging complex pancreas body/tail cyst. Today, pt says abd pain is a little better but still significant. Review of Systems Review of Systems: ROS: Gen: mild weakness, + weight loss; no fevers Eyes: No eye redness, or pain, no recent vision changes Resp: No SOB, no cough Cardio: No palpitations/irregular beats, no chest pain GI: as per HPI, otherwise (-) : Denies pain on urination Skin: No jaundice, itching or new rashes Physical Exam Constitutional: well developed, + ill appearing, + thin and cooperative Eyes: PERRL, conjunctivae normal, anicteric sclerae Respiratory: normal respiratory effort and able to speak in complete sentences; no respiratory distress, no labored breathing, does not use accessory muscles and no cough Cardiovascular: RRR, no murmur, no edema Gastrointestinal (Abdomen): Inspection/Auscultation: abdomen normal to inspection and + hypoactive bowel sounds; abdomen not distended and no abdominal edema Percussion/Palpation: + abdomen tender (moderately tender over the enitre upper abd) and abdomen soft; no ascites Skin: no rashes, warm and dry Neurologic: PERRL, EOMI, accommodation nl, no face palsy, no dysarthria jacky ke; not confused Psychiatric: A+Ox3, euthymic affect Lymphatic: no cervical or axillary lymphadenopathy Results & Data ([facility]) Vital Signs (Past 12 Hours) Vital Signs Temp Pulse Pulse Resp BP Pulse Ox 10/19/21 09:36 73 10/19/21 07:00 36.9 C 75 20 125/67 93 10/19/21 04:23 36.8 C 71 18 124/80 10/19/21 00:00 37.4 C 74 18 122/69 94 10/18/21 22:18 81 Laboratory Results WBC 7.8, Hb 10, Hct 32, Pts 243, PT 19, INR 2.0, Na 134, K 3.3, Cl 103, CO2 18, BUN 7, Cr 0.42, glucose 61.Lipase 255 yesterday. Diagnostic Findings CTAP 10/18/21: 1. Worsening necrotizing pancreatitis with combined peripancreatic and parenchymal necrosis. 2. Increased size, attenuation and complexity of the multiloculated fluid col lection within the expected location of the pancreatic body and tail now measuring over 10 cm in greatest dimension suggestive of walled-off pancreatic necrosis, likely with associated internal hemorrhagic and proteinaceous debris. 3. There is narrowing of the portal splenic confluence secondary to extrinsic mass effect. A partially occlusive thrombus would be difficult to exclude. Attention at follow-up recommended. 4. Progressively worsened mesenteric edema with abdominal pelvic ascites. 5. Periportal and pericaval adenopathy is noted in addition to mild wall thickening of the stomach and duodenum, likely reactive. 6. Hepatic steatosis. 7. Trace pleural effusions with mild dependent bibasilar consolidation.
[2021-10-19] MEDS: POTASSIUM CHLORIDE 10 MEQ in SODIUM CHLORIDE 0.9% 1000ML 1,000 ML IV SCH (15:45)
--- NOTE | 2021-10-19 18:03 | Billing Data ---
Date of Service October 19, 2021 Coding Level of Care Code 44990 Initial Inpt Care Lvl 3
--- NOTE | 2021-10-19 19:01 | Billing Data ---
Date of Service October 19, 2021 Coding Level of Care Code D/C DAY MANAGEMENT <30 MINS Comment disregard [id number]
--- NOTE | 2021-10-19 19:48 | Discharge Summary ---
Date of Service October 19, 2021 Admission HPI Per Admitting Provider This is a 36-year-old gentleman with a history of alcohol use disorder currently in remission, previous bouts of alcoholic pancreatitis w/ evidence of pseudocysts and necrosis on previous scans, recently diagnosed ?venous thrombus somewhere within his renal-portal circulation (per his report), GERD, and hypertension who presented to [facility] for evaluation of abdominal pain. Per patient this is been ongoing for about 2 days. He describes it as severe and epigastric in location. Describes it as a gnawing- type sensation, deep. He says that he has had several bouts of nausea with vomiting since that time. Describes one episode of blood-streaked vomitus while he was here in the ER, none previously. Has not been able to eat/drink for about 1.5 days since this has all began. Patient was actually in [facility] [place] [facility] earlier yesterday for evaluation of this pain, but left before management could be pursued. He says he has been urinating normally, but it has been more dark appearing than usual. He endorses passing gas. Of note, patient does note that he is being seen by Kenneth Bowers for evaluation of his chronic pancreatitis. He said that he was recently diagnosed with a "blood clot between my liver and kidney" and subsequently started on warfarin. He was told a few days ago that his INR was at 5; as such, he was told to hold his warfarin for another couple days. Patient has a history of alcohol use disorder and is currently in remission, since the end of August. He denies recent use or relapse. He denies any use of recreational drugs. He does endorse smoking about half a pack a day for the last number of years. In the ED, patient was found to be normotensive and mildly tachycardic. His labs were significant for a white count of 13 with left shift. His lipase was elevated at 255. CT of the abdomen and pelvis with contrast demonstrates evidence of pancreatic necrosis in the body and tail of the pancreas, as well as a loculated fluid collection within this area that is become enlarged and more ill-defined; further, radiologist noted presence of a fluidfluid level in the pancreatic tail, as well as peripancreatic infiltration/inflammation, and small to moderate amount of ascites. He was given a 1 L bolus of IV fluids, started on maintenance fluids, and also given morphine and Dilaudid for pain control. Emergency physician called the on-call GI physician to review these findings; the recommended monitoring until the a.m. and reassessing at that time. Discharge Data Allergies Allergy/AdvReac Type Severity Reaction Status Date / Time No Known Allergies Allergy Unverified 10/18/21 00:40 Consultations 10/18/21 01:43 ED Decision to Admit Stat 10/18/21 02:54 Consult Gastroenterology Routine 10/18/21 10:51 Burn CD for patient Routine Ordered Studies 10/17/21 23:49 CT abd pelvis IV con only Urgent Hospital Course (1) Pancreatitis: This is a 36-year-old gentleman with a history of alcohol use disorder currently in remission, previous bouts of alcoholic pancreatitis w/ evidence of pseudocysts and necrosis on previous scans, recently diagnosed ?venous thrombus somewhere within his renal-portal circulation (per his report), GERD, and hypertension who presented to [facility] for evaluation of abdominal pain, subsequently found to have evidence on imaging concerning for pancreatitis and enlarging adjacent fluid collections -- in the setting of previously elevated INR and recent initiation on Warfarin. Recurrent Pancreatitis in Setting of Known Pancreatic Necrosis / Enlarging Adjacent Pancreatic Fluid Collection Patient with previous history of significant alcohol use disorder, currently in remission, and previous bouts of alcoholic pancreatitis; now with known baseline of pancreatic necrosis CT abdomen pelvis (stat rad) demonstrating " Previously seen loculated fluid collection in the pancreatic body and tail that has enlarged and become more ill-defined and heterogeneous with areas of high density. In the more distal portion in the pancreatic tail, there is now a fluidfluid level There is some persistent infiltration in the peripancreatic fat" Primary concern that the appearance of this enlarging fluid collection may represent hemorrhage (in setting of supratherapeutic INR), infection, or both Emergency physician spoke with on-call [facility] physician, who did recommend observing through the night -- Consult [facility] GI: appreciate recommendations, indications for IR drainage/sampling of this fluid, and timeframe of doing such Continue mIVF @ 150cc/hr -- s/p 2L in ED Given concern for possible infectious etiology of fluid collection / elevated WBCs: Unasyn q6h N.p.o. for now, consider advancing after GI evaluation (?in case of need for procedure) and symptoms improve Single Episode of Hematemesis Patient reporting one-time episode of blood-streaked vomitus that occurred 10/18 while in the ED Insetting of frequent vomiting over the last several days with acute episode of pancreatitis Suspect most likely inflammation/mild esophageal tear -- patient does NOT have known h/o cirrhosis GI consulted, as above Protonix 40 mg twice daily IV for now, transition back to home PPI when appropriate H&H stable. Monitor VS. CBC in a.m. N.p.o. Supratherapeutic INR Insetting of known venous thrombus ("between kidneys and liver"), per patient, for which he recently started taking warfarin Vitamin K 5 mg p.o. X1 Hold warfarin Monitor for bleeding INR every morning History of Venous Thrombus Per patient, was discovered on a scan taken by his outpatient GI provider on 10/08 -- specifics of this clot, other than where patient localizes it, is unknown at this time Attempt to obtain outpatient records Unclear how much this has been worked up as an outpatient already: Patient already on warfarin, may want to consider hypercoagulability work-up Hold home warfarin Mood disorder Hold home medication (Seroquel) until reevaluated in a.m. for intake abilities Dispo: MedSurg with telemetry Diet: N.p.o. Prophylaxis: Supratherapeutic INR. Hold home warfarin. Consider SCDs moving forward. Code: Full code. (2) Pancreatic pseudocyst: (3) Hepatic steatosis: (4) GERD (gastroesophageal reflux disease): (5) Hypertension: (6) Necrotizing pancreatitis: (7) Acute epigastric pain: (8) Nausea: Discharge Plan Discharge Items Patient Disposition: Transfer Acute Care Hospital Reason For Visit: NECROTIZING PANCREATITIS Discharge Diagnosis: Necrotizing pancreatitis Activity: Resume your previous activity Non-emergency contact: Primary Care Provider, [employer] Call non-emergency contact if: your symptoms worsen, your pain is not controlled and you have a fever Follow-up/Referrals: PCP,NO [Primary Care Provider] - Diet: Nothing by Mouth Addtl Attending Provider Instructions: Necrotizing pancreatitis Patient with previous history of significant alcohol use disorder, currently in remission, and previous bouts of alcoholic pancreatitis; now with known pancreatic necrosis seen on imaging CT abdomen: Worsening necrotizing pancreatitis with combined peripancreatic and parenchymal necrosis; increased size, attenuation, and complexity of the multiloculated fluid collection within the expected location of the pancreatic body and tail now measuring over 10cm in greatest dimension, suggestive of walled-off pancreatitic necrosis, likely with associated internal hemorrhagic and proteinaceous debris Evaluated by [facility] who recommended transfer to OSH for pancreatic necrosectomy Continue mIVF @ 150cc/hr Given concern for possible infectious etiology of fluid collection / elevated WBCs: Unasyn q6h NPO Hematemesis Patient reporting one-time episode of blood-streaked vomitus that occurred 10/18 while in the ED In the setting of frequent vomiting over the last several days with acute episode of pancreatitis Suspect most likely inflammation/mild esophageal tear -- patient does NOT have known h/o cirrhosis GI consulted, as above Protonix 40mg IV bid H&H stable NPO as above Supratherapeutic INR In the setting of known venous thrombus ("between kidneys and liver"), per patient, for which he recently started taking warfarin Vitamin K 5mg PO x1 administered Hold warfarin Monitor for bleeding Trend INR History of DVT Per patient, was discovered on a scan taken by his outpatient GI provider on 10/08 -- specifics of this clot, other than where patient localizes it, is unknown at this time Attempt to obtain outpatient records Unclear how much this has been worked up as an outpatient already: patient already on warfarin, may want to consider hypercoagulability work-up Hold home warfarin Mood disorder Home seroquel held at this time Pending Studies at Discharge: No Stand-Alone Forms: [facility] Patient informed of condition?: Yes DNR: No Discharge Level of Care: Other Communicable Disease: No Discharge Prognosis: Stable Lines: None Urinary Catheter: No Medications and DC Order Prescriptions: Continued pantoprazole 40 mg tablet,delayed release (DR/EC) 40 mg PO BID RF: 0 warfarin 5 mg tablet 5 - 10 mg PO DIRECTED RF: 0 quetiapine [Seroquel] 50 mg tablet 50 mg PO BID RF: 0 Discharge Orders: Discharge Order (Routine); Ordered 10/19/21 Ordered By: Marc James Admission Data Admit Date/Time: 10/18/21 01:59 Attending Provider: Albino Ybarra Admit Provider: Albino Boyd Primary Care Provider: PCP,NO Other Providers: Ad Bob ; Forest Salcido ; Erika Lea ; Carlitos Mcfarlane ; Lorenza Arthur ; Ever Lynne ; Lauren Lin ; Michael Donis ; Toni Hernandez ; Jodie Tracy ; Melania Morocho ; Chloe Mendoza ; Geovanna Paez ; Yevgeniy Aguilar
[2021-10-20] MEDS: POTASSIUM CHLORIDE 10 MEQ in SODIUM CHLORIDE 0.9% 1000ML 1,000 ML IV SCH ×2 (00:22→08:07)
[2021-10-20] MEDS: AMPICILLIN/SULBACTAM SOD 3,000 MG in 0.9 % SODIUM CHLORIDE 100 ML IV SCH ×2 (03:01→08:07)
[2021-10-20] MEDS: HYDROmorphone INJ 1 MG/ML SYRINGE IV PRN ×3 (03:04→09:38)
[2021-10-20 03:13] VITALS: O2SAT 96
[2021-10-20 07:40] LABS: Basophils # (auto) 0.01 K/uL (0-0.2); Basophils % (auto) 0.2 %; Eosinophils % (auto) 7.9 %; Hematocrit (blood only) 32.7 % (42-52); Hemoglobin 11.2 g/dL (14.0-18.0); Lymphocytes # (auto) 1.54 K/uL (1.2-3.4); Lymphocytes % (auto) 24.3 %; Mean Corpuscular Hemoglobin 29.5 pg (25-34); Mean Corpuscular Hgb Conc 34.3 g/dL (32-36); Mean Corpuscular Volume 86.1 fL (80-100); Mean Platelet Volume 10.8 fL (7.4-10.4); Monocytes # (auto) 0.41 K/uL (0.11-0.59); Monocytes % (auto) 6.5 %; Neutrophils # (auto) 3.89 K/uL (1.4-6.5); Neutrophils % (auto) 61.1 %; Platelet Count 250 K/uL (130-400); RDW Coefficient of Variation 14.2 % (11.5-14.5); White Blood Count 6.35 K/uL (4.8-10.8)
[2021-10-20 07:53] LABS: INR 1.9 (0.9-1.1); Prothrombin Time 18.4 Seconds (9.0-12.0)
[2021-10-20] MEDS: POLYETHYLENE (MIRALAX) 17 GM PACK PO SCH (08:07)
[2021-10-20] MEDS: DOCUSATE SODIUM 100 MG CAP PO SCH (08:07)
[2021-10-20] MEDS: PANTOprazole 40 MG in SYRINGE 0 ML IV SCH (08:07)
[2021-10-20 08:09] VITALS: BP 137/86; PULSE 62; TEMP 98.2
[2021-10-20 08:18] LABS: Alanine Aminotransferase 7 U/L (7-52); Alkaline Phosphatase 67 U/L (34-104); Anion Gap 8 (3-11); Aspartate Aminotransferase 13 U/L (13-39); BUN Creatinine Ratio 8.1 (10-20); Bilirubin,Total 0.5 mg/dl (0.2-1.0); Blood Urea Nitrogen 3 mg/dl (6-23); Calcium 8.3 mg/dl (8.5-10.1); Carbon Dioxide 24 mmol/L (21-32); Chloride 104 mmol/L (98-107); Creatinine Clr Calc Pharmacy 287.7 ml/min; Est GFR (African American) > 150.0 ml/min; Est GFR (Non-African American) > 150.0 ml/min; Glucose 103 mg/dl (70-99(Fasting)); Lipase 77 U/L (11-82); Sodium 136 mmol/L (136-145)
[2021-10-20] MEDS ORDERED: POTASSIUM PHOS 3 MMOL/1 ML INFUSION IV STA (08:58)
[2021-10-20] MEDS ORDERED: POTASSIUM PHOSPHATE 15 MMOL in DEXTROSE 5% 250 ML IV ONE (09:30)
--- NOTE | 2021-10-20 10:35 | Discharge Summary ---
Date of Service October 20, 2021 Admission HPI Per Admitting Provider This is a 36-year-old gentleman with a history of alcohol use disorder currently in remission, previous bouts of alcoholic pancreatitis w/ evidence of pseudocysts and necrosis on previous scans, recently diagnosed ?venous thrombus somewhere within his renal-portal circulation (per his report), GERD, and hypertension who presented to [facility] for evaluation of abdominal pain. Per patient this is been ongoing for about 2 days. He describes it as severe and epigastric in location. Describes it as a gnawing- type sensation, deep. He says that he has had several bouts of nausea with vomiting since that time. Describes one episode of blood-streaked vomitus while he was here in the ER, none previously. Has not been able to eat/drink for about 1.5 days since this has all began. Patient was actually in the [facility] earlier yesterday for evaluation of this pain, but left before management could be pursued. He says he has been urinating normally, but it has been more dark appearing than usual. He endorses passing gas. Of note, patient does note that he is being seen by Kenneth Bowers for evaluation of his chronic pancreatitis. He said that he was recently diagnosed with a "blood clot between my liver and kidney" and subsequently started on warfarin. He was told a few days ago that his INR was at 5; as such, he was told to hold his warfarin for another couple days. Patient has a history of alcohol use disorder and is currently in remission, since the end of August. He denies recent use or relapse. He denies any use of recreational drugs. He does endorse smoking about half a pack a day for the last number of years. In the ED, patient was found to be normotensive and mildly tachycardic. His labs were significant for a white count of 13 with left shift. His lipase was elevated at 255. CT of the abdomen and pelvis with contrast demonstrates evidence of pancreatic necrosis in the body and tail of the pancreas, as well as a loculated fluid collection within this area that is become enlarged and more ill-defined; further, radiologist noted presence of a fluidfluid level in the pancreatic tail, as well as peripancreatic infiltration/inflammation, and small to moderate amount of ascites. He was given a 1 L bolus of IV fluids, started on maintenance fluids, and also given morphine and Dilaudid for pain control. Emergency physician called the on-call GI physician to review these findings; the recommended monitoring until the a.m. and reassessing at that time. Admission Exam Per Admitting Provider General: Well-appearing 36-year-old gentleman in no acute distress HEENT: NCAT. Trachea midline. No JVD Cardiac: Normal rate, regular rhythm. S1 and S2 are present without murmurs rubs or gallops Cardiac: Good respiratory effort with symmetric expansion of the chest, lungs are clear to auscultation bilaterally without crackles or wheezes Abdominal: NABS. Abdomen is mildly distended and mild amount of fluid wave is appreciated. There is tenderness to palpation in the epigastric region. There is no rebound or guarding Extremities: No peripheral edema Neurologic: Alert and oriented x4. Movement of limbs is symmetric. Principal Diagnosis Necrotizing pancreatitis Discharge Exam Constitutional: well-appearing, no acute distress HEENT: NCAT, no scleral icterus, MMM CV: regular rhythm, no murmur appreciated, extremities well-perfused, no LE edema Resp: CTABL, no wheezes/rales/rhonchi appreciated, no increased work of breathing GI: soft, nondistended, moderate tenderness of the epigastrium, RUQ, and LUQ, mild tenderness of RLQ and LLQ, no rebound tenderness or guarding, BS present MSK: no gross deformities appreciated Skin: warm, dry, no rash appreciated Neuro: alert, oriented, no focal neurologic deficit appreciated Discharge Data Allergies Allergy/AdvReac Type Severity Reaction Status Date / Time No Known Allergies Allergy Unverified 10/18/21 00:40 Consultations 10/18/21 01:43 ED Decision to Admit Stat 10/18/21 02:54 Consult Gastroenterology Routine 10/18/21 10:51 Burn CD for patient Routine Ordered Studies 10/17/21 23:49 CT abd pelvis IV con only Urgent Hospital Course (1) Pancreatitis: Necrotizing pancreatitis Patient with previous history of significant alcohol use disorder, currently in remission, and previous bouts of alcoholic pancreatitis; now with known baseline of pancreatic necrosis CT abdomen pelvis (stat rad) demonstrating " Previously seen loculated fluid collection in the pancreatic body and tail that has enlarged and become more ill-defined and heterogeneous with areas of high density. In the more distal portion in the pancreatic tail, there is now a fluidfluid level There is some persistent infiltration in the peripancreatic fat" Primary concern that the appearance of this enlarging fluid collection may represent hemorrhage (in setting of supratherapeutic INR), infection, or both GI consult recommends transfer to [facility] for pancreatic necrosectomy Continue mIVF @ 150cc/hr -- s/p 2L in ED Given concern for possible infectious etiology of fluid collection, continue unasyn NPO Hematemesis Patient reporting one-time episode of blood-streaked vomitus that occurred 10/18 while in the ED Insetting of frequent vomiting over the last several days with acute episode of pancreatitis Suspect most likely inflammation/mild esophageal tear -- patient does NOT have known h/o cirrhosis GI consulted, as above Continue protonix H&H stable Trend CBC Supratherapeutic INR In the setting of known venous thrombus ("between kidneys and liver"), per patient, for which he recently started taking warfarin (goal INR 2-3) INR 9.5 on admission; has since improved to 2.0 Hold warfarin pending pancreatic necrosectomy No signs of coagulopathy during this admission Trend INR History of DVT Per patient, was discovered on a scan taken by his outpatient GI provider on 10/08 -- specifics of this clot, other than where patient localizes it, is unknown at this time Unclear how much this has been worked up as an outpatient already: Patient already on warfarin, may want to consider hypercoagulability work-up Hold home warfarin Mood disorder Continue home seroquel (2) Pancreatic pseudocyst: (3) Hepatic steatosis: (4) GERD (gastroesophageal reflux disease): (5) Hypertension: (6) Necrotizing pancreatitis: (7) Acute epigastric pain: (8) Nausea: Total Time Total Time Spent Total Time Spent (In Minutes): see attending documentation Discharge Plan Discharge Items Patient Disposition: Transfer Acute Care Hospital Reason For Visit: NECROTIZING PANCREATITIS Discharge Diagnosis: Necrotizing pancreatitis Activity: Resume your previous activity Non-emergency contact: Primary Care Provider, Surgeon and Animal Hospital Clerk Call non-emergency contact if: your symptoms worsen, your pain is not controlled and you have a fever Follow-up/Referrals: PCP,NO [Primary Care Provider] - Diet: Nothing by Mouth Addtl Attending Provider Instructions: Necrotizing pancreatitis Patient with previous history of significant alcohol use disorder, currently in remission, and previous bouts of alcoholic pancreatitis; now with known pancreatic necrosis seen on imaging CT abdomen: Worsening necrotizing pancreatitis with combined peripancreatic and parenchymal necrosis; increased size, attenuation, and complexity of the multiloculated fluid collection within the expected location of the pancreatic body and tail now measuring over 10cm in greatest dimension, suggestive of walled-off pancreatitic necrosis, likely with associated internal hemorrhagic and proteinaceous debris Evaluated by [facility] who recommended transfer to OSH for pancreatic necrosectomy Continue mIVF @ 150cc/hr Given concern for possible infectious etiology of fluid collection / elevated WBCs: Unasyn q6h NPO Hematemesis Patient reporting one-time episode of blood-streaked vomitus that occurred 10/18 while in the ED In the setting of frequent vomiting over the last several days with acute episode of pancreatitis Suspect most likely inflammation/mild esophageal tear -- patient does NOT have known h/o cirrhosis GI consulted, as above Protonix 40mg IV bid H&H stable NPO as above Supratherapeutic INR In the setting of known venous thrombus ("between kidneys and liver"), per patient, for which he recently started taking warfarin Vitamin K 5mg PO x1 administered Hold warfarin Monitor for bleeding Trend INR History of DVT Per patient, was discovered on a scan taken by his outpatient GI provider on 10/08 -- specifics of this clot, other than where patient localizes it, is unknown at this time Attempt to obtain outpatient records Unclear how much this has been worked up as an outpatient already: patient already on warfarin, may want to consider hypercoagulability work-up Hold home warfarin Mood disorder Home seroquel held at this time Pending Studies at Discharge: No Stand-Alone Forms: My [facility] Skilled Items Patient informed of condition?: Yes DNR: No Discharge Level of Care: Other Communicable Disease: No Discharge Prognosis: Stable Lines: None Urinary Catheter: No Medications and DC Order Prescriptions: Continued pantoprazole 40 mg tablet,delayed release (DR/EC) 40 mg PO BID RF: 0 warfarin 5 mg tablet 5 - 10 mg PO DIRECTED RF: 0 quetiapine [Seroquel] 50 mg tablet 50 mg PO BID RF: 0 Discharge Orders: Discharge Order (Routine); Ordered 10/19/21 Ordered By: Marc James Admission Data Admit Date/Time: 10/18/21 01:59 Attending Provider: Albino Ybarra Admit Provider: Albino Boyd Primary Care Provider: PCP,NO Other Providers: Ad Bob ; Forest Salcido ; Erika Lea ; Carlitos Mcfarlane ; Lorenza Arthur ; Ever Lynne ; Lauren Lin ; Michael Donis ; Toni Hernandez ; Jodie Tracy ; Melania Morocho ; Chloe Mendoza ; Geovanna Paez ; Yevgeniy Aguilar Other Interventions: Discharge Summary Assessment (RN) Last Done: 10/20/21 09:52 Supervising Physician Co-Signing Physician Notes Chart reviewed. Patient transferred prior to my being able to see him. Agree with transfer and as above Resident Activity Tracking Resident Involvement: Resident Care Provided Care Provided: Adult Hospital Medicine
--- NOTE | 2021-11-02 14:49 | Coding Query ---
CODING QUERY To promote full compliance with coding requirements relating to patient care, provider participation is requested in all cases of venetian blind installer uncertainty. Please assist us with the question(s) below: Coding Question(s): The 10/18 Progress Note documents, "recently diagnosed portal venous thrombus (per patient)", and , "warfarin (taking for recently found portal venous thrombus) being held", and, "abdominal pain about the same last few days- abruptly worsened about 3 days ago (about 2 days before admission) - worsening was about a week after dx of portal vein thrombosis - which was found incidentally on a CT that was to follow up eval of pancreas. no new symptoms at the time of portal vein thrombosis dx", and the 10/19 Progress Note document, "Portal vein thrombosis - 2.0 on 10/19 s/p 5 mg vit K on 10/18 - warfarin held because of supratherapeutic INR on admission - 8.3 on 10/17, 9.5 on 10/18 - continue holding warfarin in setting of potential emergent surgery, consider lovenox if INR drops below 1.5", and, "Portal vein thrombosisINR now corrected to 2. With procedure upcomingwe will hold on resuming Coumadin at this time", and the Discharge Summary documents, "Supratherapeutic INR In the setting of known venous thrombus ("between kidneys and liver"), per patient, for which he recently started taking warfarin (goal INR 2-3) INR 9.5 on admission; has since improved to 2.0 Hold warfarin pending pancreatic necrosectomy No signs of coagulopathy during this admission Trend INR History of DVT Per patient, was discovered on a scan taken by his outpatient GI provider on 10/08 -- specifics of this clot, other than where patient localizes it, is unknown at this time Unclear how much this has been worked up as an outpatient already: Patient already on warfarin, may want to consider hypercoagulability work-up Hold home warfarin". Please specify below, in your clinical opinion: ( x ) Possible Portal Vein Thrombosis was monitored/treated during this admission ( ) Unspecified venous thrombus was treated/monitored during this admission ( ) Other Venous Thrombus was monitored/treated during this admission. Please Specify ( ) No Venous Thrombus was monitored/treated during this admission Physician's Response(s): Thank you Yaritza Seay Principal Diagnosis: "that condition established after study, to be chiefly responsible for occasioning the admission of the patient to the hospital for care." Co-Existing Principal Diagnosis: "when two or more diagnoses equally meet the criteria for principal diagnosis as determined by the circumstances of admission, diagnostic work up, and/or therapy provided, and the Alphabetic Index, Tabular List, or another coding guideline does not provide sequencing direction, any one of the diagnoses may be sequenced first." "When the physician has documented what appears to be a current diagnosis in the body of the record, but has not included the diagnosis in the final diagnostic statement, the physician should be asked whether the diagnosis should be added." (Source Coding Clinic 2 QTR90. p3-4) MIKE
== END 2021-10-20 09:52 | disposition short-term general hospital (02) | DRG 438 ==
LOC: ED 22:00 → SUATTDRO 10-18 01:59 → 3N 10-18 01:59 → 2N 10-18 17:37

== ENCOUNTER 2022-03-31 13:17 | Inpatient (IN) ==
[2022-03-31] MEDS ORDERED: ONDANSETRON INJ 2 MG/ML 2 ML VIAL IV STA ×2 (13:33→14:33)
[2022-03-31] MEDS ORDERED: SODIUM CHLORIDE 0.9% 500 ML IV STA (13:33)
[2022-03-31] MEDS ORDERED: MoRPHine SULFATE 4 MG/ML 1 ML CARP\\VIAL IV STA (14:33)
[2022-03-31 14:58] LABS: Basophils # (auto) 0.03 K/uL (0-0.2); Basophils % (auto) 0.3 %; Eosinophils # (auto) 0.02 K/uL (0-0.50); Eosinophils % (auto) 0.2 %; Hematocrit (blood only) 46.6 % (40.1-51.0); Immature Granulocytes # (auto) 0.05 K/uL (0.00-0.02); Immature Granulocytes % (auto) 0.5 %; Lymphocytes # (auto) 0.89 K/uL (1.2-3.4); Lymphocytes % (auto) 8.2 %; Mean Corpuscular Hemoglobin 32.3 pg (25.0-34.0); Mean Corpuscular Hgb Conc 36.5 g/dL (32.0-36.0); Mean Corpuscular Volume 88.6 fL (80.0-100.0); Mean Platelet Volume 10.1 fL (9.4-12.4); Monocytes # (auto) 0.86 K/uL (0.24-0.82); Monocytes % (auto) 7.9 %; Neutrophils # (auto) 8.98 K/uL (1.4-6.5); Neutrophils % (auto) 82.9 %; Platelet Count 251 K/uL (130-400); RDW Coefficient of Variation 14.5 % (11.5-14.5); RDW Standard Deviation 44.6 fL (36.4-46.3); Red Blood Count 5.26 M/uL (4.63-6.08); White Blood Count 10.83 K/ul (4.8-10.8)
--- NOTE | 2022-03-31 15:06 | Emergency Department Note ---
History of Present Illness General Chief Complaint: Abdominal Pain Stated Complaint: PANCREATITIS Time Seen by Provider: 03/31/22 14:19 History of Present Illness Provider Complaint: abdominal pain Onset (ago): 1 day(s) Pain Consistency: constant Location: epigastric Migration to: no migration Severity: severe Maximum Pain Intensity: 9 Current Pain Intensity: 9 Quality: + stabbing, + aching, + sharp and + dull Relieved By: + nothing Exacerbated By: + nothing Context: + history of similar episodes (pancreattiis); no foreign travel, no possible food poisoning, no sick contacts, no recent antibiotic use, no recent surgery/procedure or no recent injury Associated Symptoms: + nausea and + vomiting; no diarrhea, no fever, no chills, no constipation, no dysuria, no hematemesis, no hematochezia, no melena, no hematuria, no anorexia, no syncope, no headache, no neck pain, no back pain, no chest pain, no weakness, no breathing difficulty and no numbness Home Medications Medication Instructions Recorded Confirmed Type pantoprazole 40 mg tablet,delayed 40 mg PO BID 09/03/21 10/18/21 History release quetiapine 50 mg tablet (Seroquel) 50 mg PO BID 10/18/21 10/18/21 History warfarin 5 mg tablet 5 - 10 mg PO DIRECTED 10/18/21 10/18/21 History Allergies Allergy/AdvReac Type Severity Reaction Status Date / Time No Known Allergies Allergy Unverified 10/18/21 00:40 Past Med/Surg History Medical History Alcohol use disorder GERD (gastroesophageal reflux disease) History of alcohol abuse Hypertension No pertinent family history Pseudocyst of pancreas Recurrent pancreatitis Surgical History No pertinent past surgical history Social History Smoking Status: Current every day smoker Tobacco Type: Cigarettes Hx Alcohol Use: No Hx Substance Use: No Preferred Language: Cape Verdean Communication Ability: Effective Integration Software Developer Required: No Beliefs That Will Affect Care: None Current Living Situation: Parent Feels Safe at Home: Yes Assistive Devices: None Review of Systems A total of 10 systems reviewed and were otherwise negative Physical Exam Vital Signs: Vital Signs - 24 hr 03/31/22 13:29 03/31/22 14:27 03/31/22 15:56 Temperature 36.7 C Temperature Source Temporal Artery Sc an Pulse Rate 82 Pulse Rate [Apical ] 83 67 Pulse Rhythm Regular Pulse Rhythm [Apic al] Regular Pulse Strength Normal Respiratory Rate 16 18 18 Respiratory Effort / Characteristics Non-Labored Sponta neous Non-Labored Sponta neous Non-Labored Respiratory Depth Normal Normal Normal Respiratory Patter n Regular Regular Blood Pressure 176/119 H Blood Pressure [Le ft Arm] 179/120 H 173/112 H Blood Pressure Lynette n 138 Blood Pressure Lynette n [Left Arm] 139 132 Blood Pressure Pos ition Sitting Blood Pressure Pos ition [Left Arm] Lying Pulse Oximetry 97 96 98 Oxygen Delivery Me thod Room Air Room Air Room Air Sepsis Recent Feve r Within 48 Hours No Sepsis New/Unexpla ined Change in Men spenser Status No Sepsis Action Take n by Nursing No Action Required Physical Exam: Physical Exam GENERAL: He is oriented to person, place, and time. He appears well-developed and well-nourished. He does not appear distressed. HENT: Exam performed. - Head: Normocephalic and atraumatic. - Right Ear: External ear normal. No mastoid tenderness. - Left Ear: External ear normal. No mastoid tenderness. - Mouth/Throat: The oropharynx is clear and moist. No trismus in the jaw. No dental abscesses or uvula swelling. No oropharyngeal exudate or tonsillar abscesses. EYES: Conjunctivae and EOM are normal. Pupils are equal, round, and reactive to light. Right eye exhibits no discharge. Left eye exhibits no discharge. No scleral icterus. NECK: Normal range of motion. Neck supple. No JVD present. No spinous process tenderness present. No carotid bruit present. No rigidity. No tracheal deviation and normal range of motion present. No Brudzinski's sign and no Kernig's sign noted. CV: Normal rate, regular rhythm, normal heart sounds and intact distal pulses. There is no peripheral edema. Palpable radial pulses bue. PULM/CHEST: Effort normal and breath sounds normal. No respiratory distress. No stridor. He has no wheezes. He has no rales. - Chest Wall: He exhibits no tenderness. ABD: The abdomen is soft. Bowel sounds are normal. He has no distension. No mass is present. There is tenderness to palpation of the epigastric area. There is no rebound, no guarding, no Tadeo's sign and no tenderness at McBurney's point. Rovsig negative. MUSC/SKEL: Normal range of motion. There is no peripheral edema, tenderness or deformity. LYMPH: No cervical adenopathy. NEURO: He is alert and oriented to person, place, and time. He has normal strength. No cranial nerve deficit or sensory deficit. Coordination and gait normal. GCS eye subscore is 4. GCS verbal subscore is 5. GCS motor subscore is 6. Cerebellar tests wnl. SKIN: Skin is warm and dry. He is not diaphoretic. PSYCH: He has a normal mood and affect. Behavior is normal. Judgment and thought content normal. Course Course 1419: The patient was evaluated in room A12. A complete history and physical exam was performed Cardiac monitoring: An order was placed for continuous cardiac monitoring. The monitor shows a rate of 80 with sinsu rhythm 1540: Vital signs stable. Labs show a lipase of 841 patient will be admitted to [facility] hospitalist Dr. Gardiner notified. Administered Medications Discontinued Medications Sodium Chloride (Nss) 500 mls @ 999 mls/hr IV .Q31M STA Stop: 03/31/22 14:03 Last Infusion: 03/31/22 15:15 Dose: 0 mls/hr Documented By: Admin: 03/31/22 14:46 Dose: 999 mls/hr Documented By: YESI Ketorolac Tromethamine (Ketorolac Tromethamine 15 Mg/Ml Vial) 15 mg IV NOW STA Stop: 03/31/22 15:38 Last Admin: 03/31/22 15:56 Dose: 15 mg Documented By: KLAUDIA Morphine Sulfate (Morphine Sulfate 4 Mg/Ml 1 Ml Carp\Vial) 4 mg IV NOW STA Stop: 03/31/22 14:34 Last Admin: 03/31/22 14:46 Dose: 4 mg Documented By: YESI Ondansetron HCl (Ondansetron Inj 2 Mg/Ml 2 Ml Vial) 4 mg IV NOW STA Stop: 03/31/22 13:34 Last Admin: 03/31/22 14:46 Dose: 4 mg Documented By: YESI Ondansetron HCl (Ondansetron Inj 2 Mg/Ml 2 Ml Vial) 4 mg IV NOW STA Stop: 03/31/22 14:34 Last Admin: 03/31/22 14:48 Dose: Not Given Documented By: YESI Medical Decision Making Laboratory Data Result diagrams: 03/31/22 14:31 03/31/22 14:31 Lab Results 03/31/22 03/31/22 Range/Units 14:31 14:31 WBC 10.83 H (4.8-10.8) K/ul RBC 5.26 (4.63-6.08) M/uL Hgb 17.0 (14.0-18.0) g/dl Hct 46.6 (40.1-51.0) % MCV 88.6 (80.0-100.0) fL MCH 32.3 (25.0-34.0) pg MCHC 36.5 H (32.0-36.0) g/dL RDW Std Deviation 44.6 (36.4-46.3) fL RDW Coeff of Gay 14.5 (11.5-14.5) % Plt Count 251 (130-400) K/uL MPV 10.1 (9.4-12.4) fL Immature Gran % (Auto) 0.5 % Neut % (Auto) 82.9 % Lymph % (Auto) 8.2 % Towner % (Auto) 7.9 % Eos % (Auto) 0.2 % Baso % (Auto) 0.3 % Neut # (Auto) 8.98 H (1.4-6.5) K/uL Lymph # (Auto) 0.89 L (1.2-3.4) K/uL Towner # (Auto) 0.86 H (0.24-0.82) K/uL Eos # (Auto) 0.02 (0-0.50) K/uL Baso # (Auto) 0.03 (0-0.2) K/uL Immature Gran # (Auto) 0.05 H (0.00-0.02) K/uL Sodium 138 (136-145) mmol/L Potassium TNP Chloride 98 (98-107) mmol/L Carbon Dioxide 28 (21-32) mmol/L Anion Gap 12 H (3-11) BUN 10 (6-23) mg/dl Creatinine 0.80 (0.6-1.4) mg/dl Est Cr Clr Drug Dosing 133.1 ml/min Est GFR ( Amer) 134.1 ml/min Est GFR (Non-Af Amer) 115.7 ml/min BUN/Creatinine Ratio 12.5 (10-20) Glucose 157 H (70-99(Fasting)) mg/dl Calcium 9.9 (8.5-10.1) mg/dl Total Bilirubin 1.7 H (0.2-1.0) mg/dl AST TNP ALT 23 (7-52) U/L Alkaline Phosphatase 149 H (34-104) U/L Total Protein 7.8 (6.0-8.3) gm/dl Albumin 4.6 (3.4-5.0) gm/dl Globulin 3.2 (2.5-4.0) gm/dl Albumin/Globulin Ratio 1.4 (0.9-2) Lipase 841 H (11-82) U/L MDM Narrative Vital signs stable. Labs show a lipase of 841 patient will be admitted to [facility] hospitalist Dr. Gardiner notified. Impression & Plan Pancreatitis Discharge Plan Visit Data Chief Complaint: Abdominal Pain Stated Complaint: PANCREATITIS ED Provider: Sudhakar Butler Discharge Problem: Pancreatitis Patient Disposition: Admitted As Inpatient Forms Stand Alone Forms: My [facility] Prescriptions Prescriptions: No Action pantoprazole 40 mg tablet,delayed release (DR/EC) 40 mg PO BID warfarin 5 mg tablet 5 - 10 mg PO DIRECTED Rx Instructions: as directed by anti-coagulation clinic quetiapine [Seroquel] 50 mg tablet 50 mg PO BID Referrals Referrals: PCP,NO [Primary Care Provider] - : Pancreatitis Qualifiers: Chronicity: chronic Pancreatitis type: unspecified pancreatitis type Qualified Code(s): K86.1 - Other chronic pancreatitis
[2022-03-31 15:36] LABS: Alanine Aminotransferase 23 U/L (7-52); Albumin Globulin Ratio 1.4 (0.9-2); Albumin Level 4.6 gm/dl (3.4-5.0); Alkaline Phosphatase 149 U/L (34-104); Anion Gap 12 (3-11); BUN Creatinine Ratio 12.5 (10-20); Bilirubin,Total 1.7 mg/dl (0.2-1.0); Blood Urea Nitrogen 10 mg/dl (6-23); Calcium 9.9 mg/dl (8.5-10.1); Carbon Dioxide 28 mmol/L (21-32); Chloride 98 mmol/L (98-107); Creatinine Clr Calc Pharmacy 133.1 ml/min; Est GFR (African American) 134.1 ml/min; Est GFR (Non-African American) 115.7 ml/min; Globulin 3.2 gm/dl (2.5-4.0); Glucose 157 mg/dl (70-99(Fasting)); Lipase 841 U/L (11-82); Sodium 138 mmol/L (136-145); Total Protein 7.8 gm/dl (6.0-8.3)
[2022-03-31] MEDS ORDERED: KETOROLAC TROMETHAMINE 15 MG/ML VIAL IV STA (15:37)
[2022-03-31 16:16] LABS: Appearance Urine Clear (Clear); Bacteria Urine Automated Negative (Negative); Bilirubin Urine 1+ (Negative); Blood Urine Negative (Negative); Color Urine Orange; Epithelial Cell Urine Auto >30 /lpf (0-5); Glucose Urine UA Negative (Negative); Ketones Urine 3+ (Negative); Leukocyte Esterase Urine Trace (Negative); Nitrite Urine Positive (Negative); Protein Urine 2+ (Negative); RBC Urine Automated 0-4 /hpf (0-4); Specific Gravity Urine 1.033 (1.000-1.030); Urobilinogen Urine Negative (Negative); pH Urine 6.5 (4.5-7.5)
[2022-03-31] MEDS ORDERED: OPTIRAY 320 100ml IV ONE (16:26)
--- NOTE | 2022-03-31 16:44 | CT Scan Report ---
CT SCAN OF THE ABDOMEN AND PELVIS WITH IV CONTRAST CLINICAL HISTORY: Nausea. Abdominal pain. Pancreatitis. COMPARISON STUDY: Abdominal CT dated 10/18/2021. TECHNIQUE: Following the IV administration of 94 cc of Optiray 320, CT scan of the abdomen and pelvi s is performed from the lung bases to the proximal femora. Images are reviewed in the axial, sagittal , and coronal planes. IV contrast was administered without complication. A dose lowering technique wa s utilized adhering to the principles of ALARA. CT DOSE: 340.37 mGy.cm FINDINGS: Lung bases: The heart is normal in size and without pericardial effusion. The lung bases are clear. Liver: The contrast-enhanced liver is enlarged, measuring 22.6 cm in length. The liver demonstrates d iffusely diminished attenuation consistent with severe hepatic steatosis. There is no intrahepatic bi liary ductal dilatation. The hepatic veins and portal veins are patent. Gallbladder: Distended but otherwise normal in appearance. Spleen: Normal in size and attenuation. Pancreas: The majority of high-grade body is markedly atrophic consistent with previous necrotizing p ancreatitis. Residual pancreatic tail parenchyma is seen on image #118. A cystogastrostomy stent is i n place. The pancreatic head and neck are enlarged and edematous with extensive surrounding inflammat ion and fluid. There is a 4.7 x 4.0 x 4.0 cm simple cystic collection along the inferior aspect of th e pancreatic head seen on image #182. No additional organized fluid collection is clearly identified. There is marked attenuation of the superior mesenteric vein below the portosplenic confluence. The v essel remains patent Edmar collaterals. There is only mild narrowing of the splenic vein. Adrenal glands: Unremarkable. Kidneys: The contrast enhanced kidneys are normal in size and without hydronephrosis. The kidneys enh ance symmetrically. Abdominal vasculature: The abdominal aorta is normal in course and caliber. Bowel: Edema of the stomach and duodenum is likely related to adjacent pancreatitis. No bowel obstruc tion is seen. The appendix is normal as visualized. Peritoneum/retroperitoneum: There is trace perisplenic ascites, as well as a small volume of free flu id in the pelvis. Fluid is seen tracking inferiorly within the retroperitoneum secondary to pancreati tis. No intraperitoneal free air is seen. There is a fat-containing umbilical hernia. Lymphadenopathy: Enlarged peripancreatic and dulce hepatic nodes measure up to 16 mm in short axis. T hese are likely reactive. Pelvic viscera: The bladder, prostate, and seminal vesicles are normal as visualized. Skeletal structures: No lytic or blastic lesions are seen. IMPRESSION: 1. Findings are consistent with severe acute pancreatitis as detailed above. 2. Marked atrophy of the pancreatic body is related to previous necrosis. 3. There is no evidence of acute pancreatic necrosis on today's examination. 4. A 4.7 x 4.0 x 4.0 cm fluid collection along the inferior aspect of the pancreatic head is typical for a pseudocyst. 5. No additional fluid collection is identified. 6. A cystogastrostomy tube is in place. There is no residual pseudocyst in the region of the pancreat ic tail. 7. Inflammation of the stomach and duodenum is likely related to adjacent pancreatitis. 8. Fluid tracks inferiorly within the peritoneum and there is a small volume of abdominopelvic ascite s. 9. Hepatomegaly and severe hepatic steatosis. 10. The gallbladder is distended but otherwise normal as imaged. 11. There is marked attenuation of superior mesenteric vein below the portosplenic confluence. The ve ssel remains patent and there are surrounding collaterals. 12. Additional findings as above. ACT 112: Negative or not required by law. Electronically signed by: Davidson Milan M.D. 03/31/2022 4:43 PM
[2022-03-31] MEDS ORDERED: HYDROmorphone INJ 0.5 MG/0.5 ML SYR IV STA (17:03)
[2022-03-31 17:14] LABS: Potassium 3.2 mmol/L (3.5-5.1)
--- NOTE | 2022-03-31 17:23 | History & Physical Report ---
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- s/p stent in [place] 11/08 - Patient presents with pain consistent with pancreatitis, elevated lipase, and radiographic evidence of pancreatitis - BISAP score of 0 - remains with pancreatic pseudocyst - LR at 150ml per hour- adjust rate as determined by hemodynamics and urine output - LFTS normal, bili 1.7 ALKPO4 149 - Obtain triglycerides - Ca 9.9 - Glucose 157 - Lipase 841 - Pain control with Hydromorphone 0.25mg IV q6- adjust as effective - Start with clears advance as able- he is aware that is pain returns or worsens to stop oral intake - Appreciate Gastroenterology evaluation (2) Pancreatic pseudocyst: Plan: Chronic - no interpretation of abscess on CT scan - follow (3) Mood disorder: Plan: Continue Lacmictal and Hydroxyzine - uses his hydroxyzine about once every other day- effective (4) GERD (gastroesophageal reflux disease): Plan: Cotninue PPI - if unable to tolerate oral meds- change to IV (5) Hepatic vein thrombosis: Plan: HX of in 09/06- Warfarin stopped once at [place] - CT with IV contrast here notes patent hepatic veins - hold further anticoagulation History of Present Illness Primary Care Provider: NO PCP 37 YOM with medical history of: Alcoholic Pancreatitis with necrosis- required stent at [place] (11/08), mood disorder, HTN, GERD, Liver thrombus JUL 07. Patient comes into the EMD today for acute onset of abdominal pain last evening that started on his right side and then crossed "like a band" across to his left side. This was acute in nature and was associated with nausea and vomiting. He vomited 3 times. Last episode was this morning and was yellow and "phlem". He endorses his last meal was last evening but he can not remember what he had. He did have one 8 OZ alcoholic mixed beer drink yesterday. He reports new medications being started within the past month of Lamictal and Hydroxyzine. In the EMD the patient had routine labs performed to include lipase, and UA. CT scan was requested. He was given 1 liter of 0.9% saline in the EMD and Morphine and Toradol for pain. Lipase returned at 841, WBC 10, UA noting 1.033 Spec Grav. Patient will be admitted continue with IVF, follow up labs for other causes of pancreatitis. GI consultation placed. COVID test on admission is: NEGATIVE Allergies Allergy/AdvReac Type Severity Reaction Status Date / Time No Known Allergies Allergy Verified 03/31/22 16:01 Home Medications Medication Instructions Recorded Confirmed Type pantoprazole 40 mg tablet,delayed 40 mg PO BID 09/03/21 03/31/22 History release fluoxetine 20 mg capsule 20 mg PO DAILY 03/31/22 03/31/22 History lamotrigine 100 mg tablet 100 mg PO HS 03/31/22 03/31/22 History Past Med/Surg History Medical History Alcohol use disorder GERD (gastroesophageal reflux disease) History of alcohol abuse Hypertension No pertinent family history Pseudocyst of pancreas Recurrent pancreatitis Surgical History No pertinent past surgical history Social History Smoking Status: Current every day smoker Tobacco Type: Cigarettes Do You Dip or Chew Tobacco: No; Hx Alcohol Use: Yes Hx Substance Use: No Preferred Language: Indonesian Communication Ability: Effective 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 Beliefs That Will Affect Care: None Current Living Situation: Alone Feels Safe at Home: Yes Assistive Devices: None Review of Systems Review of Systems: REVIEW OF SYSTEMS: Constitutional: No fever, sweats or chills Eyes: No diplopia, no worsening or blurred vision ENT: normal hearing, no trouble swallowing Respiratory: No cough, sputum, dyspnea at rest or on exertion Cardiovascular: No chest pain, tightness or palpitations Abdomen: (+) pain, nausea, vomiting, dark urine, No diarrhea or constipation Musculoskeletal: No joint pain, calf pain, swelling Neurologic: No weakness, numbness/tingling, or balance problems Psychiatric: (+) anxiety or depression Skin: No rash or itch Physical Exam Physical Exam: PHYSICAL EXAM: General: awake, alert, no apparent distress Head: Normocephalic, atraumatic ENT: PERRLA, EOMI, no pharyngeal exudate, mucous membranes dry Neuro: AAO x 3, speech clear and appropriate, strength intact bilaterally 5/5, sensation intact and equal all extremities and dermatomes, no pronator drift Chest: equal rise and fall of the chest, no accessory muscle use, no heaves or thrills, Clear to auscultation, on room air, Cardiac: Regular rate and rhythm, telemetry reviewed, skin warm dry, cap refill <3 seconds, peripheral pulses +2 no JVD, no murmur, no edema GI: epigastric and RLQ abdominal pain with palpation, NABS x 4 quadrants, soft, nontender to palpation, no rebound, guarding or tenderness : Spontaneously voiding, no pain, no CVA tenderness, Extremities: Normal inspection, no peripheral edema or erythema, calfs nontender to palpation Psych: Normal mood and affect Skin: no rash or erythema Results & Data Results & Data ([facility]) Vital Signs (Past 12 Hours) Vital Signs Temp Pulse Pulse Resp BP BP Pulse Ox 03/31/22 15:56 67 18 173/112 H 98 03/31/22 14:27 83 18 179/120 H 96 03/31/22 13:29 36.7 C 82 16 176/119 H 97 O2 Del Method 03/31/22 15:56 Room Air 03/31/22 14:27 Room Air 03/31/22 13:29 Room Air Laboratory Results Abnormal lab results 03/31/22 03/31/22 03/31/22 Range/Units 14:31 14:31 15:28 WBC 10.83 H (4.8-10.8) K/ul MCHC 36.5 H (32.0-36.0) g/dL Neut # (Auto) 8.98 H (1.4-6.5) K/uL Lymph # (Auto) 0.89 L (1.2-3.4) K/uL [place] # (Auto) 0.86 H (0.24-0.82) K/uL Immature Gran # (Auto) 0.05 H (0.00-0.02) K/uL Potassium (3.5-5.1) mmol/L Anion Gap 12 H (3-11) Glucose 157 H (70-99(Fasting)) mg/dl Total Bilirubin 1.7 H (0.2-1.0) mg/dl Alkaline Phosphatase 149 H (34-104) U/L Lipase 841 H (11-82) U/L Ur Specific [place] 1.033 H (1.000-1.030) Urine Protein 2+ H (Negative) Urine Ketones 3+ H (Negative) Urine Nitrite Positive A (Negative) Urine Bilirubin 1+ H (Negative) Ur Leukocyte Esterase Trace H (Negative) U Hyaline Cast (Auto) 5-10 H (0-5) /lpf U Epithel Cells (Auto) >30 H (0-5) /lpf 03/31/22 Range/Units 16:05 WBC (4.8-10.8) K/ul MCHC (32.0-36.0) g/dL Neut # (Auto) (1.4-6.5) K/uL Lymph # (Auto) (1.2-3.4) K/uL [place] # (Auto) (0.24-0.82) K/uL Immature Gran # (Auto) (0.00-0.02) K/uL Potassium 3.2 L (3.5-5.1) mmol/L Anion Gap (3-11) Glucose (70-99(Fasting)) mg/dl Total Bilirubin (0.2-1.0) mg/dl Alkaline Phosphatase (34-104) U/L Lipase (11-82) U/L Ur Specific [place] (1.000-1.030) Urine Protein (Negative) Urine Ketones (Negative) Urine Nitrite (Negative) Urine Bilirubin (Negative) Ur Leukocyte Esterase (Negative) U Hyaline Cast (Auto) (0-5) /lpf U Epithel Cells (Auto) (0-5) /lpf Diagnostic Findings Abdomen/Pelvis CT 03/31/22 15:58 CT SCAN OF THE ABDOMEN AND PELVIS WITH IV CONTRAST CLINICAL HISTORY: Nausea. Abdominal pain. Pancreatitis. COMPARISON STUDY: Abdominal CT dated 10/18/2021. TECHNIQUE: Following the IV administration of 94 cc of Optiray 320, CT scan of the abdomen and pelvis is performed from the lung bases to the proximal femora. Images are reviewed in the axial, sagittal, and coronal planes. IV contrast was administered without complication. A dose lowering technique was utilized adhering to the principles of ALARA. CT DOSE: 340.37 mGy.cm FINDINGS: Lung bases: The heart is normal in size and without pericardial effusion. The lung bases are clear. Liver: The contrast-enhanced liver is enlarged, measuring 22.6 cm in length. The liver demonstrates diffusely diminished attenuation consistent with severe hepatic steatosis. There is no intrahepatic biliary ductal dilatation. The hepatic veins and portal veins are patent. Gallbladder: Distended but otherwise normal in appearance. Spleen: Normal in size and attenuation. Pancreas: The majority of high-grade body is markedly atrophic consistent with previous necrotizing pancreatitis. Residual pancreatic tail parenchyma is seen on image #118. A cystogastrostomy stent is in place. The pancreatic head and neck are enlarged and edematous with extensive surrounding inflammation and fluid. There is a 4.7 x 4.0 x 4.0 cm simple cystic collection along the inferior aspect of the pancreatic head seen on image #182. No additional organized fluid collection is clearly identified. There is marked attenuation of the superior mesenteric vein below the portosplenic confluence. The vessel remains patent Edmar collaterals. There is only mild narrowing of the splenic vein. Adrenal glands: Unremarkable. Kidneys: The contrast enhanced kidneys are normal in size and without hydronephrosis. The kidneys enhance symmetrically. Abdominal vasculature: The abdominal aorta is normal in course and caliber. Bowel: Edema of the stomach and duodenum is likely related to adjacent pancreatitis. No bowel obstruction is seen. The appendix is normal as visualized. Peritoneum/retroperitoneum: There is trace perisplenic ascites, as well as a small volume of free fluid in the pelvis. Fluid is seen tracking inferiorly within the retroperitoneum secondary to pancreatitis. No intraperitoneal free air is seen. There is a fat-containing umbilical hernia. Lymphadenopathy: Enlarged peripancreatic and dulce hepatic nodes measure up to 16 mm in short axis. These are likely reactive. Pelvic viscera: The bladder, prostate, and seminal vesicles are normal as visualized. Skeletal structures: No lytic or blastic lesions are seen. IMPRESSION: 1. Findings are consistent with severe acute pancreatitis as detailed above. 2. Marked atrophy of the pancreatic body is related to previous necrosis. 3. There is no evidence of acute pancreatic necrosis on today's examination. 4. A 4.7 x 4.0 x 4.0 cm fluid collection along the inferior aspect of the pancreatic head is typical for a pseudocyst. 5. No additional fluid collection is identified. 6. A cystogastrostomy tube is in place. There is no residual pseudocyst in the region of the pancreatic tail. 7. Inflammation of the stomach and duodenum is likely related to adjacent pancreatitis. 8. Fluid tracks inferiorly within the peritoneum and there is a small volume of abdominopelvic ascites. 9. Hepatomegaly and severe hepatic steatosis. 10. The gallbladder is distended but otherwise normal as imaged. 11. There is marked attenuation of superior mesenteric vein below the portosplenic confluence. The vessel remains patent and there are surrounding c ollaterals. 12. Additional findings as above. ACT 112: Negative or not required by law. Electronically signed by: Davidson Milan M.D. 03/31/2022 4:43 PM Medications Administered Home Medications pantoprazole 40 mg tablet,delayed release 40 mg PO BID 09/03/21 [History Confirmed 03/31/22] fluoxetine 20 mg capsule 20 mg PO DAILY 03/31/22 [History Confirmed 03/31/22] lamotrigine 100 mg tablet 100 mg PO HS 03/31/22 [History Confirmed 03/31/22] Discontinued Medications Hydromorphone HCl (Hydromorphone Inj 0.5 Mg/0.5 Ml Syr) 0.25 mg IV NOW STA Stop: 03/31/22 17:04 Last Admin: 03/31/22 17:10 Dose: 0.25 mg Documented By: KLAUDIA Sodium Chloride (Nss) 500 mls @ 999 mls/hr IV .Q31M STA Stop: 03/31/22 14:03 Last Infusion: 03/31/22 15:15 Dose: 0 mls/hr Documented By: Admin: 03/31/22 14:46 Dose: 999 mls/hr Documented By: YESI Ioversol (Optiray 320 100ml) 94 ml IV ONCE ONE Stop: 03/31/22 16:27 Last Admin: 03/31/22 16:27 Dose: 94 ml Documented By: FIDEL Ketorolac Tromethamine (Ketorolac Tromethamine 15 Mg/Ml Vial) 15 mg IV NOW STA Stop: 03/31/22 15:38 Last Admin: 03/31/22 15:56 Dose: 15 mg Documented By: KLAUDIA Morphine Sulfate (Morphine Sulfate 4 Mg/Ml 1 Ml Carp\\Vial) 4 mg IV NOW STA Stop: 03/31/22 14:34 Last Admin: 03/31/22 14:46 Dose: 4 mg Documented By: YESI Ondansetron HCl (Ondansetron Inj 2 Mg/Ml 2 Ml Vial) 4 mg IV NOW STA Stop: 03/31/22 13:34 Last Admin: 03/31/22 14:46 Dose: 4 mg Documented By: YESI Ondansetron HCl (Ondansetron Inj 2 Mg/Ml 2 Ml Vial) 4 mg IV NOW STA Stop: 03/31/22 14:34 Last Admin: 03/31/22 14:48 Dose: Not Given Documented By: YESI ECG Additional Comments: not obtained Code Status & VTE Plan Code Status CODE: FULL VTE: SCDS, Ambulation VTE Prophylaxis Plan VTE Prophylaxis will be ordered: Yes Supervising Physician Co-Signing Physician Notes Patient seen and examined at bedside. Obtained a history and physical examination during face to face encounter. I reivewed above note and agree with it. Discussed plan of care with patient and APC Elsi. Patient will be admitted for pancreatitis, placed on IVF. PG Care Time/CCT Total # of Minutes Spent Total Time Spent with Patient: Total time spent is greater than 50% in coordination of care (as documented) at patient's floor/unit and/or counseling patient: Coding Level of Care Code 07558 Initial Inpt Care Lvl 3 Diagnoses Pancreatitis K86.1 Chronicity: chronic Pancreatitis type: unspecified pancreatitis type Pancreatic pseudocyst K86.3 Mood disorder F39 GERD (gastroesophageal reflux disease) K21.9 Hepatic vein thrombosis I82.0 (1) Pancreatitis Chronicity: chronic Pancreatitis type: unspecified pancreatitis type Qualifi ed Code(s): K86.1 - Other chronic pancreatitis
[2022-03-31 17:37] LABS: INR 1.1 (0.9-1.1); Prothrombin Time 11.3 Seconds (9.0-12.0)
[2022-03-31] MEDS: HYDROmorphone INJ 0.5 MG/0.5 ML SYR IV PRN ×2 (19:42→23:59)
[2022-03-31] MEDS: LACTATED RINGER'S 1,000 ML IV SCH (19:51)
[2022-03-31] MEDS: PANTOprazole 40 MG TAB PO SCH (23:58)
[2022-03-31] MEDS: lamoTRIgine 100 MG TAB PO SCH (23:58)
[2022-04-01] MEDS: ACETAMINOPHEN 1,000 MG/100 ML VIAL IV PRN ×3 (02:21→19:33)
[2022-04-01] MEDS: LACTATED RINGER'S 1,000 ML IV SCH ×3 (02:21→15:27)
[2022-04-01] MEDS ORDERED: LORazepam 1 MG TAB PO PRN (02:45)
[2022-04-01] MEDS: HYDROmorphone INJ 0.5 MG/0.5 ML SYR IV PRN ×5 (03:40→20:31)
[2022-04-01 07:27] LABS: Basophils # (auto) 0.03 K/uL (0-0.2); Basophils % (auto) 0.3 %; Eosinophils # (auto) 0.13 K/uL (0-0.50); Eosinophils % (auto) 1.4 %; Hematocrit (blood only) 40.8 % (40.1-51.0); Hemoglobin 14.9 g/dl (14.0-18.0); Immature Granulocytes # (auto) 0.03 K/uL (0.00-0.02); Immature Granulocytes % (auto) 0.3 %; Lymphocytes # (auto) 1.42 K/uL (1.2-3.4); Lymphocytes % (auto) 15.8 %; Mean Corpuscular Hemoglobin 32.2 pg (25.0-34.0); Mean Corpuscular Hgb Conc 36.5 g/dL (32.0-36.0); Mean Corpuscular Volume 88.1 fL (80.0-100.0); Mean Platelet Volume 10.4 fL (9.4-12.4); Monocytes # (auto) 0.82 K/uL (0.24-0.82); Monocytes % (auto) 9.1 %; Neutrophils # (auto) 6.58 K/uL (1.4-6.5); Neutrophils % (auto) 73.1 %; Platelet Count 170 K/uL (130-400); RDW Coefficient of Variation 14.5 % (11.5-14.5); RDW Standard Deviation 45.3 fL (36.4-46.3); Red Blood Count 4.63 M/uL (4.63-6.08); White Blood Count 9.01 K/ul (4.8-10.8)
[2022-04-01 08:33] LABS: Alanine Aminotransferase 14 U/L (7-52); Albumin Level 3.8 gm/dl (3.4-5.0); Alkaline Phosphatase 106 U/L (34-104); Anion Gap 8 (3-11); BUN Creatinine Ratio 18.6 (10-20); Bilirubin,Total 1.3 mg/dl (0.2-1.0); Blood Urea Nitrogen 13 mg/dl (6-23); Calcium 8.8 mg/dl (8.5-10.1); Carbon Dioxide 29 mmol/L (21-32); Chloride 99 mmol/L (98-107); Creatinine Clr Calc Pharmacy 152.1 ml/min; Est GFR (African American) 141.7 ml/min; Est GFR (Non-African American) 122.3 ml/min; Glucose 113 mg/dl (70-99(Fasting)); Magnesium 1.7 mg/dl (1.7-2.4); Sodium 136 mmol/L (136-145); Total Protein 6.6 gm/dl (6.0-8.3)
[2022-04-01] MEDS ORDERED: FLUoxetine HCL 20 MG CAP PO SCH (09:00)
[2022-04-01 09:15] LABS: Bilirubin Direct 0.3 mg/dl (0-0.2); Potassium 3.2 mmol/L (3.5-5.1)
[2022-04-01] MEDS: PANTOprazole 40 MG TAB PO SCH ×2 (09:16→20:31)
--- NOTE | 2022-04-01 10:41 | Gastrointestinal Consultation ---
Date of Consultation April 01, 2022 Assessment & Plan (1) Pancreatic necrosis: Patient readmitted with worsening abdominal discomfort. Given the history of an axial stent placement at an outside institution with debridement of a pancreatic pseudocyst I would recommend that he be referred back to [facility] for repeat procedure as this could certainly be causing his worsening symptoms. This should be done as an inpatient as it appears the patient has not been a good as an outpatient Recommendations npo Continue IV hydration Transfer back to [facility] as the patient needs repeated pancreatic debridement History of Present Illness Reason for Consultation: Recurrent pancreatitis Attending Physician: Mukund Parsons MD History of Present Illness The patient is a 37-year-old male with a history of substance abuse alcohol abuse presenting with abdominal discomfort over several days. 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 It appears he was to have a repeat procedure performed several weeks later but he never made the appointment. The patient notes that he is never quite been able to become abstinent and has been drinking a little bit more heavily in the recent past. His abdominal pain is described as a bandlike sensation in his mid abdomen radiating towards his back. Allergies Allergy/AdvReac Type Severity Reaction Status Date / Time No Known Allergies Allergy Verified 03/31/22 16:01 Home Medications Medication Instructions Recorded Confirmed Type pantoprazole 40 mg tablet,delayed 40 mg PO BID 09/03/21 03/31/22 History release fluoxetine 20 mg capsule 20 mg PO DAILY 03/31/22 03/31/22 History lamotrigine 100 mg tablet 100 mg PO HS 03/31/22 03/31/22 History Patient History Medical History Alcohol use disorder GERD (gastroesophageal reflux disease) History of alcohol abuse Hypertension No pertinent family history Pseudocyst of pancreas Recurrent pancreatitis Surgical History No pertinent past surgical history Social History Smoking Status: Current every day smoker Tobacco Type: Cigarettes Do You Dip or Chew Tobacco: No; Hx Alcohol Use: Yes Hx Substance Use: No Preferred Language: Chinese Communication Ability: Effective 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 Beliefs That Will Affect Care: None Current Living Situation: Alone Feels Safe at Home: Yes Assistive Devices: None Review of Systems Constitutional: no fever, no chills and no sweats Eyes: no diplopia Ear, Nose, Mouth, Throat: no ear trauma Respiratory: no cough, no change in sputum and no dyspnea Cardiovascular: no chest pain and no chest pain with activity Gastrointestinal: + abdominal pain, + bloating and + nausea Genitourinary: no urinary frequency Musculoskeletal: no radicular pain Integumentary: no rash Neurologic: no falls Psychiatric: no suicidal ideation Endocrine: no polydipsia Hematologic / Lymphatic: no coagulopathy Physical Exam Constitutional: WD/WN, vitals as above Eyes: PERRL, conjunctivae normal, anicteric sclerae ENMT: external ear and nose normal, oropharynx normal Neck: trachea midline, no thyromegaly Respiratory: normal respiratory effort, lungs clear to auscultation Cardiovascular: Rate/Rhythm: regular rate and regular rhythm; not tachycardic Gastrointestinal (Abdomen): Percussion/Palpation: + abdomen tender and abdomen soft; no guarding Results & Data ([facility]) Vital Signs (Past 12 Hours) Vital Signs Temp Pulse Resp BP BP Pulse Ox O2 Del Method 04/01/22 10:03 176/104 H 04/01/22 10:02 36.9 C 68 20 179/104 H 96 Room Air 04/01/22 07:48 36.8 C 70 20 169/96 H 97 Room Air 04/01/22 02:13 37.3 C 70 18 172/96 H 97 Room Air Laboratory Results Laboratory Results - last 24 hr 03/31/22 03/31/22 03/31/22 14:31 14:31 14:31 WBC 10.83 H RBC 5.26 Hgb 17.0 Hct 46.6 MCV 88.6 MCH 32.3 MCHC 36.5 H RDW Std Deviation 44.6 RDW Coeff of Gay 14.5 Plt Count 251 MPV 10.1 Immature Gran % (Auto) 0.5 Neut % (Auto) 82.9 Lymph % (Auto) 8.2 [place] % (Auto) 7.9 Eos % (Auto) 0.2 Baso % (Auto) 0.3 Neut # (Auto) 8.98 H Lymph # (Auto) 0.89 L [place] # (Auto) 0.86 H Eos # (Auto) 0.02 Baso # (Auto) 0.03 Immature Gran # (Auto) 0.05 H PT 11.3 INR 1.1 Sodium 138 Potassium TNP Chloride 98 Carbon Dioxide 28 Anion Gap 12 H BUN 10 Creatinine 0.80 Est Cr Clr Drug Dosing 133.1 Est GFR ( Amer) 134.1 Est GFR (Non-Af Amer) 115.7 BUN/Creatinine Ratio 12.5 Glucose 157 H Calcium 9.9 Magnesium Total Bilirubin 1.7 H Direct Bilirubin AST TNP ALT 23 Alkaline Phosphatase 149 H Total Protein 7.8 Albumin 4.6 Globulin 3.2 Albumin/Globulin Ratio 1.4 Triglycerides Lipase 841 H Procalcitonin Urine Color Urine Appearance Urine pH Ur Specific [place] Urine Protein Urine Glucose (UA) Urine Ketones Urine Blood Urine Nitrite Urine Bilirubin Urine Urobilinogen Ur Leukocyte Esterase Urine WBC (Auto) Urine RBC (Auto) U Hyaline Cast (Auto) U Epithel Cells (Auto) Urine Bacteria (Auto) SARS-CoV-2, RNA, NAAT 03/31/22 03/31/22 03/31/22 14:31 14:31 15:28 WBC RBC Hgb Hct MCV MCH MCHC RDW Std Deviation RDW Coeff of Gay Plt Count MPV Immature Gran % (Auto) Neut % (Auto) Lymph % (Auto) [place] % (Auto) Eos % (Auto) Baso % (Auto) Neut # (Auto) Lymph # (Auto) [place] # (Auto) Eos # (Auto) Baso # (Auto) Immature Gran # (Auto) PT INR Sodium Potassium Chloride Carbon Dioxide Anion Gap BUN Creatinine Est Cr Clr Drug Dosing Est GFR ( Amer) Est GFR (Non-Af Amer) BUN/Creatinine Ratio Glucose Calcium Magnesium Total Bilirubin Direct Bilirubin AST ALT Alkaline Phosphatase Total Protein Albumin Globulin Albumin/Globulin Ratio Triglycerides 150 Lipase Procalcitonin < 0.05 Urine Color [place] Urine Appearance Clear Urine pH 6.5 Ur Specific [place] 1.033 H Urine Protein 2+ H Urine Glucose (UA) Negative Urine Ketones 3+ H Urine Blood Negative Urine Nitrite Positive A Urine Bilirubin 1+ H Urine Urobilinogen Negative Ur Leukocyte Esterase Trace H Urine WBC (Auto) 1-5 Urine RBC (Auto) 0-4 U Hyaline Cast (Auto) 5-10 H U Epithel Cells (Auto) >30 H Urine Bacteria (Auto) Negative SARS-CoV-2, RNA, NAAT 03/31/22 03/31/22 04/01/22 15:55 16:05 06:46 WBC 9.01 RBC 4.63 Hgb 14.9 Hct 40.8 MCV 88.1 MCH 32.2 MCHC 36.5 H RDW Std Deviation 45.3 RDW Coeff of Gay 14.5 Plt Count 170 MPV 10.4 Immature Gran % (Auto) 0.3 Neut % (Auto) 73.1 Lymph % (Auto) 15.8 [place] % (Auto) 9.1 Eos % (Auto) 1.4 Baso % (Auto) 0.3 Neut # (Auto) 6.58 H Lymph # (Auto) 1.42 [place] # (Auto) 0.82 Eos # (Auto) 0.13 Baso # (Auto) 0.03 Immature Gran # (Auto) 0.03 H PT INR Sodium Potassium 3.2 L Chloride Carbon Dioxide Anion Gap BUN Creatinine Est Cr Clr Drug Dosing Est GFR ( Amer) Est GFR (Non-Af Amer) BUN/Creatinine Ratio Glucose Calcium Magnesium Total Bilirubin Direct Bilirubin AST 19 ALT Alkaline Phosphatase Total Protein Albumin Globulin Albumin/Globulin Ratio Triglycerides Lipase Procalcitonin Urine Color Urine Appearance Urine pH Ur Specific [place] Urine Protein Urine Glucose (UA) Urine Ketones Urine Blood Urine Nitrite Urine Bilirubin Urine Urobilinogen Ur Leukocyte Esterase Urine WBC (Auto) Urine RBC (Auto) U Hyaline Cast (Auto) U Epithel Cells (Auto) Urine Bacteria (Auto) SARS-CoV-2, RNA, NAAT NEGATIVE 04/01/22 04/01/22 06:46 08:40 WBC RBC Hgb Hct MCV MCH MCHC RDW Std Deviation RDW Coeff of Gay Plt Count MPV Immature Gran % (Auto) Neut % (Auto) Lymph % (Auto) [place] % (Auto) Eos % (Auto) Baso % (Auto) Neut # (Auto) Lymph # (Auto) [place] # (Auto) Eos # (Auto) Baso # (Auto) Immature Gran # (Auto) PT INR Sodium 136 Potassium TNP 3.2 L Chloride 99 Carbon Dioxide 29 Anion Gap 8 BUN 13 Creatinine 0.70 Est Cr Clr Drug Dosing 152.1 Est GFR ( Amer) 141.7 Est GFR (Non-Af Amer) 122.3 BUN/Creatinine Ratio 18.6 Glucose 113 H Calcium 8.8 Magnesium 1.7 Total Bilirubin 1.3 H Direct Bilirubin TNP 0.3 H AST TNP 14 ALT 14 Alkaline Phosphatase 106 H Total Protein 6.6 Albumin 3.8 Globulin Albumin/Globulin Ratio Triglycerides Lipase Procalcitonin Urine Color Urine Appearance Urine pH Ur Specific [place] Urine Protein Urine Glucose (UA) Urine Ketones Urine Blood Urine Nitrite Urine Bilirubin Urine Urobilinogen Ur Leukocyte Esterase Urine WBC (Auto) Urine RBC (Auto) U Hyaline Cast (Auto) U Epithel Cells (Auto) Urine Bacteria (Auto) SARS-CoV-2, RNA, NAAT Diagnostic Findings T SCAN OF THE ABDOMEN AND PELVIS WITH IV CONTRAST CLINICAL HISTORY: Nausea. Abdominal pain. Pancreatitis. COMPARISON STUDY: Abdominal CT dated 10/18/2021. TECHNIQUE: Following the IV administration of 94 cc of Optiray 320, CT scan of the abdomen and pelvis is performed from the lung bases to the proximal femora. Images are reviewed in the axial, sagittal, and coronal planes. IV contrast was administered without complication. A dose lowering technique was utilized adhering to the principles of ALARA. CT DOSE: 340.37 mGy.cm FINDINGS: Lung bases: The heart is normal in size and without pericardial effusion. The lung bases are clear. Liver: The contrast-enhanced liver is enlarged, measuring 22.6 cm in length. The liver demonstrates diffusely diminished attenuation consistent with severe hepatic steatosis. There is no intrahepatic biliary ductal dilatation. The hepatic veins and portal veins are patent. Gallbladder: Distended but otherwise normal in appearance. Spleen: Normal in size and attenuation. Pancreas: The majority of high-grade body is markedly atrophic consistent with previous necrotizing pancreatitis. Residual pancreatic tail parenchyma is seen on image #118. A cystogastrostomy stent is in place. The pancreatic head and neck are enlarged and edematous with extensive surrounding inflammation and fluid. There is a 4.7 x 4.0 x 4.0 cm simple cystic collection along the inferior aspect of the pancreatic head seen on image #182. No additional organized fluid collection is clearly identified. There is marked attenuation of the superior mesenteric vein below the portosplenic confluence. The vessel remains patent Edmar collaterals. There is only mild narrowing of the splenic vein. Adrenal glands: Unremarkable. Kidneys: The contrast enhanced kidneys are normal in size and without hydronephrosis. The kidneys enhance symmetrically. Abdominal vasculature: The abdominal aorta is normal in course and caliber. Bowel: Edema of the stomach and duodenum is likely related to adjacent pancreatitis. No bowel obstruction is seen. The appendix is normal as visualized. Peritoneum/retroperitoneum: There is trace perisplenic ascites, as well as a small volume of free fluid in the pelvis. Fluid is seen tracking inferiorly within the retroperitoneum secondary to pancreatitis. No intraperitoneal free air is seen. There is a fat-containing umbilical hernia. Lymphadenopathy: Enlarged peripancreatic and dulce hepatic nodes measure up to 16 mm in short axis. These are likely reactive. Pelvic viscera: The bladder, prostate, and seminal vesicles are normal as visualized. Skeletal structures: No lytic or blastic lesions are seen. IMPRESSION: 1. Findings are consistent with severe acute pancreatitis as detailed above. 2. Marked atrophy of the pancreatic body is related to previous necrosis. 3. There is no evidence of acute pancreatic necrosis on today's examination. 4. A 4.7 x 4.0 x 4.0 cm fluid collection along the inferior aspect of the pa ncreatic head is typical for a pseudocyst. 5. No additional fluid collection is identified. 6. A cystogastrostomy tube is in place. There is no residual pseudocyst in the region of the pancreatic tail. 7. Inflammation of the stomach and duodenum is likely related to adjacent pancreatitis. 8. Fluid tracks inferiorly within the peritoneum and there is a small volume of abdominopelvic ascites. 9. Hepatomegaly and severe hepatic steatosis.
[2022-04-01] MEDS ORDERED: POTASSIUM CHLORIDE CRTAB 20 MEQ TABCR PO STA (10:59)
[2022-04-01] MEDS ORDERED: LORazepam 1 MG in SYRINGE 0.5 ML IV PRN (10:59)
--- NOTE | 2022-04-01 12:41 | Discharge Summary ---
Date of Service April 02, 2022 Admission HPI Per Admitting Provider 37 YOM with medical history of: Alcoholic Pancreatitis with necrosis- required stent at [place] (11/08), mood disorder, HTN, GERD, Liver thrombus JUL 07. Patient comes into the EMD today for acute onset of abdominal pain last evening that started on his right side and then crossed "like a band" across to his left side. This was acute in nature and was associated with nausea and vomiting. He vomited 3 times. Last episode was this morning and was yellow and "phlem". He endorses his last meal was last evening but he can not remember what he had. He did have one 8 OZ alcoholic mixed beer drink yesterday. He reports new medications being started within the past month of Lamictal and Hydroxyzine. In the EMD the patient had routine labs performed to include lipase, and UA. CT scan was requested. He was given 1 liter of 0.9% saline in the EMD and Morphine and Toradol for pain. Lipase returned at 841, WBC 10, UA noting 1.033 Spec Grav. Patient will be admitted continue with IVF, follow up labs for other causes of pancreatitis. GI consultation placed. COVID test on admission is: NEGATIVE Admission Exam Per Admitting Provider PHYSICAL EXAM: General: awake, alert, no apparent distress Head: Normocephalic, atraumatic ENT: PERRLA, EOMI, no pharyngeal exudate, mucous membranes dry Neuro: AAO x 3, speech clear and appropriate, strength intact bilaterally 5/5, sensation intact and equal all extremities and dermatomes, no pronator drift Chest: equal rise and fall of the chest, no accessory muscle use, no heaves or thrills, Clear to auscultation, on room air, Cardiac: Regular rate and rhythm, telemetry reviewed, skin warm dry, cap refill <3 seconds, peripheral pulses +2 no JVD, no murmur, no edema GI: epigastric and RLQ abdominal pain with palpation, NABS x 4 quadrants, soft, nontender to palpation, no rebound, guarding or tenderness : Spontaneously voiding, no pain, no CVA tenderness, Extremities: Normal inspection, no peripheral edema or erythema, calfs nontender to palpation Psych: Normal mood and affect Skin: no rash or erythema Principal Diagnosis Pancreatitis, possible pancreatic stent occlusion Discharge Exam PHYSICAL EXAM: General: awake, alert, no apparent distress Head: Normocephalic, atraumatic ENT: mucous membranes moist Neuro: grossly alert and oriented, no focal motor deficits Chest: equal rise and fall of the chest, no accessory muscle use, no heaves or thrills, Clear to auscultation Cardiac: RRR, normal S1 and S2 GI: epigastric and RLQ abdominal tenderness with mild palpation, NABS x 4 quadrants, soft, no rebound or guarding Psych: Normal mood and affect Skin: no rash or erythema Discharge Data Allergies Allergy/AdvReac Type Severity Reaction Status Date / Time No Known Allergies Allergy Verified 03/31/22 16:01 Consultations 03/31/22 15:38 ED Decision to Admit Stat 03/31/22 19:26 Consult Gastroenterology Routine Ordered Studies 03/31/22 15:58 CT abd pelvis IV con only Stat Hospital Course (1) Pancreatitis: 37 yo M with history of alcoholism and multiple incidents of ETOH induced pancreatitis as well as necrotizing pancreatitis 12/2021- s/p debridement and pancreatic stent placement at [facility] (1) Necrotizing pancreatitis vs possible pancreatic stent occlusion - BISAP score of 0 - CTAP suggestive of pancreatitis, pancreatic pseudocyst still present - Lipase 841 on admission, triglycerides wnl, LFTs wnl - Treated with IVF LR 150cc/hr, pain control with Dilaudid 0.25 mg IV q6h, Tylenol while in hospital - GI consulted: recommending transfer to [facility] as pt was originally supposed to have repeat debridement but did not schedule appointment. Pt may have stent occlusion - Pt accepted for transfer to [facility] on 04/[address] Mojica (2) Alcohol withdrawal -Monitored with AWSS protocol while in hospital -Some elevated BPs 160s-170s/90s-110s with occasional anxiety, sweating -Ativan PRN given per protocol -Last known alcohol intake at approximately 9 AM on 03/31 (3) Pancreatic pseudocyst: Plan: Chronic - no interpretation of current abscess on CT scan (4) Mood disorder: Plan: Continue Lacmictal and Hydroxyzine - PRN hydroxyzine about once every other day- effective (5) GERD (gastroesophageal reflux disease): Plan: Continue PPI (6) Hepatic vein thrombosis: Plan: HX of in 09/06- Warfarin stopped once at [place] - CT with IV contrast here notes patent hepatic veins - hold further anticoagulation Total Time Total Time Spent Total Time Spent (In Minutes): 30 Discharge Plan Discharge Items Patient Disposition: Transfer Acute Care Hospital Reason For Visit: ABDOMINAL PAIN, PANCREATITIS Discharge Diagnosis: Necrotizing pancreatitis Activity: Per Instructions section Non-emergency contact: Primary Care Provider and Insole Rasper Call non-emergency contact if: your symptoms worsen, your pain is worsening and you have a fever Follow-up/Referrals: PCP,NO [Primary Care Provider] - Diet: Low Fat Addtl Attending Provider Instructions: 37 yo M with history of alcoholism and multiple incidents of ETOH induced pancreatitis as well as necrotizing pancreatitis 12/2021- s/p debridement and pancreatic stent placement at [facility] (1) Necrotizing pancreatitis vs possible pancreatic stent occlusion - BISAP score of 0 - CTAP suggestive of pancreatitis, pancreatic pseudocyst still present - Lipase 841 on admission, triglycerides wnl, LFTs wnl - Treated with IVF LR 150cc/hr, pain control with Dilaudid 0.25 mg IV q6h, Tylenol while in hospital - GI consulted: recommending transfer to [facility] as pt was originally supposed to have repeat debridement but did not schedule appointment. Pt may have stent occlusion - Pt accepted for transfer to [facility] on 04/[address] Aidee hale (2) Alcohol withdrawal -Monitored with AWSS protocol while in hospital -Some elevated BPs 160s-170s/90s-110s with occasional anxiety, sweating -Ativan PRN given per protocol -Last known alcohol intake at approximately 9 AM on 03/31 (3) Pancreatic pseudocyst: Plan: Chronic - no interpretation of current abscess on CT scan (4) Mood disorder: Plan: Continue Lamictal and Hydroxyzine - PRN hydroxyzine about once every other day- effective (5) GERD (gastroesophageal reflux disease): Plan: Continue PPI (6) Hepatic vein thrombosis: Plan: HX of in 09/06- Warfarin stopped once at [place] - CT with IV contrast here notes patent hepatic veins - hold further anticoagulation Pending Studies at Discharge: No Stand-Alone Forms: My [facility] [employer] Skilled Items Patient informed of condition?: Yes DNR: No Discharge Level of Care: Other Communicable Disease: No Discharge Prognosis: Stable Lines: Peripheral IV Urinary Catheter: No Medications and DC Order Prescriptions: Continued pantoprazole 40 mg tablet,delayed release (DR/EC) 40 mg PO BID fluoxetine 20 mg capsule 20 mg PO DAILY lamotrigine 100 mg tablet 100 mg PO HS Discharge Orders: Discharge Order (Routine); Ordered 04/02/22 Ordered By: Nickolas Negrete Admission Data Admit Date/Time: 03/31/22 17:01 Attending Provider: Mukund Parsons Admit Provider: Adebayo Gardiner Primary Care Provider: PCP,NO Other Providers: Adebayo Gardiner ; Lauren Lin Supervising Physician Co-Signing Physician Notes Attending attestation Pt seen and examined in concert with Dr. Winslow. In agreement with the documented findings as noted in the resident documentation with any exceptions or additions as noted here. Controlled pain on current medication regimen and tolerating IVF well. Last etOH was approx 1 day ago and experiencing some withdrawal sx mitigated by ativan protocol On examination, S1/S2 nl RRR no MCG. CTAB. Abd TTP epigastrically, ND BS+ve Necrotizing pancreatitis vs. pancreatic stent occlusion - GI consult - recommended transfer to [facility] for re-evaluation of stent and further management. Continue pain control and IVF, trend LFTs Alcohol use disorder w/ withdrawal - AWSS protocol Else see resident documentation as noted. Total attending physician time spent with this patient's care on the day of discharge: 35 minutes. Resident Activity Tracking Resident Involvement: Resident Care Provided Care Provided: Adult Hospital Medicine
--- NOTE | 2022-04-01 16:30 | Hospitalist Progress Note ---
Date of Service April 01, 2022 Assessment & Plan (1) Pancreatitis: Plan: 37 yo M with history of alcoholism and multiple incidents of ETOH induced pancreatitis as well as necrotizing pancreatitis 12/2021- s/p debridement and pancreatic stent placement at [facility] (1) Necrotizing pancreatitis vs possible pancreatic stent occlusion - BISAP score of 0 - CTAP suggestive of pancreatitis, pancreatic pseudocyst still present - Lipase 841 on admission, triglycerides wnl, LFTs wnl - Treated with IVF LR 150cc/hr, pain control with Dilaudid 0.25 mg IV q6h, Tylenol while in hospital - GI consulted: recommending transfer to [facility] as pt was originally supposed to have repeat debridement but did not schedule appointment. Pt may have stent occlusion - Pt accepted for transfer to [facility] on 04/[address] Mojica, awaiting bed placement (2) Alcohol withdrawal -Monitored with AWSS protocol while in hospital -Some elevated BPs 160s-170s/90s-110s with occasional anxiety, sweating -Ativan PRN given per protocol -Last known alcohol intake at approximately 9 AM on 03/31 (3) Pancreatic pseudocyst: Plan: Chronic - no interpretation of current abscess on CT scan (4) Mood disorder: Plan: Continue Lacmictal and Hydroxyzine - PRN hydroxyzine about once every other day- effective (5) GERD (gastroesophageal reflux disease): Plan: Continue PPI (6) Hepatic vein thrombosis: Plan: HX of in 09/06- Warfarin stopped once at [place] - CT with IV contrast here notes patent hepatic veins - hold further anticoagulation Admission and Anticipated Discharge Date Admission Date: March 31, 2022 Supervising Physician Co-Signing Physician Notes Attending attestation Pt seen and examined in concert with Dr. Winslow. In agreement with the documented findings as noted in the resident documentation with any exceptions or additions as noted here. Controlled pain on current medication regimen and tolerating IVF well. Last etOH was approx 1 day ago and experiencing some withdrawal sx mitigated by ativan protocol On examination, S1/S2 nl RRR no MCG. CTAB. Abd TTP epigastrically, ND BS+ve Necrotizing pancreatitis vs. pancreatic stent occlusion - GI consult - recommended transfer to [facility] [place] for re-evaluation of stent and further management. Continue pain control and IVF, trend LFTs Alcohol use disorder w/ withdrawal - AWSS protocol Else see resident documentation as noted. Subjective No acute events overnight. Receiving Dilaudid 0.5 mg IV q4h for pain. Continues to endorse epigastric pain 8/10 severity radiating to back. Tolerating water well. Did have brief sweating/elevated BPs to 170s/90s in late morning but resolved with Ativan administration. Later during rounds, pt denied any alcohol withdrawal symptoms, abdominal pain unchanged. Review of Systems Review of Systems: REVIEW OF SYSTEMS: Constitutional: No fever, sweats or chills Eyes: No diplopia, no worsening or blurred vision ENT: normal hearing, no trouble swallowing Respiratory: No cough, sputum, dyspnea at rest or on exertion Cardiovascular: No chest pain, tightness or palpitations Abdomen: (+) pain, nausea, vomiting, dark urine, No diarrhea or constipation Musculoskeletal: No joint pain, calf pain, swelling Neurologic: No weakness, numbness/tingling, or balance problems Psychiatric: (+) anxiety or depression Skin: No rash or itch Physical Exam Physical Exam: PHYSICAL EXAM: General: awake, alert, no apparent distress Head: Normocephalic, atraumatic ENT: mucous membranes moist Neuro: grossly alert and oriented, no focal motor deficits Chest: equal rise and fall of the chest, no accessory muscle use, no heaves or thrills, Clear to auscultation Cardiac: RRR, normal S1 and S2 GI: epigastric and RLQ abdominal tenderness with mild palpation, NABS x 4 quadrants, soft, no rebound or guarding Psych: Normal mood and affect Skin: no rash or erythema Results & Data Results & Data ([facility] [place]) Vital Signs (Past 12 Hours) Vital Signs Temp Pulse Resp BP BP Pulse Ox O2 Del Method 04/01/22 15:12 36.7 C 70 18 169/102 H 96 Room Air 04/01/22 11:14 162/98 H 04/01/22 11:11 36.9 C 66 18 158/104 H 96 Room Air 04/01/22 10:03 176/104 H 04/01/22 10:02 36.9 C 68 20 179/104 H 96 Room Air 04/01/22 07:48 36.8 C 70 20 169/96 H 97 Room Air Resident Activity Tracking Resident Involvement: Resident Care Provided Care Provided: Adult Hospital Medicine (1) Pancreatitis Chronicity: chronic Pancreatitis type: unspecified pancreatitis type Qualified Code(s): K86.1 - Other chronic pancreatitis
[2022-04-01] MEDS: lamoTRIgine 100 MG TAB PO SCH (20:31)
[2022-04-02] MEDS: LACTATED RINGER'S 1,000 ML IV SCH (00:28)
[2022-04-02] MEDS: HYDROmorphone INJ 0.5 MG/0.5 ML SYR IV PRN (00:28)
== END 2022-04-02 01:20 | disposition short-term general hospital (02) | DRG 439 ==
LOC: ED 13:17 → SUATTDRO 17:01 → EDINP 17:01 → 3N 19:40